=== PATIENT | female | born 1955 | race Caucasian/White ===

== ENCOUNTER → 2022-06-11 | Outpatient (CLI) | payer BC, MEDICARE ==
--- NOTE | 2022-06-11 16:48 | P.PN ---
Progress Note - Text Progress Note Date: 06/11/22 A 5 m walk test was completed with the patient today, time 1: 1.72 seconds, time 2: 1.77 seconds, time 3: 1.38 seconds. An STS risk score was calculated in discussed with the patient.
== END | disposition home or self-care (01) ==
LOC: LABPAT 08:58
PROVIDERS: ATTEND Surgery
DX: Z01.812 Encounter for preprocedural laboratory examination (principal); I25.10 Atherosclerotic heart disease of native coronary artery without angina pectoris
CPT/HCPCS: 93970

== ENCOUNTER 2022-06-17 05:36 | Inpatient (IN) | payer BC, MEDICARE ==
[2022-06-17] MEDS ORDERED: METOPROLOL TARTRATE 12.5 MG TAB PO ONE (06:00)
[2022-06-17] MEDS ORDERED: NITROGLYCERIN-D5W PMX 25 MG/250 ML BTL IV ONE (06:00)
[2022-06-17] MEDS ORDERED: PHENYLEPHRINE 10 MG/ML VIAL IV ONE (06:00)
[2022-06-17] MEDS ORDERED: ELECTROLYTE-A SOLUTION 1,000 ML with POTASSIUM CHLORIDE 100 MEQ, MAGNESIUM SULFATE 16 M... IV ONE ×5 (06:00)
[2022-06-17] MEDS ORDERED: LACTATED RINGERS 1,000 ML IV ONE ×2 (06:00→06:37)
[2022-06-17] MEDS ORDERED: ASPIRIN 325 MG TAB PO ONE (06:00)
[2022-06-17] MEDS ORDERED: CHLORHEXIDINE GLUCONATE 15 ML CUP MUCOUS MEM ONE (06:00)
[2022-06-17] MEDS ORDERED: NOREPINEPHRINE 4 MG in SODIUM CHLORIDE 0.9% 250 ML IV ONE (06:00)
[2022-06-17] MEDS ORDERED: TRANEXAMIC ACID 2,000 MG in SODIUM CHLORIDE 0.9% 80 ML IV ONE (06:00)
[2022-06-17] MEDS ORDERED: PROTAMINE SULFATE 250 MG in EMPTY BAG 1 BAG IV ONE (06:00)
[2022-06-17] MEDS ORDERED: SODIUM CHLORIDE 0.9% 1,000 ML IV ONE (06:00)
[2022-06-17] MEDS ORDERED: HEPARIN SODIUM,PORCINE 5,000 UNIT in SODIUM CHLORIDE 0.9% 500 ML 500 ML IV ONE (06:00)
[2022-06-17] MEDS ORDERED: PHENYLEPHRINE 40 MG in SODIUM CHLORIDE 0.9% 250 ML IV ONE (06:00)
[2022-06-17] MEDS ORDERED: MUPIROCIN 2% OINT 22 GM TUBE NASAL ONE (06:00)
[2022-06-17] MEDS ORDERED: MAGNESIUM SULFATE 16.24 MEQ in EMPTY SYRINGE 1 SYR IV ONE (06:00)
[2022-06-17] MEDS ORDERED: PAPAVERINE 360 MG in SODIUM CHLORIDE 0.9% 90 ML IV ONE ×2 (06:00→10:09)
[2022-06-17] MEDS ORDERED: ALBUMIN HUMAN 25% 50 ML IV ONE (06:00)
[2022-06-17] MEDS ORDERED: NITROGLYCERIN SL TABS 0.4 MG TAB SUBLINGUAL ONE (06:00)
[2022-06-17] MEDS ORDERED: SODIUM BICARB 8.4% 50 ML SYR (1 MEQ/ML) IV ONE (06:00)
[2022-06-17] MEDS ORDERED: NITROGLYCERIN-D5W PMX 50 MG in DEXTROSE/WATER 1 250ML.BAG IV ONE (06:00)
[2022-06-17] MEDS ORDERED: ELECTROLYTE-A SOLUTION 1,000 ML with POTASSIUM CHLORIDE 40 MEQ, MAGNESIUM SULFATE 16 ME... IV ONE ×5 (06:00)
[2022-06-17] MEDS ORDERED: propofoL 1,000 MG/100 ML VIAL IV ONE (06:00)
[2022-06-17] MEDS ORDERED: PROTAMINE SULFATE 10 MG/ML 25 ML VIAL IV ONE (06:00)
[2022-06-17] MEDS ORDERED: INSULIN REGULAR 100 UNIT in SODIUM CHLORIDE 0.9% 100 ML IV ONE (06:00)
[2022-06-17] MEDS ORDERED: CLEVIDIPINE BUTYRATE 25 MG in EMPTY BAG 1 BAG IV ONE (06:00)
[2022-06-17] MEDS ORDERED: MANNITOL 25% 12.5 GM/50 ML VIAL IV ONE (06:00)
[2022-06-17] MEDS ORDERED: ATORVASTATIN 10 MG TAB PO ONE (06:00)
[2022-06-17] MEDS ORDERED: ceFAZolin 1,000 MG in SODIUM CHLORIDE 0.9% IRRIGATIO 1,000 ML IRRIGATION ONE (06:00)
[2022-06-17] MEDS ORDERED: ALBUMIN HUMAN 5% 500 ML IVPB ONE (06:00)
[2022-06-17] MEDS ORDERED: HEPARIN SODIUM 1,000 UN/ML (10ML VL) IV ONE (06:00)
[2022-06-17] MEDS ORDERED: CALCIUM CHLORIDE 100 MG/ML 10 ML SYRINGE IV ONE (06:00)
[2022-06-17] MEDS ORDERED: ONDANSETRON 4 MG/2 ML VIAL ONE (06:51)
[2022-06-17] MEDS ORDERED: SODIUM CHLORIDE 0.9% 100 ML with ceFAZolin 2,000 MG IV ONE ×4 (08:15→12:15)
[2022-06-17 08:47] LABS: ABG Base Excess 1.5 mmol/L; ABG Glucose Whole Blood 94 mg/dL (75-99); ABG HCO3 25 mmol/L (21-25); ABG Hematocrit 37 % (34.0-46.0); ABG Ionized Calcium 4.6 mg/dL (4.5-5.3); ABG Lactic Acid Whole Blood 1.3 mmol/L (0.5-1.6); ABG Oxygen Saturation 99.9 % (94-97); ABG PCO2 34 mmHg (35-45); ABG PH 7.47 (7.35-7.45); ABG Potassium Whole Blood 4.5 mmol/L (3.4-4.5); ABG Sodium Whole Blood 141 mmol/L (135-146); ABG TCO2 26 mmol/L (19-24)
[2022-06-17 09:57] LABS: ABG Base Excess 0.9 mmol/L; ABG Glucose Whole Blood 110 mg/dL (75-99); ABG HCO3 25 mmol/L (21-25); ABG Hematocrit 34 % (34.0-46.0); ABG Ionized Calcium 4.6 mg/dL (4.5-5.3); ABG Oxygen Saturation 99.2 % (94-97); ABG PCO2 38 mmHg (35-45); ABG PH 7.43 (7.35-7.45); ABG PO2 184 mmHg (83-108); ABG Potassium Whole Blood 4.1 mmol/L (3.4-4.5); ABG Sodium Whole Blood 141 mmol/L (135-146); ABG TCO2 26 mmol/L (19-24)
[2022-06-17] MEDS ORDERED: SODIUM CHLORIDE 0.9% 500 ML 500 ML with HEPARIN SODIUM,PORCINE 5,000 UNIT IV ONE ×2 (10:08)
[2022-06-17 10:39] LABS: ABG Base Excess -0.3 mmol/L; ABG Glucose Whole Blood 123 mg/dL (75-99); ABG HCO3 23 mmol/L (21-25); ABG Ionized Calcium 3.9 mg/dL (4.5-5.3); ABG Lactic Acid Whole Blood 1.1 mmol/L (0.5-1.6); ABG PCO2 33 mmHg (35-45); ABG PH 7.46 (7.35-7.45); ABG Potassium Whole Blood 3.9 mmol/L (3.4-4.5); ABG Sodium Whole Blood 136 mmol/L (135-146); ABG TCO2 24 mmol/L (19-24)
[2022-06-17 11:07] LABS: ABG Base Excess 0.4 mmol/L; ABG Glucose Whole Blood 136 mg/dL (75-99); ABG HCO3 25 mmol/L (21-25); ABG Lactic Acid Whole Blood 1.1 mmol/L (0.5-1.6); ABG Oxygen Saturation 99.7 % (94-97); ABG PCO2 39 mmHg (35-45); ABG PH 7.41 (7.35-7.45); ABG PO2 249 mmHg (83-108); ABG Sodium Whole Blood 138 mmol/L (135-146); ABG TCO2 26 mmol/L (19-24)
--- NOTE | 2022-06-17 11:21 | P.ANPRN ---
Procedure Note - Anesthesia - Invasive Line Left Arterial Line Time Out Performed: Yes Date of Procedure: 06/17/22 Location of Patient: PreOp Preparation: Sterile Prep, Sterile Dressing Arterial Line Location: Radial Ultrasound Used: No Purpose - Visualization and Identification of Vasculature: No (left radial 20 guage inserted) Narrative: Central line placement per sterile protocol utilized.
--- NOTE | 2022-06-17 11:22 | P.ANPRN ---
Procedure Note - Anesthesia - Invasive Line Right Brave Zeyad Time Out Performed: Yes Date of Procedure: 06/17/22 Location of Patient: PreOp Preparation: Sterile Prep, Sterile Dressing Ultrasound Used: No Purpose - Visualization and Identification of Vasculature: No (right int jugular 9fr catheter inserted) Narrative: Central line placement per sterile protocol utilized.
[2022-06-17 11:44] LABS: ABG Base Excess 0.6 mmol/L; ABG Glucose Whole Blood 144 mg/dL (75-99); ABG HCO3 26 mmol/L (21-25); ABG Ionized Calcium 4.1 mg/dL (4.5-5.3); ABG Lactic Acid Whole Blood 1.1 mmol/L (0.5-1.6); ABG Oxygen Saturation 99.7 % (94-97); ABG PCO2 42 mmHg (35-45); ABG PH 7.39 (7.35-7.45); ABG PO2 382 mmHg (83-108); ABG Potassium Whole Blood 4.9 mmol/L (3.4-4.5); ABG Sodium Whole Blood 139 mmol/L (135-146); ABG TCO2 27 mmol/L (19-24)
[2022-06-17 12:37] LABS: ABG PO2 >420 mmHg (83-108)
[2022-06-17 12:38] LABS: ABG Hematocrit 24 % (34.0-46.0); ABG PO2 >420 mmHg (83-108)
[2022-06-17 12:39] LABS: ABG Hematocrit 23 % (34.0-46.0)
[2022-06-17 12:40] LABS: ABG Hematocrit 24 % (34.0-46.0)
[2022-06-17 12:48] LABS: ABG Glucose Whole Blood 146 mg/dL (75-99); ABG HCO3 25 mmol/L (21-25); ABG Hematocrit 28 % (34.0-46.0); ABG Ionized Calcium 4.8 mg/dL (4.5-5.3); ABG Lactic Acid Whole Blood 1.6 mmol/L (0.5-1.6); ABG Oxygen Saturation 99.1 % (94-97); ABG PCO2 37 mmHg (35-45); ABG PH 7.44 (7.35-7.45); ABG PO2 167 mmHg (83-108); ABG Potassium Whole Blood 4.3 mmol/L (3.4-4.5); ABG Sodium Whole Blood 140 mmol/L (135-146); ABG TCO2 26 mmol/L (19-24)
[2022-06-17] MEDS ORDERED: Magnesium Replacement Protocol 1 EACH MISC MISCELLANE PRN (13:20)
[2022-06-17] MEDS ORDERED: AMIODARONE 360 MG in DEXTROSE 5% IN WATER 200 ML IV PRN ×2 (13:20)
[2022-06-17] MEDS ORDERED: CALCIUM GLUCONATE IN NACL 2 GM in SALINE 1 100ML.BAG IVPB PRN (13:20)
[2022-06-17] MEDS ORDERED: BENZOCAINE/MENTHOL LOZENG 1 EACH LOZENGE MUCOUS MEM PRN (13:20)
[2022-06-17] MEDS ORDERED: IPRATROPIUM-ALBUTEROL 3 ML NEB INHALATION PRN (13:20)
[2022-06-17] MEDS ORDERED: DEXMEDETOMIDINE/0.9% NACL(PMX) 400 MCG in EMPTY BAG 1 BAG IV SCH (13:20)
[2022-06-17] MEDS ORDERED: DEXTROSE 50% SYRINGE 50 ML IVP PRN ×2 (13:20)
[2022-06-17] MEDS ORDERED: ONDANSETRON 4 MG/2 ML VIAL IVP PRN (13:20)
[2022-06-17] MEDS ORDERED: CLEVIDIPINE BUTYRATE 25 MG in EMPTY BAG 1 BAG IV SCH (13:20)
[2022-06-17] MEDS ORDERED: Potassium Replacement Protocol 1 EACH MISC MISCELLANE PRN (13:20)
[2022-06-17] MEDS ORDERED: hydrALAZINE HCL 20 MG/ML 1 ML VIAL IVP PRN (13:20)
[2022-06-17] MEDS ORDERED: AMIODARONE 450 MG in DEXTROSE 5% IN WATER 250 ML IV PRN ×2 (13:20)
[2022-06-17] MEDS ORDERED: NITROGLYCERIN-D5W PMX 50 MG in DEXTROSE/WATER 1 250ML.BAG IV SCH (13:20)
[2022-06-17] MEDS ORDERED: METOCLOPRAMIDE 5 MG/ML 2 ML VIAL IVP PRN (13:20)
[2022-06-17] MEDS ORDERED: INSULIN REGULAR 100 UNIT in SODIUM CHLORIDE 0.9% 100 ML IV SCH (13:20)
[2022-06-17 13:44] LABS: Glucose,Whole Blood 132 mg/dL (70-110)
[2022-06-17 14:00] LABS: Basophils % (A) 0 %; Eosinophils # (A) 0.1 k/uL (0-0.7); Eosinophils % (A) 0 %; HCT 31.9 % (34.0-46.0); Lymphocytes # (A) 1.2 k/uL (1.0-4.8); Lymphocytes % (A) 9 %; MCH 30.7 pg (25.0-35.0); MCHC 34.4 g/dL (31.0-37.0); MCV 89.5 fL (80.0-100.0); Mean Platelet Volume 8.6; Monocytes # (A) 0.4 k/uL (0-1.0); Monocytes % (A) 3 %; Neutrophils # (A) 11.6 k/uL (1.3-7.7); Neutrophils % (A) 87 %; Platelet Count 107 k/uL (150-450); RBC 3.57 m/uL (3.80-5.40); RDW 13.4 % (11.5-15.5); WBC 13.4 k/uL (3.8-10.6)
[2022-06-17] MEDS: LACTATED RINGERS 1,000 ML IV SCH (14:00)
[2022-06-17 14:09] LABS: INR 1.1 (<1.2); Partial Thromboplastin Time 24.4 sec (22.0-30.0)
[2022-06-17 14:12] LABS: Ionized Calcium 5.2 mg/dL (4.5-5.3)
[2022-06-17 14:20] LABS: ABG Base Excess 0.4 mmol/L; ABG HCO3 26 mmol/L (21-25); ABG Oxygen Saturation 98.8 % (94-97); ABG PCO2 43 mmHg (35-45); ABG PH 7.38 (7.35-7.45); ABG PO2 >400 mmHg (83-108); ABG TCO2 27 mmol/L (19-24)
--- NOTE | 2022-06-17 14:27 | XR ---
EXAMINATION TYPE: XR chest 1V portable DATE OF EXAM: 06/17/2022 COMPARISON: None INDICATION: Postop cardiac surgery TECHNIQUE: Single frontal view of the chest is obtained. FINDINGS: The heart size is normal. The pulmonary vasculature is normal. There is linear opacities within the left mid and lower lung field may be some atelectatic changes. B ilateral chest tubes are present. Pneumothorax is not identified. Images in the supine position, smal l pneumothorax may be more difficult to identify. [place]-Zeyad catheter is present with the tip in the m ain pulmonary artery region. Endotracheal tube tip appears to be at the richard. This could be pulled back approximately 2 cm. Mediastinal tube is present. Nasogastric tube transverses the thorax tip in left upper quadrant of the abdomen. Sternotomy wires are in the midline. IMPRESSION: 1. Low-lying endotracheal tube at nearly the level of the richard. This could be pulled back 2 cm. 2. Additional Lines and catheters discussed above. 3. Atelectatic type changes left mid lung. A Red level critical message alert has been initiated for Venita Negron via the [employer] Results System on 06/17/2022 2:24 PM. This message alert has been sent to Venita Negron via the pref erences provided by the clinician for the receipt of Radiology Critical Findings. Message ID [id number].
[2022-06-17 14:28] LABS: ALT 24 U/L (4-34); AST 54 U/L (14-36); African American GFR (CKD) >90 (>60 ml/min/1.73 sqM); Albumin 2.7 g/dL (3.5-5.0); Alkaline Phosphatase 51 U/L (38-126); Anion Gap 2 mmol/L; Blood Urea Nitrogen 12 mg/dL (7-17); Calcium 8.3 mg/dL (8.4-10.2); Carbon Dioxide 25 mmol/L (22-30); Chloride 110 mmol/L (98-107); Glucose 134 mg/dL (74-99); Magnesium 2.7 mg/dL (1.6-2.3); Non-African American GFR(CKD) >90 (>60 ml/min/1.73 sqM); Potassium 4.4 mmol/L (3.5-5.1); Sodium 137 mmol/L (137-145); Total Bilirubin 0.5 mg/dL (0.2-1.3); Total Protein 4.4 g/dL (6.3-8.2)
--- NOTE | 2022-06-17 14:34 | P.CNPUL ---
History of Present Illness Consult date: 06/17/22 Requesting physician: Lukasz Belle Reason for consult: other (Mechanical ventilator/critical care management) Chief complaint: Coronary artery disease History of present illness: This is a 66-year-old female with history of hyperlipidemia, paroxysmal atrial fibrillation anticoagulated with Eliquis, hypothyroidism, endometrial cancer previous hysterectomy, arthritis. She had developed chest discomfort over 2-3 months which occurred with minimal activity and resided on its own. She did not go stress testing with reversible ischemia and subsequent cardiac catheterization which revealed multivessel coronary artery disease not amendable to PCI. She was seen in consultation by cardiothoracic surgery who recommended coronary artery bypass grafting. Her ejection fraction was stable at 55-60%. No significant valvular abnormalities. No pulmonary hypertension. She was brought in today for an elective coronary revascularization surgery. She received a HERNANDEZ to the LAD and a saphenous vein graft to the OM. She is seen in the immediate postoperative setting in the ICU. She is intubated on mechanical ventilator with current settings assist-control mode at a rate of 12, tidal volume 350, FiO2 100% and a PEEP of 8. Left pleural and mediastinal chest tube secured in place. [place]-Zeyad catheter in place. Cardiac output 3.8. Cardiac index 2.3. PA pressures 27/16. Arterial pressure is 124/69. She is sedated on propofol currently at 20 mg/kg/m. She is on a nitroglycerin drip at 5 mg/m. White count 13.4. Hemoglobin 11.0. Arterial blood gases with a pO2 of 167, pO2 37 and a pH of 7.44. Blood glucose 132. She'll be initiated and DuoNeb inhalations every 4 hours. Antibiotics in the form of cefazolin. Lactated Ringer's at 50 MLS per hour. Review of Systems ROS unobtainable: due to endotracheal tube Past Medical History Past Medical History: Atrial Fibrillation, Coronary Artery Disease (CAD), Cancer, GERD/Reflux, Hyperlipidemia, Osteoarthritis (OA) Additional Past Medical History / Comment(s): chronic back pain,PVCs,SOB,hx Covid infection January 2022,uterine CA 2007-no chemo History of Any Multi-Drug Resistant Organisms: None Reported Past Surgical History: Section, Hysterectomy Past Anesthesia/Blood Transfusion Reactions: No Reported Reaction Additional Past Anesthesia/Blood Transfusion Reaction / Comment(s): no hx blood transfusion Past Psychological History: No Psychological Hx Reported Smoking Status: Former smoker Past Alcohol Use History: None Reported Additional Past Alcohol Use History / Comment(s): quit smoking 38 yrs ago Past Drug Use History: None Reported - Past Family History Brother(s) Family Medical History: Deep Vein Thrombosis (DVT), Pulmonary Embolus Father Family Medical History: Myocardial Infarction ([place]) Additional Family Medical History / Comment(s): [place] at age of 38,lived to Medications and Allergies Home Medications Medication Instructions Recorded Confirmed Type Apixaban [Eliquis] 5 mg PO BID 05/31/22 06/17/22 History Aspirin 324 mg PO DAILY 06/11/22 06/17/22 History Cholecalciferol [Vitamin D3 (10 125 mcg PO DAILY 06/11/22 06/17/22 History Mcg = 400 Iu)] Levothyroxine Sodium [Synthroid] 25 mcg PO QAM 06/11/22 06/17/22 History Vitamin B Complex W/ Vit C 1 dose PO DAILY 06/11/22 06/17/22 History Vitamin E (Dl,Tocopheryl Acet) 180 mg PO DAILY 06/11/22 06/17/22 History [Vitamin E (400 Iu = 180 mg)] Atorvastatin Calcium [Lipitor] 80 mg PO HS 06/14/22 06/17/22 History Metoprolol Succinate (ER) [Toprol 50 mg PO HS 06/14/22 06/17/22 History Xl] Potassium Gluconate [Potassium 99 mg PO DAILY 06/14/22 06/17/22 History Gluconate ER] Zinc Gluconate [Zinc] 50 mg PO DAILY 06/14/22 06/17/22 History Acetaminophen [Tylenol Extra 500 mg PO BID PRN 06/16/22 06/17/22 History Strength] Ibuprofen 800 mg PO Q8H PRN 06/16/22 06/17/22 History Allergies Allergy/AdvReac Type Severity Reaction Status Date / Time bacitracin Allergy blisters Verified 06/17/22 06:10 [From Neosporin ([id number])] neomycin Allergy blisters Verified 06/17/22 06:10 [From Neosporin ([id number])] nickel Allergy blisters Verified 06/17/22 06:10 polymyxin B Allergy blisters Verified 06/17/22 06:10 [From Neosporin ([id number])] Physical Exam Vitals: Vital Signs Temp Pulse Resp BP Pulse Ox FiO2 06/17/22 13:41 100 06/17/22 06:19 97.0 F L 70 15 124/78 96 Intake and Output 06/16/22 06/17/22 06/17/22 22:59 06:59 14:59 Intake Total 202 Output Total 2510 Balance -2308 Intake: IV 202 Output: Urine 1310 Estimated Blood Loss 1200 Other: Weight 71.7 kg GENERAL EXAM: Intubated, sedated 66-year-old female on mechanical ventilator, comfortable in no apparent distress. HEAD: Normocephalic. EYES: Normal reaction of pupils, equal size. NOSE: Clear with pink turbinates. THROAT: No erythema or exudates. NECK: No masses, no JVD. CHEST: Sternal dressing dry and intact. Heart hugger in place. Mediastinal and left pleural chest tubes in place. Pacer wires in place. LUNGS: Equal air entry with no crackles, wheeze, rhonchi or dullness. CVS: S1 and S2 normal with no audible murmur, regular rhythm. ABDOMEN: No hepatosplenomegaly, normal bowel sounds, no guarding or rigidity. SPINE: No scoliosis or deformity SKIN: No rashes CENTRAL NERVOUS SYSTEM: Sedated, tone is normal in all 4 extremities. EXTREMITIES: SCDs in place. There is no peripheral edema. No clubbing, no cyanosis. Peripheral pulses are intact. Results - Laboratory Findings CBC and BMP: 06/17/22 13:43 ABG ABG pH 7.44 (7.35-7.45) 06/17/22 12:48 ABG pCO2 37 mmHg (35-45) 06/17/22 12:48 ABG pO2 167 mmHg (83-108) H 06/17/22 12:48 ABG O2 Saturation 99.1 % (94-97) H 06/17/22 12:48 PT/INR, D-dimer PT 12.0 sec (9.0-12.0) 06/17/22 13:43 INR 1.1 (<1.2) 06/17/22 13:43 Abnormal lab findings: Abnormal Labs 06/11/22 06/17/22 06/17/22 09:08 08:46 09:56 WBC RBC Hgb Hct Plt Count Neutrophils # ABG pH 7.47 H ABG pCO2 34 L ABG pO2 >420 H 184 H ABG HCO3 ABG Total CO2 26 H 26 H ABG O2 Saturation 99.9 H 99.2 H ABG Hematocrit ABG Potassium ABG Ionized Calcium ABG Glucose 110 H Hemoglobin 10.9 L POC Glucose (mg/dL) Arterial Blood Potassium Arterial Blood Glucose 110 H Crossmatch See Detail 06/17/22 06/17/22 06/17/22 10:38 11:06 11:43 WBC RBC Hgb Hct Plt Count Neutrophils # ABG pH 7.46 H ABG pCO2 33 L ABG pO2 >420 H 249 H 382 H ABG HCO3 26 H ABG Total CO2 26 H 27 H ABG O2 Saturation 100.0 H 99.7 H 99.7 H ABG Hematocrit 24 L 23 L 24 L ABG Potassium 5.0 H 4.9 H ABG Ionized Calcium 3.9 L 4.0 L 4.1 L ABG Glucose 123 H 136 H 144 H Hemoglobin 7.8 L 7.3 L 7.9 L POC Glucose (mg/dL) Arterial Blood Potassium 5.0 H 4.9 H Arterial Blood Glucose 123 H 136 H 144 H Crossmatch 06/17/22 06/17/22 06/17/22 12:48 13:42 13:43 WBC 13.4 H RBC 3.57 L Hgb 11.0 L Hct 31.9 L Plt Count 107 L Neutrophils # 11.6 H ABG pH ABG pCO2 ABG pO2 167 H ABG HCO3 ABG Total CO2 26 H ABG O2 Saturation 99.1 H ABG Hematocrit 28 L ABG Potassium ABG Ionized Calcium ABG Glucose 146 H Hemoglobin 9.0 L POC Glucose (mg/dL) 132 H Arterial Blood Potassium Arterial Blood Glucose 146 H Crossmatch - Diagnostic Findings Chest x-ray: image reviewed Assessment and Plan Assessment: Coronary artery disease status post coronary artery bypass grafting utilizing a HERNANDEZ to the LAD, SVG to OM. Postoperative day #0 Hypoxemic respiratory failure secondary to above, expected outcome, remains on the mechanical ventilator History of paroxysmal atrial fibrillation, anticoagulated with all this, currently on hold Hyperlipidemia Hypothyroidism History of endometrial cancer with previous hysterectomy Arthritis Plan: The patient was seen and evaluated Chest x-ray, ABGs, medications and labs reviewed Continue current vent settings Titrate the FiO2 down as tolerated We will plan for early extubation protocol Continue the current treatment plan We will continue to follow and make further recommendations based on her clinical status I have personally seen and examined the patient, performed the documentation and the assessment and plan as written. Number of minutes spent on the visit: 20.
[2022-06-17 14:59] LABS: Glucose,Whole Blood 150 mg/dL (70-110)
[2022-06-17] MEDS: ALBUMIN HUMAN 5% 250 ML in EMPTY BAG 1 BAG IVPB PRN (15:12)
[2022-06-17] MEDS: HEPARIN SODIUM,PORCINE/PF 5,000 UNIT/0.5 ML SYRINGE SQ SCH ×2 (15:24→23:33)
[2022-06-17] MEDS ORDERED: IPRATROPIUM-ALBUTEROL 3 ML NEB INHALATION SCH (16:00)
[2022-06-17 16:06] LABS: Glucose,Whole Blood 138 mg/dL (70-110)
[2022-06-17 16:38] LABS: Basophils % (A) 0 %; Eosinophils % (A) 0 %; HCT 31.8 % (34.0-46.0); HGB 11.1 gm/dL (11.4-16.0); Lymphocytes # (A) 1.2 k/uL (1.0-4.8); Lymphocytes % (A) 8 %; MCHC 34.8 g/dL (31.0-37.0); MCV 89.1 fL (80.0-100.0); Mean Platelet Volume 8.7; Monocytes # (A) 0.6 k/uL (0-1.0); Monocytes % (A) 4 %; Neutrophils # (A) 12.5 k/uL (1.3-7.7); Neutrophils % (A) 86 %; Platelet Count 118 k/uL (150-450); RBC 3.57 m/uL (3.80-5.40); RDW 13.4 % (11.5-15.5); WBC 14.5 k/uL (3.8-10.6)
[2022-06-17 17:11] LABS: Glucose,Whole Blood 161 mg/dL (70-110)
[2022-06-17] MEDS: KETOROLAC 15 MG/ML 1 ML VIAL IVP SCH ×2 (17:18→23:35)
[2022-06-17] MEDS: ACETAMINOPHEN IV (For NPO) 1,000 MG in EMPTY BAG 1 BAG IVPB SCH ×2 (17:18→23:34)
[2022-06-17 18:16] LABS: Glucose,Whole Blood 144 mg/dL (70-110)
[2022-06-17 18:55] LABS: Glucose,Whole Blood 136 mg/dL (70-110)
[2022-06-17 19:02] LABS: Basophils % (A) 0 %; Eosinophils % (A) 0 %; HCT 31.2 % (34.0-46.0); Lymphocytes # (A) 0.7 k/uL (1.0-4.8); Lymphocytes % (A) 5 %; MCH 31.7 pg (25.0-35.0); MCHC 35.3 g/dL (31.0-37.0); MCV 89.9 fL (80.0-100.0); Mean Platelet Volume 9.5; Monocytes # (A) 0.5 k/uL (0-1.0); Monocytes % (A) 4 %; Neutrophils # (A) 13.2 k/uL (1.3-7.7); Neutrophils % (A) 91 %; Platelet Count 111 k/uL (150-450); RBC 3.47 m/uL (3.80-5.40); RDW 13.1 % (11.5-15.5); WBC 14.6 k/uL (3.8-10.6)
[2022-06-17] MEDS: IPRATROPIUM-ALBUTEROL 3 ML NEB INHALATION SCH (19:08)
[2022-06-17 20:00] LABS: Glucose,Whole Blood 138 mg/dL (70-110)
[2022-06-17 20:12] LABS: ABG Base Excess -0.7 mmol/L; ABG HCO3 24 mmol/L (21-25); ABG PCO2 41 mmHg (35-45); ABG PH 7.38 (7.35-7.45); ABG PO2 118 mmHg (83-108); ABG TCO2 26 mmol/L (19-24); Allen Test Performed? Yes
[2022-06-17 20:58] LABS: Glucose,Whole Blood 142 mg/dL (70-110)
[2022-06-17] MEDS ORDERED: MORPHINE SULFATE 2 MG/ML SYRINGE IVP STA (21:03)
--- NOTE | 2022-06-17 21:29 | OP ---
OPERATIVE REPORT PREOPERATIVE DIAGNOSIS: Coronary artery disease. POSTOPERATIVE DIAGNOSIS: Coronary artery disease. PROCEDURES PERFORMED: 1. Coronary artery bypass grafting x2 vessels (left internal mammary artery to left anterior descending artery, saphenous vein graft to obtuse marginal artery). 2. Endoscopic harvest, right greater saphenous vein. 3. Ligation of left atrial appendage using 35 mm AtriClip. 4. Pulmonary vein isolation. 5. Epiaortic ultrasound. 6. Transesophageal echocardiogram. YOUTH SPECIALIST: Mike Way PA-C ANESTHESIA: General. SPECIMEN: None. COMPLICATION: None. INDICATIONS FOR PROCEDURE: The patient is a 66-year-old female with a past medical history significant for hypercholesterolemia, arthritis, recent diagnosis of atrial fibrillation, and hypothyroidism, who reports progressive chest discomfort over the past 3 months. It is also associated with shortness of breath. A calcium scoring test was performed and found to be abnormal. Stress test revealed anterior wall reversible ischemia. Cardiac catheterization revealed a left main stenosis. A coronary artery bypass was recommended. The risks, benefits, and alternatives of procedure were discussed with the patient. All her questions were answered. Consent was obtained. FINDINGS: The left internal mammary artery was small in diameter, but had brisk flow. The LAD measured 1.3 mm. The obtuse marginal artery measured 1.3 mm. DESCRIPTION OF PROCEDURE: The patient was taken to the operating room, placed supine on the operating room table. After induction of general anesthesia, she was prepped and draped in the usual sterile fashion. Preoperative transesophageal echocardiogram confirmed a preserved ejection fraction with no significant valvular pathology. A median sternotomy was performed. The left internal mammary artery was harvested in a standard fashion taking care to clip all branches. Intravenous heparin was administered. The vessel was small in diameter, but had brisk flow. Simultaneously, greater saphenous vein was harvested from the right lower extremity using endoscopic technique. All branches were tied. Both the mammary artery and saphenous vein were good conduits. A pericardial cradle was created. The ascending aorta was palpated. There was no significant calcific plaque noted. Epiaortic ultrasound was then performed on the ascending aorta. Again, no calcific plaque or atheromatous disease was identified. Arterial cannula was placed in the distal ascending aorta. A venous cannula was placed through the right atrial appendage directed into the IVC. Both antegrade and retrograde catheters were placed as well. The patient was then placed on cardiopulmonary bypass with good decompression of the heart. Attention was then turned to the pulmonary vein isolation. The right-sided pulmonary veins were carefully dissected free and encircled. An AtriCure 1 was passed along the right atrial cuff. Using RFA ablation, 3 lesion sets were applied. The aortic cross-clamp was applied. Cold blood potassium cardioplegia was delivered in both antegrade and retrograde fashion to achieve arrest of the heart. Of note, cardioplegia was delivered every 15 to 20 minutes while the patient remained under crossclamp. I began by identifying the left atrial appendage. A 35-mm AtriClip was placed across its base to ensure ligation. Next, attention was turned to the lateral wall. The obtuse marginal artery was identified and dissected free. It was small in diameter, but I felt was amenable for bypass. A small arteriotomy was created. This vessel accepted a 1.0 mm probe. Using saphenous vein in a reverse fashion, end-to-side anastomosis was created. This was performed using a running 7-0 Prolene suture. The graft was hemostatic and had a great flow. Of note, all the patient's tissues were quite friable to touch. Next, attention was turned to the anterior wall. The left anterior descending artery was identified and dissected free in its midportion. A small arteriotomy was created. This vessel accepted a 1.0 mm probe. Using the left internal mammary artery, an end-to-side anastomosis was created. This was performed using a running 8-0 Prolene suture. The graft was hemostatic. The mammary pedicle was then tacked on the anterior surface of the heart. Attention was then turned to the proximal anastomosis. This was performed in end-to- side fashion using running 6-0 Prolene suture. 1 L of warm blood was delivered in retrograde fashion. Both lidocaine and magnesium were administered as well. The aortic crossclamp was removed. The vein graft was de-aired in the standard fashion. Distal anastomoses were inspected and appeared to be hemostatic. A temporary ventricular pacing wire was placed and brought through the skin. The patient was then weaned off cardiopulmonary bypass. She was without difficulty. Followup transesophageal echocardiogram confirmed preserved ejection fraction, which was actually improved compared to preoperative and no change of aortic pathology. Protamine was administered. There were no adverse reactions. The remaining cannulas were removed. The mediastinum was copiously irrigated with warm saline solution. Again, all surgical sites were inspected and appeared to be hemostatic. Soft tissues were reapproximated of the ascending aorta as well as the apex of the heart. Chest tubes were placed in both the left pleural space and mediastinum. A Phi drain was placed in the right pleural space. These were all secured to the skin using sutures. The sternum was then reapproximated using the primary cable system, which was nickel free given the patient's allergy. These were placed in a [id number] fashion. At the completion of closure, the sternum was well aligned. The remainder of the wound was closed in layers. A sterile dressing was applied. The patient appeared to tolerate the procedure well. There were no immediate complications. She returned to the ICU in critical, but stable condition. She did not receive any intraoperative blood products. EMMANUEL / PHUN: [phone] /
[2022-06-17 22:08] LABS: Glucose,Whole Blood 152 mg/dL (70-110)
[2022-06-17] MEDS: ATORVASTATIN 80 MG TAB PO SCH (22:23)
[2022-06-17 22:59] LABS: Glucose,Whole Blood 142 mg/dL (70-110)
[2022-06-18 00:03] LABS: Glucose,Whole Blood 130 mg/dL (70-110)
[2022-06-18 01:16] LABS: Glucose,Whole Blood 127 mg/dL (70-110)
[2022-06-18 02:12] LABS: Glucose,Whole Blood 122 mg/dL (70-110)
[2022-06-18 03:10] LABS: Glucose,Whole Blood 114 mg/dL (70-110)
[2022-06-18 03:57] LABS: Glucose,Whole Blood 128 mg/dL (70-110)
[2022-06-18 04:09] LABS: Basophils % (A) 0 %; Eosinophils % (A) 0 %; HCT 30.1 % (34.0-46.0); HGB 10.7 gm/dL (11.4-16.0); Lymphocytes # (A) 1.5 k/uL (1.0-4.8); Lymphocytes % (A) 9 %; MCH 31.9 pg (25.0-35.0); MCHC 35.7 g/dL (31.0-37.0); MCV 89.3 fL (80.0-100.0); Mean Platelet Volume 9.1; Monocytes # (A) 0.9 k/uL (0-1.0); Monocytes % (A) 5 %; Neutrophils # (A) 14.4 k/uL (1.3-7.7); Neutrophils % (A) 85 %; Platelet Count 122 k/uL (150-450); RBC 3.37 m/uL (3.80-5.40); RDW 13.1 % (11.5-15.5)
[2022-06-18 04:15] LABS: Ionized Calcium 4.8 mg/dL (4.5-5.3)
[2022-06-18 04:24] LABS: ALT 21 U/L (4-34); AST 53 U/L (14-36); African American GFR (CKD) >90 (>60 ml/min/1.73 sqM); Albumin 3.1 g/dL (3.5-5.0); Alkaline Phosphatase 54 U/L (38-126); Anion Gap 4 mmol/L; Blood Urea Nitrogen 14 mg/dL (7-17); Carbon Dioxide 26 mmol/L (22-30); Chloride 107 mmol/L (98-107); Glucose 122 mg/dL (74-99); Non-African American GFR(CKD) 88 (>60 ml/min/1.73 sqM); Potassium 4.4 mmol/L (3.5-5.1); Sodium 137 mmol/L (137-145); Total Bilirubin 0.3 mg/dL (0.2-1.3); Total Protein 4.8 g/dL (6.3-8.2)
[2022-06-18 05:01] LABS: Glucose,Whole Blood 135 mg/dL (70-110)
[2022-06-18 05:59] LABS: Glucose,Whole Blood 92 mg/dL (70-110)
[2022-06-18] MEDS: ALBUMIN HUMAN 5% 250 ML in EMPTY BAG 1 BAG IVPB PRN ×3 (06:16→10:09)
[2022-06-18] MEDS: KETOROLAC 15 MG/ML 1 ML VIAL IVP SCH ×4 (06:22→23:49)
[2022-06-18] MEDS: LEVOTHYROXINE 25 MCG TAB PO SCH (06:22)
[2022-06-18 06:49] LABS: Glucose,Whole Blood 147 mg/dL (70-110)
--- NOTE | 2022-06-18 07:12 | XR ---
EXAMINATION TYPE: XR chest 1V portable DATE OF EXAM: 06/18/2022 HISTORY: Post Op CABG COMPARISON: 06/17/2022 TECHNIQUE: Single view of the chest is submitted. FINDINGS: Endotracheal tube and NG tube have been moved. Bilateral chest tubes, mediastinal drains and [place]-Stefania z catheter remain unchanged in position. No evidence for sizable pneumothorax. Post operative changes of CABG. No sizeable pneumothorax. Scattered Pleural-parenchymal opacities may reflect atelectasis. The heart is not enlarged. IMPRESSION: 1. Post operative changes of CABG.
[2022-06-18] MEDS: ZINC SULFATE 220 MG CAP PO SCH (07:40)
[2022-06-18] MEDS: CLOPIDOGREL 75 MG TAB PO SCH (07:40)
[2022-06-18] MEDS: CHOLECALCIFEROL 125 MCG (5000 IU) TABLET PO SCH (07:40)
[2022-06-18] MEDS: HEPARIN SODIUM,PORCINE/PF 5,000 UNIT/0.5 ML SYRINGE SQ SCH ×3 (07:40→23:49)
[2022-06-18] MEDS: VITAMIN E (DL,TOCOPHERYL ACET) 400 UNIT (180 MG) CAP PO SCH (07:41)
[2022-06-18] MEDS: HYDROcodone/APAP 5-325MG 1 EACH TAB PO PRN ×3 (07:41→20:31)
[2022-06-18] MEDS: CYCLOBENZAPRINE 10 MG TAB PO PRN ×2 (07:47→22:09)
[2022-06-18] MEDS: IPRATROPIUM-ALBUTEROL 3 ML NEB INHALATION SCH ×4 (07:55→19:21)
[2022-06-18] MEDS: DEXTROSE 5% IN WATER 100 ML with AMIODARONE 150 MG IV PRN ×3 (08:00→14:27)
[2022-06-18] MEDS: METOPROLOL TARTRATE 25 MG TAB PO SCH ×2 (08:00→20:30)
--- NOTE | 2022-06-18 08:08 | P.PN ---
Subjective Progress Note Date: 06/18/22 Principal diagnosis: Coronary artery disease, stable angina. Previous medical history of hyperlipidemia, paroxysmal atrial fibrillation, hypothyroid, endometrial cancer, previous tobacco dependence POD #1 coronary artery bypass grafting 2 vessels, left internal mammary artery to the left anterior descending artery, reverse saphenous vein graft to the obtuse marginal artery, endoscopic harvesting of the right greater saphenous vein, ligation of the left atrial appendage using a 35 mm AtriClip, pulmonary vein isolation, epi-aortic ultrasound, intraoperative transesophageal echocardiogram Postoperative acute blood loss anemia and thrombocytopenia, expected given hemodilution and cardiopulmonary bypass pump Atrial fibrillation, known comment occurrence after open heart surgery especially with history of paroxysmal atrial fibrillation, not a complication The patient was seen and examined this morning sitting up in a recliner on the intensive care unit in no acute distress. She was successfully extubated last night at 20:23. Initially she was in sinus rhythm, however shortly after assessment she went into atrial fibrillation with heart rate in the 130s to 140s . Remains hemodynamically stable. States post surgical pain is mostly controlled with current medication regimen, denies shortness of breath, her only complaint is of back spasms which she states she has had in the past. She is currently on 2 L nasal cannula with oxygen saturation in the mid 90s. Lab work and chest x-ray reviewed. Right internal jugular [place]/Cordis, left radial arterial line, mediastinal/right/left pleural chest tubes all present. No other new concerns. Objective - Vital Signs Vital signs: Vital Signs Temp 99.9 F H 06/18/22 04:00 Pulse 70 06/18/22 07:00 Resp 12 06/18/22 07:00 BP 124/78 06/17/22 06:19 Pulse Ox 96 06/18/22 07:00 FiO2 40 06/17/22 19:22 Intake & Output 06/17/22 06/18/22 06/18/22 18:59 06:59 18:59 Intake Total 872.633 8993.130 Output Total 3505 919 Balance -2763.506 139.130 Weight 74.1 kg Intake: IV 366 278 cardiac index 110 170 pressure bag 54 108 Intake, IV Titration 375.494 780.130 Amount ACETAMINOPHEN IV (For NPO 100 ) 1,000 mg In Empty Bag 1 bag @ 400 mls/hr IVPB Q6HR [facility] Rx#:[id number] Dexmedetomidine/0.9% NaCl 10.157 (Pmx) 400 mcg In Empty Bag 1 bag @ Titrate IV . Q0M [facility] Rx#:[id number] Insulin Regular 100 unit 2.98 19.973 In Sodium Chloride 0.9% 100 ml @ Per Protocol IV .Q0M [facility] Rx#:[id number] Lactated Ringers 1,000 ml 300 600 @ 20 mls/hr IV .Q24H [facility] Rx#:[id number] ceFAZolin 2 gm In Sodium 50 50 Chloride 0.9% 50 ml @ 100 mls/hr IVPB Q8HR [facility] Rx# :[id number] propofoL 1,000 mg In 22.514 Empty Bag 1 bag @ Titrate IV .Q0M [facility] Rx#: [id number] Output: Chest Tube Drainage 225 384 MS 95 164 MS/LP 130 220 Urine 2080 535 Estimated Blood Loss 1200 Other: Voiding Method Indwelling Catheter Indwelling Catheter ABP, PAP, CO, CI - Last Documented Arterial Blood Pressure 101/45 Pulmonary Artery Pressure 26/7 Cardiac Output 3.4 Cardiac Index 1.9 - Exam CONSTITUTIONAL: Appears comfortable, cooperative, no acute distress RESPIRATORY: Lungs sounds diminished bilaterally. Respirations even, nonlabor ed. Currently on 2 L nasal cannula with oxygen saturation 96%. Able to achieve 500 mL on incentive spirometry. Weak cough. CARDIOVASCULAR: S1, S2 present. Tachycardia, irregular rate and rhythm, rapid atrial fibrillation on telemetry. Sternum stable. Palpable peripheral pulses bilaterally. No edema present. No calf pain or tenderness noted. Heart hugger in place with patient demonstrating appropriate use. Antiembolism stockings, SCDs present. GASTROINTESTINAL: Abdomen soft, nontender, nondistended. Hypoactive bowel sounds present 4 quadrants. Tolerating clear liquids. Denies flatus, nausea, abdominal pain GENITOURINARY: Singh present draining clear, yellow urine. Output overnight 25-60 mL per hour INTEGUMENTARY: Skin is warm and dry with evidence of good perfusion. Anterior chest incision well approximated and covered with dry intact dressing. Right lower extremity EVH site well approximated without redness or drainage. NEUROLOGIC: Cranial nerves II through XII intact MUSKULOSKELETAL: Able to move all extremities, strength equal bilaterally, gait normal PSYCHIATRIC: Alert and oriented to person place and time, appropriate affect, intact judgment and insight INVASIVE LINES AND TUBES: Mediastinal/left/right pleural chest tubes present and connected to wall suction, no air leaks present. Mediastinal tube with 110 mL serosanguineous drainage overnight, 300 mL since surgery. Left/right pleural chest tubes with 130 mL serosanguineous drainage overnight, 350 mL since surgery. Ventricular epicardial pacemaker wire present, connected to generator, backup rate 50 bpm. Right internal jugular [place]/Cord[place], left radial arterial line present. Last CO/CI 3.4/1.9, PA 36/12, CVP 8. - Allied health notes Allied health notes reviewed: nursing - Labs CBC & Chem 7: 06/18/22 04:00 06/18/22 04:00 Labs: Abnormal Lab Results - Last 24 Hours (Table) 06/11/22 06/17/22 06/17/22 Range/Units 09:08 08:46 09:56 WBC (3.8-10.6) k/uL RBC (3.80-5.40) m/uL Hgb (11.4-16.0) gm/dL Hct (34.0-46.0) % Plt Count (150-450) k/uL Neutrophils # (1.3-7.7) k/uL Lymphocytes # (1.0-4.8) k/uL ABG pH 7.47 H (7.35-7.45) ABG pCO2 34 L (35-45) mmHg ABG pO2 >420 H 184 H (83-108) mmHg ABG HCO3 (21-25) mmol/L ABG Total CO2 26 H 26 H (19-24) mmol/L ABG O2 Saturation 99.9 H 99.2 H (94-97) % ABG Hematocrit (34.0-46.0) % ABG Potassium (3.4-4.5) mmol/L ABG Ionized Calcium (4.5-5.3) mg/dL ABG Glucose 110 H (75-99) mg/dL Hemoglobin 10.9 L (11.4-16.0) gm/dL Chloride (98-107) mmol/L Glucose (74-99) mg/dL POC Glucose (mg/dL) (70-110) mg/dL Calcium (8.4-10.2) mg/dL Magnesium (1.6-2.3) mg/dL AST (14-36) U/L Total Protein (6.3-8.2) g/dL Albumin (3.5-5.0) g/dL Arterial Blood Potassium (3.4-4.5) mmol/L Arterial Blood Glucose 110 H (75-99) mg/dL Crossmatch See Detail 06/17/22 06/17/22 06/17/22 Range/Units 10:38 11:06 11:43 WBC (3.8-10.6) k/uL RBC (3.80-5.40) m/uL Hgb (11.4-16.0) gm/dL Hct (34.0-46.0) % Plt Count (150-450) k/uL Neutrophils # (1.3-7.7) k/uL Lymphocytes # (1.0-4.8) k/uL ABG pH 7.46 H (7.35-7.45) ABG pCO2 33 L (35-45) mmHg ABG pO2 >420 H 249 H 382 H (83-108) mmHg ABG HCO3 26 H (21-25) mmol/L ABG Total CO2 26 H 27 H (19-24) mmol/L ABG O2 Saturation 100.0 H 99.7 H 99.7 H (94-97) % ABG Hematocrit 24 L 23 L 24 L (34.0-46.0) % ABG Potassium 5.0 H 4.9 H (3.4-4.5) mmol/L ABG Ionized Calcium 3.9 L 4.0 L 4.1 L (4.5-5.3) mg/dL ABG Glucose 123 H 136 H 144 H (75-99) mg/dL Hemoglobin 7.8 L 7.3 L 7.9 L (11.4-16.0) gm/dL Chloride (98-107) mmol/L Glucose (74-99) mg/dL POC Glucose (mg/dL) (70-110) mg/dL Calcium (8.4-10.2) mg/dL Magnesium (1.6-2.3) mg/dL AST (14-36) U/L Total Protein (6.3-8.2) g/dL Albumin (3.5-5.0) g/dL Arterial Blood Potassium 5.0 H 4.9 H (3.4-4.5) mmol/L Arterial Blood Glucose 123 H 136 H 144 H (75-99) mg/dL Crossmatch 06/17/22 06/17/22 06/17/22 Range/Units 12:48 13:42 13:43 WBC 13.4 H (3.8-10.6) k/uL RBC 3.57 L (3.80-5.40) m/uL Hgb 11.0 L (11.4-16.0) gm/dL Hct 31.9 L (34.0-46.0) % Plt Count 107 L (150-450) k/uL Neutrophils # 11.6 H (1.3-7.7) k/uL Lymphocytes # (1.0-4.8) k/uL ABG pH (7.35-7.45) ABG pCO2 (35-45) mmHg ABG pO2 167 H (83-108) mmHg ABG HCO3 (21-25) mmol/L ABG Total CO2 26 H (19-24) mmol/L ABG O2 Saturation 99.1 H (94-97) % ABG Hematocrit 28 L (34.0-46.0) % ABG Potassium (3.4-4.5) mmol/L ABG Ionized Calcium (4.5-5.3) mg/dL ABG Glucose 146 H (75-99) mg/dL Hemoglobin 9.0 L (11.4-16.0) gm/dL Chloride (98-107) mmol/L Glucose (74-99) mg/dL POC Glucose (mg/dL) 132 H (70-110) mg/dL Calcium (8.4-10.2) mg/dL Magnesium (1.6-2.3) mg/dL AST (14-36) U/L Total Protein (6.3-8.2) g/dL Albumin (3.5-5.0) g/dL Arterial Blood Potassium (3.4-4.5) mmol/L Arterial Blood Glucose 146 H (75-99) mg/dL Crossmatch 06/17/22 06/17/22 06/17/22 Range/Units 13:43 14:19 14:58 WBC (3.8-10.6) k/uL RBC (3.80-5.40) m/uL Hgb (11.4-16.0) gm/dL Hct (34.0-46.0) % Plt Count (150-450) k/uL Neutrophils # (1.3-7.7) k/uL Lymphocytes # (1.0-4.8) k/uL ABG pH (7.35-7.45) ABG pCO2 (35-45) mmHg ABG pO2 >400 H (83-108) mmHg ABG HCO3 26 H (21-25) mmol/L ABG Total CO2 27 H (19-24) mmol/L ABG O2 Saturation 98.8 H (94-97) % ABG Hematocrit (34.0-46.0) % ABG Potassium (3.4-4.5) mmol/L ABG Ionized Calcium (4.5-5.3) mg/dL ABG Glucose (75-99) mg/dL Hemoglobin (11.4-16.0) gm/dL Chloride 110 H (98-107) mmol/L Glucose 134 H (74-99) mg/dL POC Glucose (mg/dL) 150 H (70-110) mg/dL Calcium 8.3 L (8.4-10.2) mg/dL Magnesium 2.7 H (1.6-2.3) mg/dL AST 54 H (14-36) U/L Total Protein 4.4 L (6.3-8.2) g/dL Albumin 2.7 L (3.5-5.0) g/dL Arterial Blood Potassium (3.4-4.5) mmol/L Arterial Blood Glucose (75-99) mg/dL Crossmatch 06/17/22 06/17/22 06/17/22 Range/Units 16:04 16:05 17:10 WBC 14.5 H (3.8-10.6) k/uL RBC 3.57 L (3.80-5.40) m/uL Hgb 11.1 L (11.4-16.0) gm/dL Hct 31.8 L (34.0-46.0) % Plt Count 118 L (150-450) k/uL Neutrophils # 12.5 H (1.3-7.7) k/uL Lymphocytes # (1.0-4.8) k/uL ABG pH (7.35-7.45) ABG pCO2 (35-45) mmHg ABG pO2 (83-108) mmHg ABG HCO3 (21-25) mmol/L ABG Total CO2 (19-24) mmol/L ABG O2 Saturation (94-97) % ABG Hematocrit (34.0-46.0) % ABG Potassium (3.4-4.5) mmol/L ABG Ionized Calcium (4.5-5.3) mg/dL ABG Glucose (75-99) mg/dL Hemoglobin (11.4-16.0) gm/dL Chloride (98-107) mmol/L Glucose (74-99) mg/dL POC Glucose (mg/dL) 138 H 161 H (70-110) mg/dL Calcium (8.4-10.2) mg/dL Magnesium (1.6-2.3) mg/dL AST (14-36) U/L Total Protein (6.3-8.2) g/dL Albumin (3.5-5.0) g/dL Arterial Blood Potassium (3.4-4.5) mmol/L Arterial Blood Glucose (75-99) mg/dL Crossmatch 06/17/22 06/17/22 06/17/22 Range/Units 18:15 18:51 18:54 WBC 14.6 H (3.8-10.6) k/uL RBC 3.47 L (3.80-5.40) m/uL Hgb 11.0 L (11.4-16.0) gm/dL Hct 31.2 L (34.0-46.0) % Plt Count 111 L (150-450) k/uL Neutrophils # 13.2 H (1.3-7.7) k/uL Lymphocytes # 0.7 L (1.0-4.8) k/uL ABG pH (7.35-7.45) ABG pCO2 (35-45) mmHg ABG pO2 (83-108) mmHg ABG HCO3 (21-25) mmol/L ABG Total CO2 (19-24) mmol/L ABG O2 Saturation (94-97) % ABG Hematocrit (34.0-46.0) % ABG Potassium (3.4-4.5) mmol/L ABG Ionized Calcium (4.5-5.3) mg/dL ABG Glucose (75-99) mg/dL Hemoglobin (11.4-16.0) gm/dL Chloride (98-107) mmol/L Glucose (74-99) mg/dL POC Glucose (mg/dL) 144 H 136 H (70-110) mg/dL Calcium (8.4-10.2) mg/dL Magnesium (1.6-2.3) mg/dL AST (14-36) U/L Total Protein (6.3-8.2) g/dL Albumin (3.5-5.0) g/dL Arterial Blood Potassium (3.4-4.5) mmol/L Arterial Blood Glucose (75-99) mg/dL Crossmatch 06/17/22 06/17/22 06/17/22 Range/Units 19:57 20:10 20:57 WBC (3.8-10.6) k/uL RBC (3.80-5.40) m/uL Hgb (11.4-16.0) gm/dL Hct (34.0-46.0) % Plt Count (150-450) k/uL Neutrophils # (1.3-7.7) k/uL Lymphocytes # (1.0-4.8) k/uL ABG pH (7.35-7.45) ABG pCO2 (35-45) mmHg ABG pO2 118 H (83-108) mmHg ABG HCO3 (21-25) mmol/L ABG Total CO2 26 H (19-24) mmol/L ABG O2 Saturation 99.0 H (94-97) % ABG Hematocrit (34.0-46.0) % ABG Potassium (3.4-4.5) mmol/L ABG Ionized Calcium (4.5-5.3) mg/dL ABG Glucose (75-99) mg/dL Hemoglobin (11.4-16.0) gm/dL Chloride (98-107) mmol/L Glucose (74-99) mg/dL POC Glucose (mg/dL) 138 H 142 H (70-110) mg/dL Calcium (8.4-10.2) mg/dL Magnesium (1.6-2.3) mg/dL AST (14-36) U/L Total Protein (6.3-8.2) g/dL Albumin (3.5-5.0) g/dL Arterial Blood Potassium (3.4-4.5) mmol/L Arterial Blood Glucose (75-99) mg/dL Crossmatch 06/17/22 06/17/22 06/18/22 Range/Units 22:06 22:58 00:02 WBC (3.8-10.6) k/uL RBC (3.80-5.40) m/uL Hgb (11.4-16.0) gm/dL Hct (34.0-46.0) % Plt Count (150-450) k/uL Neutrophils # (1.3-7.7) k/uL Lymphocytes # (1.0-4.8) k/uL ABG pH (7.35-7.45) ABG pCO2 (35-45) mmHg ABG pO2 (83-108) mmHg ABG HCO3 (21-25) mmol/L ABG Total CO2 (19-24) mmol/L ABG O2 Saturation (94-97) % ABG Hematocrit (34.0-46.0) % ABG Potassium (3.4-4.5) mmol/L ABG Ionized Calcium (4.5-5.3) mg/dL ABG Glucose (75-99) mg/dL Hemoglobin (11.4-16.0) gm/dL Chloride (98-107) mmol/L Glucose (74-99) mg/dL POC Glucose (mg/dL) 152 H 142 H 130 H (70-110) mg/dL Calcium (8.4-10.2) mg/dL Magnesium (1.6-2.3) mg/dL AST (14-36) U/L Total Protein (6.3-8.2) g/dL Albumin (3.5-5.0) g/dL Arterial Blood Potassium (3.4-4.5) mmol/L Arterial Blood Glucose (75-99) mg/dL Crossmatch 06/18/22 06/18/22 06/18/22 Range/Units 01:15 02:10 03:08 WBC (3.8-10.6) k/uL RBC (3.80-5.40) m/uL Hgb (11.4-16.0) gm/dL Hct (34.0-46.0) % Plt Count (150-450) k/uL Neutrophils # (1.3-7.7) k/uL Lymphocytes # (1.0-4.8) k/uL ABG pH (7.35-7.45) ABG pCO2 (35-45) mmHg ABG pO2 (83-108) mmHg ABG HCO3 (21-25) mmol/L ABG Total CO2 (19-24) mmol/L ABG O2 Saturation (94-97) % ABG Hematocrit (34.0-46.0) % ABG Potassium (3.4-4.5) mmol/L ABG Ionized Calcium (4.5-5.3) mg/dL ABG Glucose (75-99) mg/dL Hemoglobin (11.4-16.0) gm/dL Chloride (98-107) mmol/L Glucose (74-99) mg/dL POC Glucose (mg/dL) 127 H 122 H 114 H (70-110) mg/dL Calcium (8.4-10.2) mg/dL Magnesium (1.6-2.3) mg/dL AST (14-36) U/L Total Protein (6.3-8.2) g/dL Albumin (3.5-5.0) g/dL Arterial Blood Potassium (3.4-4.5) mmol/L Arterial Blood Glucose (75-99) mg/dL Crossmatch 06/18/22 06/18/22 06/18/22 Range/Units 03:53 04:00 04:00 WBC 17.0 H (3.8-10.6) k/uL RBC 3.37 L (3.80-5.40) m/uL Hgb 10.7 L (11.4-16.0) gm/dL Hct 30.1 L (34.0-46.0) % Plt Count 122 L (150-450) k/uL Neutrophils # 14.4 H (1.3-7.7) k/uL Lymphocytes # (1.0-4.8) k/uL ABG pH (7.35-7.45) ABG pCO2 (35-45) mmHg ABG pO2 (83-108) mmHg ABG HCO3 (21-25) mmol/L ABG Total CO2 (19-24) mmol/L ABG O2 Saturation (94-97) % ABG Hematocrit (34.0-46.0) % ABG Potassium (3.4-4.5) mmol/L ABG Ionized Calcium (4.5-5.3) mg/dL ABG Glucose (75-99) mg/dL Hemoglobin (11.4-16.0) gm/dL Chloride (98-107) mmol/L Glucose 122 H (74-99) mg/dL POC Glucose (mg/dL) 128 H (70-110) mg/dL Calcium 8.0 L (8.4-10.2) mg/dL Magnesium (1.6-2.3) mg/dL AST 53 H (14-36) U/L Total Protein 4.8 L (6.3-8.2) g/dL Albumin 3.1 L (3.5-5.0) g/dL Arterial Blood Potassium (3.4-4.5) mmol/L Arterial Blood Glucose (75-99) mg/dL Crossmatch 06/18/22 06/18/22 Range/Units 05:00 06:47 WBC (3.8-10.6) k/uL RBC (3.80-5.40) m/uL Hgb (11.4-16.0) gm/dL Hct (34.0-46.0) % Plt Count (150-450) k/uL Neutrophils # (1.3-7.7) k/uL Lymphocytes # (1.0-4.8) k/uL ABG pH (7.35-7.45) ABG pCO2 (35-45) mmHg ABG pO2 (83-108) mmHg ABG HCO3 (21-25) mmol/L ABG Total CO2 (19-24) mmol/L ABG O2 Saturation (94-97) % ABG Hematocrit (34.0-46.0) % ABG Potassium (3.4-4.5) mmol/L ABG Ionized Calcium (4.5-5.3) mg/dL ABG Glucose (75-99) mg/dL Hemoglobin (11.4-16.0) gm/dL Chloride (98-107) mmol/L Glucose (74-99) mg/dL POC Glucose (mg/dL) 135 H 147 H (70-110) mg/dL Calcium (8.4-10.2) mg/dL Magnesium (1.6-2.3) mg/dL AST (14-36) U/L Total Protein (6.3-8.2) g/dL Albumin (3.5-5.0) g/dL Arterial Blood Potassium (3.4-4.5) mmol/L Arterial Blood Glucose (75-99) mg/dL Crossmatch - Imaging and Cardiology Chest x-ray: report reviewed, image reviewed Assessment and Plan Assessment: 1. Coronary artery disease, stable angina, status post 2 vessel CABG 2. Preserved left ventricular systolic function, EF 55-60% 3. History of hyperlipidemia, treated, cholesterol 208, LDL 129 4. Paroxysmal atrial fibrillation, on Eliquis outpatient, status post pulmonary vein isolation and left atrial appendage ligation 5. Hypothyroid, preoperative TSH 4.289 6. History of endometrial cancer 7. Previous tobacco dependence, preoperative FEV1 110% of predicted 8. Postoperative acute blood loss anemia and thrombocytopenia, expected 9. Atrial fibrillation, known comment occurrence after open heart surgery especially with history of paroxysmal atrial fibrillation, not a complication Plan: 1. Continue to maximize medical therapy with aspirin, statin, Plavix, beta wendy therapy. Will increase beta wendy therapy as tolerated 2. Initiate amiodarone protocol. Patient will likely be discharged home on her outpatient dose of Eliquis, no anticoagulation at this time 3. Wean O2 as tolerated. Encourage incentive spirometry 10 times every hour while awake. Bronchodilators per pulmonology 4. Increase activity, ambulate as tolerated. PT/OT/cardiac rehab consulted 5. Will monitor daily labs and x-rays. Electrolyte replacement per protocol 6. GI/DVT prophylaxis 7. Pain control with current medication regimen 8. Insulin management per primary care service. Patient is not diabetic, preoperative hemoglobin A1c 5.5% 9. Discontinue [place], connect Cordis to continuous CVP monitoring 10. Continue chest tubes for another 24 hours 11. Continue Singh catheter for another 24 hours for strict accurate intake and output 12. Will add Flexeril for back spasms, patient has tolerated in the past 13. More recommendations to follow
[2022-06-18 08:11] LABS: Glucose,Whole Blood 171 mg/dL (70-110)
[2022-06-18] MEDS ORDERED: VITAMIN B COMPLEX PO SCH (09:00)
[2022-06-18] MEDS ORDERED: METOPROLOL TARTRATE 12.5 MG TAB PO SCH (09:00)
[2022-06-18] MEDS ORDERED: VIT C PO SCH (09:00)
[2022-06-18] MEDS ORDERED: PANTOPRAZOLE 40 MG/10 ML VIAL IVP SCH (09:00)
[2022-06-18] MEDS ORDERED: bisacodyL 10 MG SUPP RECTAL PRN (09:00)
[2022-06-18] MEDS: ASPIRIN 325 MG TAB PO SCH (09:09)
[2022-06-18 09:16] LABS: Glucose,Whole Blood 139 mg/dL (70-110)
--- NOTE | 2022-06-18 09:35 | P.CRDCN ---
History of Present Illness History of present illness: HISTORY OF PRESENTING ILLNESS Patient is pleasant 66-year-old female with history of coronary artery disease, paroxysmal atrial fibrillation, endometrial cancer, hypothyroidism, previous tob acco abuse who presented for elective CABG. She follows with Dr. Cunningham. He states over last few months she has been noticing increased dyspnea with mild exertion. She denies any lightheadedness or dizziness. She underwent CABG 06/17 with HERNANDEZ to LAD, SVG to OM and ligation of left atrial appendage. She had been doing fairly well overnight however went into A. fib with RVR this morning with heart rates in the 120s to 130s. She denies feeling any more short of breath. Tolerating Afib well with blood pressure stable. REVIEW OF SYSTEMS At the time of my exam: CONSTITUTIONAL: Denies fever or chills. CARDIOVASCULAR: +reproducible chest pain around incision, +chronic shortness of breath, no orthopnea, PND or palpitations. RESPIRATORY: Denies cough. GASTROINTESTINAL: Denies abdominal pain, diarrhea, constipation, nausea or vomiting. MUSCULOSKELETAL: Denies myalgias. NEUROLOGIC: Denies numbness, tingling or weakness. ENDOCRINE: Denies fatigue, weight change, polydipsia or polyurina. GENITOURINARY: Denies burning, hematuria or urgency with micturation. HEMATOLOGIC: Denies history of anemia or bleeding. PHYSICAL EXAMINATION Vital signs reviewed. CONSTITUTIONAL: No apparent distress. HEENT: Head is normocephalic. Pupils are equal, round. Sclerae anicteric. Mucous membranes of the mouth are moist. No JVD. No carotid bruit. CHEST EXAMINATION: Lungs are clear to auscultation. No chest wall tenderness is noted on palpation or with deep breathing. HEART EXAMINATION: Regular rate and rhythm. S1, S2 heard. No murmurs, gallops or rub. ABDOMEN: Soft, nontender. Positive bowel sounds. EXTREMITIES: 2+ peripheral pulses, no lower extremity edema and no calf tenderness. NEUROLOGIC EXAMINATION: Patient is awake, alert and oriented x3. ASSESSMENT 1. CAD status post CABG 06/17 with HERNANDEZ to LAD and SVG to OM 2. History of paroxysmal atrial fibrillation, currently A. fib with RVR 3. Hypothyroidism 4. Hypertension 5. Previous tobacco abuse 6. History of endometrial cancer PLAN Continue with IV amiodarone and monitor heart rates and blood pressures closely. Uptitrate metoprolol as able, currently 25 mg twice a day. Continue supportive care. Restart Eliquis when cleared by surgery. Past Medical History Past Medical History: Atrial Fibrillation, Coronary Artery Disease (CAD), Cancer, GERD/Reflux, Hyperlipidemia, Osteoarthritis (OA) Additional Past Medical History / Comment(s): chronic back pain,PVCs,SOB,hx Covid infection January 2022,uterine CA 2007-no chemo History of Any Multi-Drug Resistant Organisms: None Reported Past Surgical History: Section, Hysterectomy Past Anesthesia/Blood Transfusion Reactions: No Reported Reaction Additional Past Anesthesia/Blood Transfusion Reaction / Comment(s): no hx blood transfusion Past Psychological History: No Psychological Hx Reported Smoking Status: Former smoker Past Alcohol Use History: None Reported Additional Past Alcohol Use History / Comment(s): quit smoking 38 yrs ago Past Drug Use History: None Reported - Past Family History Brother(s) Family Medical History: Deep Vein Thrombosis (DVT), Pulmonary Embolus Father Family Medical History: Myocardial Infarction ([place]) Additional Family Medical History / Comment(s): [place] at age of 38,lived to Medications and Allergies [facility] Medications Medication Instructions Recorded Confirmed Type Apixaban [Eliquis] 5 mg PO BID 05/31/22 06/17/22 History Aspirin 324 mg PO DAILY 06/11/22 06/17/22 History Cholecalciferol [Vitamin D3 (10 125 mcg PO DAILY 06/11/22 06/17/22 History Mcg = 400 Iu)] Levothyroxine Sodium [Synthroid] 25 mcg PO QAM 06/11/22 06/17/22 History Vitamin B Complex W/ Vit C 1 dose PO DAILY 06/11/22 06/17/22 History Vitamin E (Dl,Tocopheryl Acet) 180 mg PO DAILY 06/11/22 06/17/22 History [Vitamin E (400 Iu = 180 mg)] Atorvastatin Calcium [Lipitor] 80 mg PO HS 06/14/22 06/17/22 History Metoprolol Succinate (ER) [Toprol 50 mg PO HS 06/14/22 06/17/22 History Xl] Potassium Gluconate [Potassium 99 mg PO DAILY 06/14/22 06/17/22 History Gluconate ER] Zinc Gluconate [Zinc] 50 mg PO DAILY 06/14/22 06/17/22 History Acetaminophen [Tylenol Extra 500 mg PO BID PRN 06/16/22 06/17/22 History Strength] Ibuprofen 800 mg PO Q8H PRN 06/16/22 06/17/22 History Allergies Allergy/AdvReac Type Severity Reaction Status Date / Time bacitracin Allergy blisters Verified 06/17/22 06:10 [From Neosporin ([id number])] neomycin Allergy blisters Verified 06/17/22 06:10 [From Neosporin ([id number])] nickel Allergy blisters Verified 06/17/22 06:10 polymyxin B Allergy blisters Verified 06/17/22 06:10 [From Neosporin ([id number])] Physical Exam Vitals: Vital Signs Temp Pulse Resp Pulse Ox FiO2 06/18/22 07:00 70 12 96 06/18/22 06:00 78 14 96 06/18/22 05:00 80 16 94 L 06/18/22 04:00 99.9 F H 83 15 97 06/18/22 03:00 85 15 97 06/18/22 02:00 80 19 97 06/18/22 01:00 79 14 97 06/18/22 00:09 79 15 98 06/18/22 00:00 100.0 F H 80 14 98 06/17/22 23:00 77 14 98 06/17/22 22:00 78 15 99 06/17/22 21:00 77 18 99 06/17/22 20:00 100.0 F H 71 18 96 06/17/22 19:30 74 14 97 06/17/22 19:22 40 06/17/22 19:21 74 06/17/22 19:08 84 06/17/22 19:00 75 22 97 06/17/22 18:30 81 9 L 98 06/17/22 18:00 82 22 99 06/17/22 17:30 79 18 100 06/17/22 17:10 82 22 100 06/17/22 17:00 74 26 H 100 06/17/22 16:50 84 20 100 06/17/22 16:40 88 9 L 100 06/17/22 16:30 76 14 100 06/17/22 16:20 78 9 L 100 06/17/22 16:10 79 21 100 06/17/22 16:06 76 06/17/22 16:00 98.1 F 75 14 100 40 06/17/22 15:50 76 30 H 100 06/17/22 15:49 76 06/17/22 15:42 40 06/17/22 15:40 70 18 100 06/17/22 15:30 76 18 100 06/17/22 15:20 70 14 100 06/17/22 15:10 73 15 100 06/17/22 15:00 73 14 100 06/17/22 14:50 72 14 100 06/17/22 14:40 76 14 100 06/17/22 14:30 76 30 H 100 06/17/22 14:27 40 06/17/22 14:20 79 30 H 100 06/17/22 14:10 80 14 100 06/17/22 14:00 81 8 L 100 06/17/22 13:50 95.9 F L 79 7 L 100 06/17/22 13:41 100 06/17/22 13:40 77 58 H 06/17/22 13:36 85 H Intake and Output 06/17/22 06/18/22 06/18/22 22:59 06:59 14:59 Intake Total 715.386 793.238 1.414 Output Total 979 680 Balance -263.614 113.238 1.414 Intake: IV 222 181 cardiac index 150 100 pressure bag 72 81 Intake, IV Titration 493.386 612.238 1.414 Amount ACETAMINOPHEN IV (For NPO 100 ) 1,000 mg In Empty Bag 1 bag @ 400 mls/hr IVPB Q6HR [facility] Rx#:[id number] Dexmedetomidine/0.9% NaCl 10.157 (Pmx) 400 mcg In Empty Bag 1 bag @ Titrate IV . Q0M [facility] Rx#:[id number] Insulin Regular 100 unit 10.715 12.238 1.414 In Sodium Chloride 0.9% 100 ml @ Per Protocol IV .Q0M [facility] Rx#:[id number] Lactated Ringers 1,000 ml 400 450 @ 20 mls/hr IV .Q24H [facility] Rx#:[id number] ceFAZolin 2 gm In Sodium 50 50 Chloride 0.9% 50 ml @ 100 mls/hr IVPB Q8HR [facility] Rx# :[id number] propofoL 1,000 mg In 22.514 Empty Bag 1 bag @ Titrate IV .Q0M [facility] Rx#: [id number] Output: Chest Tube Drainage 224 290 MS 119 120 MS/LP 105 170 Urine 755 390 Other: Voiding Method Indwelling Catheter Indwelling Catheter Weight 74.1 kg ABP, PAP, CO, CI - Last 8 Hours Arterial Blood Pressure 101/45 Arterial Blood Pressure 124/60 Arterial Blood Pressure 128/51 Arterial Blood Pressure 135/58 Arterial Blood Pressure 138/60 Arterial Blood Pressure 134/58 Pulmonary Artery Pressure 26/7 Pulmonary Artery Pressure 22/13 Pulmonary Artery Pressure 28/11 Pulmonary Artery Pressure 33/15 Pulmonary Artery Pressure 27/11 Pulmonary Artery Pressure 26/11 Cardiac Output 3.4 Cardiac Output 4.6 Cardiac Output 4.6 Cardiac Output 4.3 Cardiac Index 1.9 Cardiac Index 2.5 Cardiac Index 2.5 Cardiac Index 2.4 Results 06/18/22 04:00 06/18/22 04:00 Cardiac Enzymes 06/17/22 06/18/22 Range/Units 13:43 04:00 AST 54 H 53 H (14-36) U/L Coagulation 06/17/22 Range/Units 13:43 PT 12.0 (9.0-12.0) sec APTT 24.4 (22.0-30.0) sec CBC 06/17/22 06/17/22 06/17/22 Range/Units 13:43 16:05 18:51 WBC 13.4 H 14.5 H 14.6 H (3.8-10.6) k/uL RBC 3.57 L 3.57 L 3.47 L (3.80-5.40) m/uL Hgb 11.0 L 11.1 L 11.0 L (11.4-16.0) gm/dL Hct 31.9 L 31.8 L 31.2 L (34.0-46.0) % Plt Count 107 L 118 L 111 L (150-450) k/uL 06/18/22 Range/Units 04:00 WBC 17.0 H (3.8-10.6) k/uL RBC 3.37 L (3.80-5.40) m/uL Hgb 10.7 L (11.4-16.0) gm/dL Hct 30.1 L (34.0-46.0) % Plt Count 122 L (150-450) k/uL Comprehensive Metabolic Panel 06/17/22 06/18/22 Range/Units 13:43 04:00 Sodium 137 137 (137-145) mmol/L Potassium 4.4 4.4 (3.5-5.1) mmol/L Chloride 110 H 107 (98-107) mmol/L Carbon Dioxide 25 26 (22-30) mmol/L BUN 12 14 (7-17) mg/dL Creatinine 0.60 0.71 (0.52-1.04) mg/dL Glucose 134 H 122 H (74-99) mg/dL Calcium 8.3 L 8.0 L (8.4-10.2) mg/dL AST 54 H 53 H (14-36) U/L ALT 24 21 (4-34) U/L Alkaline Phosphatase 51 54 (38-126) U/L Total Protein 4.4 L 4.8 L (6.3-8.2) g/dL Albumin 2.7 L 3.1 L (3.5-5.0) g/dL Current Medications Generic Name Dose Route Start Last Admin Trade Name Freq PRN Reason Stop Dose Admin Acetaminophen 650 mg 06/18/22 06:43 Acetaminophen Tab 325 Mg Tab PO Q4HR PRN Fever and/ or Pain Hydrocodone Bitart/Acetaminophen 2 each 06/18/22 06:00 Hydrocodone/Apap 5-325mg 1 Each Tab PO Q4HR PRN Severe Pain (Scale 7 to 10) Hydrocodone Bitart/Acetaminophen 1 each 06/18/22 06:00 06/18/22 07:41 Hydrocodone/Apap 5-325mg 1 Each Tab PO 1 each Q4HR PRN Administration Moderate Pain (Scale 4 to 6) Albuterol/Ipratropium 3 ml 06/17/22 13:20 Ipratropium-Albuterol 3 Ml Neb INHALATION RT-Q2H PRN Shortness Of Breath Or Wheezing Albuterol/Ipratropium 3 ml 06/17/22 20:00 06/18/22 07:55 Ipratropium-Albuterol 3 Ml Neb INHALATION Not Given RT-QID [facility] Aspirin 325 mg 06/18/22 09:00 06/18/22 09:09 Aspirin 325 Mg Tab PO 325 mg DAILY [facility] Administration Atorvastatin Calcium 80 mg 06/17/22 21:00 06/17/22 22:23 Atorvastatin 80 Mg Tab PO 80 mg HS [facility] Administration Benzocaine/Menthol 1 each 06/17/22 13:20 Benzocaine/Menthol Lozeng 1 Each Lozenge MUCOUS MEM Q2H PRN Sore Throat Bisacodyl 10 mg 06/18/22 09:00 Bisacodyl 10 Mg Supp RECTAL DAILY PRN Constipation Cholecalciferol 125 mcg 06/18/22 09:00 06/18/22 07:40 Cholecalciferol 125 Mcg (5000 Iu) Tablet PO 125 mcg DAILY [facility] Administration Clopidogrel Bisulfate 75 mg 06/18/22 09:00 06/18/22 07:40 Clopidogrel 75 Mg Tab PO 75 mg DAILY [facility] Administration Cyclobenzaprine HCl 10 mg 06/18/22 07:25 06/18/22 07:47 Cyclobenzaprine 10 Mg Tab PO 10 mg BID PRN Administration Muscle Spasm Dextrose/Water 25 ml 06/17/22 13:20 Dextrose 50% Syringe 50 Ml IVP PER PROTOCOL PRN Hypoglycemia Protocol Dextrose/Water 50 ml 06/17/22 13:20 Dextrose 50% Syringe 50 Ml IVP PER PROTOCOL PRN Hypoglycemia Protocol Heparin Sodium (Porcine) 5,000 unit 06/17/22 16:00 06/18/22 07:40 Heparin Sodium,Porcine/Pf 5,000 Unit/0.5 Ml Syringe SQ 5,000 unit Q8HR [facility] Administration Amiodarone HCl 150 mg/ 103 mls @ 618 mls/hr 06/17/22 13:20 06/18/22 08:00 Dextrose/Water IV 618 mls/hr .Q10M PRN Administration A.FIB/FLUTTER Protocol Amiodarone HCl 360 mg/ 207.2 mls @ 34.533 mls/hr 06/17/22 13:20 06/18/22 09:08 Dextrose/Water IV 1 mg/min .Q6H PRN 34.533 mls/hr A.FIB/FLUTTER Administration Protocol 1 MG/MIN Amiodarone HCl 450 mg/ 250 mls @ 16.667 mls/hr 06/17/22 13:20 Dextrose/Water IV .Q15H PRN A.FIB/FLUTTER Protocol 0.5 MG/MIN Albumin Human 250 ml/ IV 250 mls @ 250 mls/hr 06/17/22 13:20 06/18/22 09:10 Solution IVPB 06/19/22 13:21 250 mls/hr Q1HR PRN Administration For Volume Protocol Lactated Ringer's 1,000 mls @ 20 mls/hr 06/17/22 13:20 06/17/22 14:00 Lactated Ringers IV 50 mls/hr .Q24H [facility] Administration Calcium Gluconate/Sodium 100 mls @ 100 mls/hr 06/17/22 13:20 Chloride 2 gm/ IV Solution IVPB 07/17/22 13:21 ONCE PRN Ionized Calcium less than 4.4 Insulin Human Regular 100 unit 101 mls @ 0 mls/hr 06/17/22 13:20 06/18/22 08:12 / Sodium Chloride IV 2 unit/hr .Q0M [facility] 2.02 mls/hr Titration Protocol Per Protocol Ketorolac Tromethamine 15 mg 06/17/22 18:00 06/18/22 06:22 Ketorolac 15 Mg/Ml 1 Ml Vial IVP 15 mg Q6HR [facility] Administration Levothyroxine Sodium 25 mcg 06/18/22 06:30 06/18/22 06:22 Levothyroxine 25 Mcg Tab PO 25 mcg 0630 [facility] Administration Magnesium Hydroxide 2,400 mg 06/18/22 09:00 Magnesium Hydroxide 2,400 Mg/10 Ml Cup PO BID PRN Constipation Metoclopramide HCl 10 mg 06/17/22 13:20 Metoclopramide 5 Mg/Ml 2 Ml Vial IVP Q4H PRN Nausea And Vomiting Metoprolol Tartrate 25 mg 06/18/22 09:00 06/18/22 08:00 Metoprolol Tartrate 25 Mg Tab PO 12.5 mg BID [facility] Administration Miscellaneous Information 1 each 06/17/22 13:20 Potassium Replacement Protocol 1 Each Misc MISCELLANE DAILY PRN Per Protocol Protocol Miscellaneous Information 1 each 06/17/22 13:20 Magnesium Replacement Protocol 1 Each Misc MISCELLANE DAILY PRN Per Protocol Protocol Ondansetron HCl 4 mg 06/17/22 13:20 Ondansetron 4 Mg/2 Ml Vial IVP Q6HR PRN Nausea And Vomiting Pantoprazole Sodium 40 mg 06/19/22 07:30 Pantoprazole 40 Mg Tablet PO [id number] [facility] Senna/Docusate Sodium 2 each 06/18/22 21:00 Sennosides-Docusate Sodium 1 Each Tab PO HS [facility] Sodium Chloride 10 ml 06/17/22 21:00 06/18/22 08:57 Sodium Chloride 0.9% Flush 10 Ml Syringe IV Not Given BID COUNTS INCLUDE 234 BEDS AT [facility] Vitamin E 400 unit 06/18/22 09:00 06/18/22 07:41 Vitamin E (Dl,Tocopheryl Acet) 400 Unit (180 Mg) Cap PO 400 unit DAILY [facility] Administration Zinc Sulfate 220 mg 06/18/22 09:00 06/18/22 07:40 Zinc Sulfate 220 Mg Cap PO 220 mg DAILY [facility] Administration Intake and Output 06/17/22 06/18/22 06/18/22 22:59 06:59 14:59 Intake Total 715.386 793.238 1.414 Output Total 979 680 Balance -263.614 113.238 1.414 Intake: IV 222 181 cardiac index 150 100 pressure bag 72 81 Intake, IV Titration 493.386 612.238 1.414 Amount ACETAMINOPHEN IV (For NPO 100 ) 1,000 mg In Empty Bag 1 bag @ 400 mls/hr IVPB Q6HR [facility] Rx#:[id number] Dexmedetomidine/0.9% NaCl 10.157 (Pmx) 400 mcg In Empty Bag 1 bag @ Titrate IV . Q0M [facility] Rx#:[id number] Insulin Regular 100 unit 10.715 12.238 1.414 In Sodium Chloride 0.9% 100 ml @ Per Protocol IV .Q0M [facility] Rx#:[id number] Lactated Ringers 1,000 ml 400 450 @ 20 mls/hr IV .Q24H [facility] Rx#:[id number] ceFAZolin 2 gm In Sodium 50 50 Chloride 0.9% 50 ml @ 100 mls/hr IVPB Q8HR [facility] Rx# :[id number] propofoL 1,000 mg In 22.514 Empty Bag 1 bag @ Titrate IV .Q0M [facility] Rx#: [id number] Output: Chest Tube Drainage 224 290 MS 119 120 MS/LP 105 170 Urine 755 390 Other: Voiding Method Indwelling Catheter Indwelling Catheter Weight 74.1 kg 06/18/22 04:00 06/18/22 04:00
[2022-06-18 10:14] LABS: Glucose,Whole Blood 161 mg/dL (70-110)
[2022-06-18 10:46] VITALS: BMI 33.0
[2022-06-18 11:59] LABS: Glucose,Whole Blood 131 mg/dL (70-110)
[2022-06-18] MEDS ORDERED: DEXTROSE 50% SYRINGE 50 ML IVP PRN ×2 (13:23)
[2022-06-18] MEDS: LACTATED RINGERS 1,000 ML IV SCH (13:44)
--- NOTE | 2022-06-18 14:01 | P.PN ---
Subjective Progress Note Date: 06/18/22 Principal diagnosis: coronary artery bypass grafting 2 vessels, left internal mammary artery to the left anterior descending artery, reverse saphenous vein graft to the obtuse gama inal artery, endoscopic harvesting of the right greater saphenous vein, ligation of the left atrial appendage using a 35 mm AtriClip, pulmonary vein isolation, epi-aortic ultrasound, intraoperative transesophageal echocardiogram Reevaluated today on 06/18/22, patient remains in the ICU, patient was extubated yesterday at 2022, she tolerated the extubation quite well. Patient is relatively asymptomatic. She is on 2.5 L nasal cannula, O2 sats is 98%. Patient is not requiring any pressors today, however she is on amiodarone drip for atrial fibrillation, chest x-ray showed mostly postoperative changes, expected. No acute process is noted. Her hemodynamics showed a cardiac output of 3.7 and a cardiac index of 2.0. PA pressure is 33/16, CVP is 13. Patient is on amiodarone drip as noted earlier she is also on insulin at 2 units per hour. Overall the patient is doing well. WBC count is 17 hemoglobin is 10.7. Electrolytes and basic metabolic profile are normal. Objective - Vital Signs Vital signs: Vital Signs Temp 98.6 F 06/18/22 12:00 Pulse 109 H 06/18/22 13:00 Resp 11 L 06/18/22 13:00 BP 81/52 06/18/22 11:00 Pulse Ox 98 06/18/22 13:00 FiO2 40 06/17/22 19:22 Intake & Output 06/17/22 06/18/22 06/18/22 18:59 06:59 18:59 Intake Total 936.837 1268.130 446.414 Output Total 3505 919 240 Balance -2763.506 139.130 206.414 Weight 74.1 kg 74.1 kg Intake: IV 366 278 85 cardiac index 110 170 40 pressure bag 54 108 45 Intake, IV Titration 375.494 780.130 241.414 Amount ACETAMINOPHEN IV (For NPO 100 ) 1,000 mg In Empty Bag 1 bag @ 400 mls/hr IVPB Q6HR [facility] Rx#:[id number] Dexmedetomidine/0.9% NaCl 10.157 (Pmx) 400 mcg In Empty Bag 1 bag @ Titrate IV . Q0M [facility] Rx#:[id number] Insulin Regular 100 unit 2.98 19.973 1.414 In Sodium Chloride 0.9% 100 ml @ Per Protocol IV .Q0M [facility] Rx#:[id number] Lactated Ringers 1,000 ml 300 600 190 @ 20 mls/hr IV .Q24H [facility] Rx#:[id number] ceFAZolin 2 gm In Sodium 50 50 50 Chloride 0.9% 50 ml @ 100 mls/hr IVPB Q8HR [facility] Rx# :[id number] propofoL 1,000 mg In 22.514 Empty Bag 1 bag @ Titrate IV .Q0M [facility] Rx#: [id number] Oral 120 Output: Chest Tube Drainage 225 384 140 MS 95 164 40 MS/LP 130 220 100 Urine 2080 535 100 Estimated Blood Loss 1200 Other: Voiding Method Indwelling Catheter Indwelling Catheter Indwelling Catheter ABP, PAP, CO, CI - Last Documented Arterial Blood Pressure 108/48 Pulmonary Artery Pressure 32/15 Cardiac Output 4.5 Cardiac Index 2.5 - Exam Physical Exam: Revealed 66-year-old female in no distress. On 2.5 L nasal cannula. Head: Atraumatic, normocephalic. HEENT:[Neck is supple.] [No neck masses.] [No thyromegaly.] [No JVD.] Right IJ Cordis is noted, and PA catheter is also noted Chest: [Clear throughout, no crackles, no rhonchi, no wheezes.] Mediastinal, left, right pleural chest tube was noted. Cardiac Exam: [Normal S1 and S2, no S3 gallop, no murmur.] Abdomen: [Soft, nontender, no megaly, no rebound, no guarding, normal bowel sounds.] Extremities: [No clubbing, no edema, no cyanosis.] [3 arterial line is still in place. Neurological Exam: [No focal neurologic deficit.] Alert and oriented 3. Psychiatric: Normal mood affect and normal mental status examination. Skin: No rashes - Labs CBC & Chem 7: 06/18/22 04:00 06/18/22 04:00 Labs: Abnormal Lab Results - Last 24 Hours (Table) 06/11/22 06/17/22 06/17/22 Range/Units 09:08 13:43 13:43 WBC 13.4 H (3.8-10.6) k/uL RBC 3.57 L (3.80-5.40) m/uL Hgb 11.0 L (11.4-16.0) gm/dL Hct 31.9 L (34.0-46.0) % Plt Count 107 L (150-450) k/uL Neutrophils # 11.6 H (1.3-7.7) k/uL Lymphocytes # (1.0-4.8) k/uL ABG pO2 (83-108) mmHg ABG HCO3 (21-25) mmol/L ABG Total CO2 (19-24) mmol/L ABG O2 Saturation (94-97) % Chloride 110 H (98-107) mmol/L Glucose 134 H (74-99) mg/dL POC Glucose (mg/dL) (70-110) mg/dL Calcium 8.3 L (8.4-10.2) mg/dL Magnesium 2.7 H (1.6-2.3) mg/dL AST 54 H (14-36) U/L Total Protein 4.4 L (6.3-8.2) g/dL Albumin 2.7 L (3.5-5.0) g/dL Crossmatch See Detail 06/17/22 06/17/22 06/17/22 Range/Units 14:19 14:58 16:04 WBC (3.8-10.6) k/uL RBC (3.80-5.40) m/uL Hgb (11.4-16.0) gm/dL Hct (34.0-46.0) % Plt Count (150-450) k/uL Neutrophils # (1.3-7.7) k/uL Lymphocytes # (1.0-4.8) k/uL ABG pO2 >400 H (83-108) mmHg ABG HCO3 26 H (21-25) mmol/L ABG Total CO2 27 H (19-24) mmol/L ABG O2 Saturation 98.8 H (94-97) % Chloride (98-107) mmol/L Glucose (74-99) mg/dL POC Glucose (mg/dL) 150 H 138 H (70-110) mg/dL Calcium (8.4-10.2) mg/dL Magnesium (1.6-2.3) mg/dL AST (14-36) U/L Total Protein (6.3-8.2) g/dL Albumin (3.5-5.0) g/dL Crossmatch 06/17/22 06/17/22 06/17/22 Range/Units 16:05 17:10 18:15 WBC 14.5 H (3.8-10.6) k/uL RBC 3.57 L (3.80-5.40) m/uL Hgb 11.1 L (11.4-16.0) gm/dL Hct 31.8 L (34.0-46.0) % Plt Count 118 L (150-450) k/uL Neutrophils # 12.5 H (1.3-7.7) k/uL Lymphocytes # (1.0-4.8) k/uL ABG pO2 (83-108) mmHg ABG HCO3 (21-25) mmol/L ABG Total CO2 (19-24) mmol/L ABG O2 Saturation (94-97) % Chloride (98-107) mmol/L Glucose (74-99) mg/dL POC Glucose (mg/dL) 161 H 144 H (70-110) mg/dL Calcium (8.4-10.2) mg/dL Magnesium (1.6-2.3) mg/dL AST (14-36) U/L Total Protein (6.3-8.2) g/dL Albumin (3.5-5.0) g/dL Crossmatch 06/17/22 06/17/22 06/17/22 Range/Units 18:51 18:54 19:57 WBC 14.6 H (3.8-10.6) k/uL RBC 3.47 L (3.80-5.40) m/uL Hgb 11.0 L (11.4-16.0) gm/dL Hct 31.2 L (34.0-46.0) % Plt Count 111 L (150-450) k/uL Neutrophils # 13.2 H (1.3-7.7) k/uL Lymphocytes # 0.7 L (1.0-4.8) k/uL ABG pO2 (83-108) mmHg ABG HCO3 (21-25) mmol/L ABG Total CO2 (19-24) mmol/L ABG O2 Saturation (94-97) % Chloride (98-107) mmol/L Glucose (74-99) mg/dL POC Glucose (mg/dL) 136 H 138 H (70-110) mg/dL Calcium (8.4-10.2) mg/dL Magnesium (1.6-2.3) mg/dL AST (14-36) U/L Total Protein (6.3-8.2) g/dL Albumin (3.5-5.0) g/dL Crossmatch 06/17/22 06/17/22 06/17/22 Range/Units 20:10 20:57 22:06 WBC (3.8-10.6) k/uL RBC (3.80-5.40) m/uL Hgb (11.4-16.0) gm/dL Hct (34.0-46.0) % Plt Count (150-450) k/uL Neutrophils # (1.3-7.7) k/uL Lymphocytes # (1.0-4.8) k/uL ABG pO2 118 H (83-108) mmHg ABG HCO3 (21-25) mmol/L ABG Total CO2 26 H (19-24) mmol/L ABG O2 Saturation 99.0 H (94-97) % Chloride (98-107) mmol/L Glucose (74-99) mg/dL POC Glucose (mg/dL) 142 H 152 H (70-110) mg/dL Calcium (8.4-10.2) mg/dL Magnesium (1.6-2.3) mg/dL AST (14-36) U/L Total Protein (6.3-8.2) g/dL Albumin (3.5-5.0) g/dL Crossmatch 06/17/22 06/18/22 06/18/22 Range/Units 22:58 00:02 01:15 WBC (3.8-10.6) k/uL RBC (3.80-5.40) m/uL Hgb (11.4-16.0) gm/dL Hct (34.0-46.0) % Plt Count (150-450) k/uL Neutrophils # (1.3-7.7) k/uL Lymphocytes # (1.0-4.8) k/uL ABG pO2 (83-108) mmHg ABG HCO3 (21-25) mmol/L ABG Total CO2 (19-24) mmol/L ABG O2 Saturation (94-97) % Chloride (98-107) mmol/L Glucose (74-99) mg/dL POC Glucose (mg/dL) 142 H 130 H 127 H (70-110) mg/dL Calcium (8.4-10.2) mg/dL Magnesium (1.6-2.3) mg/dL AST (14-36) U/L Total Protein (6.3-8.2) g/dL Albumin (3.5-5.0) g/dL Crossmatch 06/18/22 06/18/22 06/18/22 Range/Units 02:10 03:08 03:53 WBC (3.8-10.6) k/uL RBC (3.80-5.40) m/uL Hgb (11.4-16.0) gm/dL Hct (34.0-46.0) % Plt Count (150-450) k/uL Neutrophils # (1.3-7.7) k/uL Lymphocytes # (1.0-4.8) k/uL ABG pO2 (83-108) mmHg ABG HCO3 (21-25) mmol/L ABG Total CO2 (19-24) mmol/L ABG O2 Saturation (94-97) % Chloride (98-107) mmol/L Glucose (74-99) mg/dL POC Glucose (mg/dL) 122 H 114 H 128 H (70-110) mg/dL Calcium (8.4-10.2) mg/dL Magnesium (1.6-2.3) mg/dL AST (14-36) U/L Total Protein (6.3-8.2) g/dL Albumin (3.5-5.0) g/dL Crossmatch 06/18/22 06/18/22 06/18/22 Range/Units 04:00 04:00 05:00 WBC 17.0 H (3.8-10.6) k/uL RBC 3.37 L (3.80-5.40) m/uL Hgb 10.7 L (11.4-16.0) gm/dL Hct 30.1 L (34.0-46.0) % Plt Count 122 L (150-450) k/uL Neutrophils # 14.4 H (1.3-7.7) k/uL Lymphocytes # (1.0-4.8) k/uL ABG pO2 (83-108) mmHg ABG HCO3 (21-25) mmol/L ABG Total CO2 (19-24) mmol/L ABG O2 Saturation (94-97) % Chloride (98-107) mmol/L Glucose 122 H (74-99) mg/dL POC Glucose (mg/dL) 135 H (70-110) mg/dL Calcium 8.0 L (8.4-10.2) mg/dL Magnesium (1.6-2.3) mg/dL AST 53 H (14-36) U/L Total Protein 4.8 L (6.3-8.2) g/dL Albumin 3.1 L (3.5-5.0) g/dL Crossmatch 06/18/22 06/18/22 06/18/22 Range/Units 06:47 08:09 09:14 WBC (3.8-10.6) k/uL RBC (3.80-5.40) m/uL Hgb (11.4-16.0) gm/dL Hct (34.0-46.0) % Plt Count (150-450) k/uL Neutrophils # (1.3-7.7) k/uL Lymphocytes # (1.0-4.8) k/uL ABG pO2 (83-108) mmHg ABG HCO3 (21-25) mmol/L ABG Total CO2 (19-24) mmol/L ABG O2 Saturation (94-97) % Chloride (98-107) mmol/L Glucose (74-99) mg/dL POC Glucose (mg/dL) 147 H 171 H 139 H (70-110) mg/dL Calcium (8.4-10.2) mg/dL Magnesium (1.6-2.3) mg/dL AST (14-36) U/L Total Protein (6.3-8.2) g/dL Albumin (3.5-5.0) g/dL Crossmatch 06/18/22 06/18/22 Range/Units 10:13 11:58 WBC (3.8-10.6) k/uL RBC (3.80-5.40) m/uL Hgb (11.4-16.0) gm/dL Hct (34.0-46.0) % Plt Count (150-450) k/uL Neutrophils # (1.3-7.7) k/uL Lymphocytes # (1.0-4.8) k/uL ABG pO2 (83-108) mmHg ABG HCO3 (21-25) mmol/L ABG Total CO2 (19-24) mmol/L ABG O2 Saturation (94-97) % Chloride (98-107) mmol/L Glucose (74-99) mg/dL POC Glucose (mg/dL) 161 H 131 H (70-110) mg/dL Calcium (8.4-10.2) mg/dL Magnesium (1.6-2.3) mg/dL AST (14-36) U/L Total Protein (6.3-8.2) g/dL Albumin (3.5-5.0) g/dL Crossmatch Assessment and Plan Assessment: Impression: Status post CABG, postoperative day #1 HERNANDEZ to LAD and SVG to OM Paroxysmal atrial fibrillation History of hypertension Ex-smoker History of endometrial cancer Dyslipidemia History of hypothyroidism Recommendation: Continue aspirin and Plavix beta blockers Continue amiodarone and eventually switched to oral Ambulate and continue incentive spirometry Continue GI and DVT prophylaxis Continue insulin and pain control management Discontinue unnecessary lines and catheters Possible removal of chest tubes in the next 24 hours We will continue to follow. Time with Patient: Less than 30
[2022-06-18] MEDS: ACETAMINOPHEN TAB 325 MG TAB PO PRN (14:27)
[2022-06-18 16:33] LABS: Glucose,Whole Blood 146 mg/dL (70-110)
[2022-06-18] MEDS: INSULIN ASPART (NovoLOG) 100 UNIT/ML VIAL SQ SCH ×2 (16:33→20:27)
[2022-06-18 20:26] LABS: Glucose,Whole Blood 124 mg/dL (70-110)
[2022-06-18] MEDS: ATORVASTATIN 80 MG TAB PO SCH (20:30)
[2022-06-18] MEDS: SENNOSIDES-DOCUSATE SODIUM 1 EACH TAB PO SCH (20:31)
--- NOTE | 2022-06-18 21:43 | P.CONS ---
History of Present Illness - Reason for Consult Consult date: 06/18/22 Medical management - Chief Complaint Status post coronary artery bypass graft - History of Present Illness Patient is a 66-year-old female with a known history of atrial fibrillation on anticoagulation with Eliquis, coronary artery disease, hyperlipidemia, GERD, chronic back pain and history of uterine cancer status post hysterectomy and prior history of smoking was admitted to the hospital for elective coronary artery bypass graft. Patient states that she developed chest discomfort about 2 to 3 months ago with minimal activity and underwent stress test which showed reversible ischemia and subsequent cardiac catheterization showed multivessel coronary disease. Patient was seen by CT surgery and recommends CABG. 2D echocardiogram showed ejection fraction 55 to 60%. No pulmonary hypertension. Patient was admitted to the hospital today for elective coronary revascularization procedure. Patient was transferred to ICU postoperatively and was intubated preoperatively. Patient is currently extubated and is sitting State. Complains of soreness in the surgical site. No complaints of chest pain. No nausea vomiting abdominal pain or diarrhea. No cough or sputum production Chest x-ray this morning showed postoperative changes of CABG. Laboratory test showed WBC 17.0 hemoglobin 10.7 and platelets 122 Sodium 137 potassium 4.4 chloride 107 bicarb is 26 BUN 14 and creatinine 0.7 and blood sugar 122 Calcium 8.0 AST 53 ALT 21 alk phos 54 and albumin 3.1 Review of Systems Constitutional: Patient denies any fever or chills . no Generalized weakness. Abdomen: Patient denied any nausea or vomiting or abd. pain Cardiovascular: Patient denies any chest pain or short of breath no palpitations. Respiratory: patient denied any cough . no sputum production. No shortness of breath Neurologic: Patient denied any numbness or tingling headache. Musculoskeletal: Patient denies any complaints of joint swelling or deformity. Skin: Negative Psychiatric: Negative Endocrine: No heat or cold intolerance. No recent weight gain. Genitourinary: No dysuria or hematuria. All other 14 point ROS negative except the above Past Medical History Past Medical History: Atrial Fibrillation, Coronary Artery Disease (CAD), Cancer, GERD/Reflux, Hyperlipidemia, Osteoarthritis (OA) Additional Past Medical History / Comment(s): chronic back pain,PVCs,SOB,hx Covid infection January 2022,uterine CA 2007-no chemo History of Any Multi-Drug Resistant Organisms: None Reported Past Surgical History: Section, Hysterectomy Past Anesthesia/Blood Transfusion Reactions: No Reported Reaction Additional Past Anesthesia/Blood Transfusion Reaction / Comm: no hx blood transfusion Past Psychological History: No Psychological Hx Reported Smoking Status: Former smoker Past Alcohol Use History: None Reported Additional Past Alcohol Use History / Comment(s): quit smoking 38 yrs ago Past Drug Use History: None Reported - Past Family History Brother(s) Family Medical History: Deep Vein Thrombosis (DVT), Pulmonary Embolus Father Family Medical History: Myocardial Infarction ([place]) Additional Family Medical History / Comment(s): [place] at age of 38,lived to Medications and Allergies Home Medications Medication Instructions Recorded Confirmed Type Apixaban [Eliquis] 5 mg PO BID 05/31/22 06/17/22 History Aspirin 324 mg PO DAILY 06/11/22 06/17/22 History Cholecalciferol [Vitamin D3 (10 125 mcg PO DAILY 06/11/22 06/17/22 History Mcg = 400 Iu)] Levothyroxine Sodium [Synthroid] 25 mcg PO QAM 06/11/22 06/17/22 History Vitamin B Complex W/ Vit C 1 dose PO DAILY 06/11/22 06/17/22 History Vitamin E (Dl,Tocopheryl Acet) 180 mg PO DAILY 06/11/22 06/17/22 History [Vitamin E (400 Iu = 180 mg)] Atorvastatin Calcium [Lipitor] 80 mg PO HS 06/14/22 06/17/22 History Metoprolol Succinate (ER) [Toprol 50 mg PO HS 06/14/22 06/17/22 History Xl] Potassium Gluconate [Potassium 99 mg PO DAILY 06/14/22 06/17/22 History Gluconate ER] Zinc Gluconate [Zinc] 50 mg PO DAILY 06/14/22 06/17/22 History Acetaminophen [Tylenol Extra 500 mg PO BID PRN 06/16/22 06/17/22 History Strength] Ibuprofen 800 mg PO Q8H PRN 06/16/22 06/17/22 History Allergies Allergy/AdvReac Type Severity Reaction Status Date / Time bacitracin Allergy blisters Verified 06/17/22 06:10 [From Neosporin ([id number])] neomycin Allergy blisters Verified 06/17/22 06:10 [From Neosporin ([id number])] nickel Allergy blisters Verified 06/17/22 06:10 polymyxin B Allergy blisters Verified 06/17/22 06:10 [From Neosporin ([id number])] Physical Exam Vitals: Vital Signs Temp Pulse Resp Pulse Ox FiO2 06/18/22 10:00 80 15 93 L 06/18/22 09:00 116 H 12 97 06/18/22 08:00 98.8 F 138 H 14 90 L 06/18/22 07:00 70 12 96 06/18/22 06:00 78 14 96 06/18/22 05:00 80 16 94 L 06/18/22 04:00 99.9 F H 83 15 97 06/18/22 03:00 85 15 97 06/18/22 02:00 80 19 97 06/18/22 01:00 79 14 97 06/18/22 00:09 79 15 98 06/18/22 00:00 100.0 F H 80 14 98 06/17/22 23:00 77 14 98 06/17/22 22:00 78 15 99 06/17/22 21:00 77 18 99 06/17/22 20:00 100.0 F H 71 18 96 06/17/22 19:30 74 14 97 06/17/22 19:22 40 06/17/22 19:21 74 06/17/22 19:08 84 06/17/22 19:00 75 22 97 06/17/22 18:30 81 9 L 98 06/17/22 18:00 82 22 99 06/17/22 17:30 79 18 100 06/17/22 17:10 82 22 100 06/17/22 17:00 74 26 H 100 06/17/22 16:50 84 20 100 06/17/22 16:40 88 9 L 100 06/17/22 16:30 76 14 100 06/17/22 16:20 78 9 L 100 06/17/22 16:10 79 21 100 06/17/22 16:06 76 06/17/22 16:00 98.1 F 75 14 100 40 06/17/22 15:50 76 30 H 100 06/17/22 15:49 76 06/17/22 15:42 40 06/17/22 15:40 70 18 100 06/17/22 15:30 76 18 100 06/17/22 15:20 70 14 100 06/17/22 15:10 73 15 100 06/17/22 15:00 73 14 100 06/17/22 14:50 72 14 100 06/17/22 14:40 76 14 100 06/17/22 14:30 76 30 H 100 06/17/22 14:27 40 06/17/22 14:20 79 30 H 100 06/17/22 14:10 80 14 100 06/17/22 14:00 81 8 L 100 06/17/22 13:50 95.9 F L 79 7 L 100 06/17/22 13:41 100 06/17/22 13:40 77 58 H 06/17/22 13:36 85 H Intake and Output 06/17/22 06/18/22 06/18/22 22:59 06:59 14:59 Intake Total 715.386 793.238 338.414 Output Total 979 680 60 Balance -263.614 113.238 278.414 Intake: IV 222 181 47 cardiac index 150 100 20 pressure bag 72 81 27 Intake, IV Titration 493.386 612.238 171.414 Amount ACETAMINOPHEN IV (For NPO 100 ) 1,000 mg In Empty Bag 1 bag @ 400 mls/hr IVPB Q6HR [facility] Rx#:[id number] Dexmedetomidine/0.9% NaCl 10.157 (Pmx) 400 mcg In Empty Bag 1 bag @ Titrate IV . Q0M [facility] Rx#:[id number] Insulin Regular 100 unit 10.715 12.238 1.414 In Sodium Chloride 0.9% 100 ml @ Per Protocol IV .Q0M [facility] Rx#:[id number] Lactated Ringers 1,000 ml 400 450 120 @ 20 mls/hr IV .Q24H [facility] Rx#:[id number] ceFAZolin 2 gm In Sodium 50 50 50 Chloride 0.9% 50 ml @ 100 mls/hr IVPB Q8HR [facility] Rx# :[id number] propofoL 1,000 mg In 22.514 Empty Bag 1 bag @ Titrate IV .Q0M [facility] Rx#: [id number] Oral 120 Output: Chest Tube Drainage 224 290 MS 119 120 MS/LP 105 170 Urine 755 390 60 Other: Voiding Method Indwelling Catheter Indwelling Catheter Indwelling Catheter Weight 74.1 kg 74.1 kg ABP, PAP, CO, CI - Last 8 Hours Arterial Blood Pressure 84/52 Arterial Blood Pressure 106/62 Arterial Blood Pressure 112/59 Arterial Blood Pressure 101/45 Arterial Blood Pressure 124/60 Arterial Blood Pressure 128/51 Arterial Blood Pressure 135/58 Arterial Blood Pressure 138/60 Pulmonary Artery Pressure 30/16 Pulmonary Artery Pressure 28/14 Pulmonary Artery Pressure 30/15 Pulmonary Artery Pressure 26/7 Pulmonary Artery Pressure 22/13 Pulmonary Artery Pressure 28/11 Pulmonary Artery Pressure 33/15 Pulmonary Artery Pressure 27/11 Cardiac Output 3.7 Cardiac Output 3.7 Cardiac Output 3.4 Cardiac Output 3.4 Cardiac Output 4.6 Cardiac Output 4.6 Cardiac Index 2 Cardiac Index 2 Cardiac Index 1.9 Cardiac Index 1.9 Cardiac Index 2.5 Cardiac Index 2.5 PHYSICAL EXAMINATION: Patient is lying in the bed comfortably, no acute distress, awake alert and oriented.. HEENT: Normocephalic. Neck is supple. Pupils reactive. Nostrils clear. Oral cavity is moist. Neck reveals no JVD, carotid bruits, or thyromegaly. CHEST EXAMINATION: Trachea is central. Symmetrical expansion. Lung gardiner clear to auscultation and percussion. Sternal incision site is bandaged. Mediastinal and thoracic chest tubes in place. CARDIAC: Normal S1, S2 with no gallops. No murmurs ABDOMEN: Soft. Bowel sounds present. Nontender. No organomegaly. No abdominal bruits. Extremities: reveal no edema. No clubbing or cyanosis Neurologically awake, alert, oriented x3 with well-coordinated movements. No focal deficits noted Skin: No rash or skin lesions. Psychiatric: Coperative. Nonsuicidal, Musculoskeletal: No joint swelling or deformity. Normal range of motion. Results CBC & Chem 7: 06/18/22 04:00 06/18/22 04:00 Labs: Abnormal Lab Results - Last 24 Hours (Table) 06/11/22 06/17/22 06/17/22 Range/Units 09:08 08:46 09:56 WBC (3.8-10.6) k/uL RBC (3.80-5.40) m/uL Hgb (11.4-16.0) gm/dL Hct (34.0-46.0) % Plt Count (150-450) k/uL Neutrophils # (1.3-7.7) k/uL Lymphocytes # (1.0-4.8) k/uL ABG pH 7.47 H (7.35-7.45) ABG pCO2 34 L (35-45) mmHg ABG pO2 >420 H 184 H (83-108) mmHg ABG HCO3 (21-25) mmol/L ABG Total CO2 26 H 26 H (19-24) mmol/L ABG O2 Saturation 99.9 H 99.2 H (94-97) % ABG Hematocrit (34.0-46.0) % ABG Potassium (3.4-4.5) mmol/L ABG Ionized Calcium (4.5-5.3) mg/dL ABG Glucose 110 H (75-99) mg/dL Hemoglobin 10.9 L (11.4-16.0) gm/dL Chloride (98-107) mmol/L Glucose (74-99) mg/dL POC Glucose (mg/dL) (70-110) mg/dL Calcium (8.4-10.2) mg/dL Magnesium (1.6-2.3) mg/dL AST (14-36) U/L Total Protein (6.3-8.2) g/dL Albumin (3.5-5.0) g/dL Arterial Blood Potassium (3.4-4.5) mmol/L Arterial Blood Glucose 110 H (75-99) mg/dL Crossmatch See Detail 06/17/22 06/17/22 06/17/22 Range/Units 10:38 11:06 11:43 WBC (3.8-10.6) k/uL RBC (3.80-5.40) m/uL Hgb (11.4-16.0) gm/dL Hct (34.0-46.0) % Plt Count (150-450) k/uL Neutrophils # (1.3-7.7) k/uL Lymphocytes # (1.0-4.8) k/uL ABG pH 7.46 H (7.35-7.45) ABG pCO2 33 L (35-45) mmHg ABG pO2 >420 H 249 H 382 H (83-108) mmHg ABG HCO3 26 H (21-25) mmol/L ABG Total CO2 26 H 27 H (19-24) mmol/L ABG O2 Saturation 100.0 H 99.7 H 99.7 H (94-97) % ABG Hematocrit 24 L 23 L 24 L (34.0-46.0) % ABG Potassium 5.0 H 4.9 H (3.4-4.5) mmol/L ABG Ionized Calcium 3.9 L 4.0 L 4.1 L (4.5-5.3) mg/dL ABG Glucose 123 H 136 H 144 H (75-99) mg/dL Hemoglobin 7.8 L 7.3 L 7.9 L (11.4-16.0) gm/dL Chloride (98-107) mmol/L Glucose (74-99) mg/dL POC Glucose (mg/dL) (70-110) mg/dL Calcium (8.4-10.2) mg/dL Magnesium (1.6-2.3) mg/dL AST (14-36) U/L Total Protein (6.3-8.2) g/dL Albumin (3.5-5.0) g/dL Arterial Blood Potassium 5.0 H 4.9 H (3.4-4.5) mmol/L Arterial Blood Glucose 123 H 136 H 144 H (75-99) mg/dL Crossmatch 06/17/22 06/17/22 06/17/22 Range/Units 12:48 13:42 13:43 WBC 13.4 H (3.8-10.6) k/uL RBC 3.57 L (3.80-5.40) m/uL Hgb 11.0 L (11.4-16.0) gm/dL Hct 31.9 L (34.0-46.0) % Plt Count 107 L (150-450) k/uL Neutrophils # 11.6 H (1.3-7.7) k/uL Lymphocytes # (1.0-4.8) k/uL ABG pH (7.35-7.45) ABG pCO2 (35-45) mmHg ABG pO2 167 H (83-108) mmHg ABG HCO3 (21-25) mmol/L ABG Total CO2 26 H (19-24) mmol/L ABG O2 Saturation 99.1 H (94-97) % ABG Hematocrit 28 L (34.0-46.0) % ABG Potassium (3.4-4.5) mmol/L ABG Ionized Calcium (4.5-5.3) mg/dL ABG Glucose 146 H (75-99) mg/dL Hemoglobin 9.0 L (11.4-16.0) gm/dL Chloride (98-107) mmol/L Glucose (74-99) mg/dL POC Glucose (mg/dL) 132 H (70-110) mg/dL Calcium (8.4-10.2) mg/dL Magnesium (1.6-2.3) mg/dL AST (14-36) U/L Total Protein (6.3-8.2) g/dL Albumin (3.5-5.0) g/dL Arterial Blood Potassium (3.4-4.5) mmol/L Arterial Blood Glucose 146 H (75-99) mg/dL Crossmatch 06/17/22 06/17/22 06/17/22 Range/Units 13:43 14:19 14:58 WBC (3.8-10.6) k/uL RBC (3.80-5.40) m/uL Hgb (11.4-16.0) gm/dL Hct (34.0-46.0) % Plt Count (150-450) k/uL Neutrophils # (1.3-7.7) k/uL Lymphocytes # (1.0-4.8) k/uL ABG pH (7.35-7.45) ABG pCO2 (35-45) mmHg ABG pO2 >400 H (83-108) mmHg ABG HCO3 26 H (21-25) mmol/L ABG Total CO2 27 H (19-24) mmol/L ABG O2 Saturation 98.8 H (94-97) % ABG Hematocrit (34.0-46.0) % ABG Potassium (3.4-4.5) mmol/L ABG Ionized Calcium (4.5-5.3) mg/dL ABG Glucose (75-99) mg/dL Hemoglobin (11.4-16.0) gm/dL Chloride 110 H (98-107) mmol/L Glucose 134 H (74-99) mg/dL POC Glucose (mg/dL) 150 H (70-110) mg/dL Calcium 8.3 L (8.4-10.2) mg/dL Magnesium 2.7 H (1.6-2.3) mg/dL AST 54 H (14-36) U/L Total Protein 4.4 L (6.3-8.2) g/dL Albumin 2.7 L (3.5-5.0) g/dL Arterial Blood Potassium (3.4-4.5) mmol/L Arterial Blood Glucose (75-99) mg/dL Crossmatch 06/17/22 06/17/22 06/17/22 Range/Units 16:04 16:05 17:10 WBC 14.5 H (3.8-10.6) k/uL RBC 3.57 L (3.80-5.40) m/uL Hgb 11.1 L (11.4-16.0) gm/dL Hct 31.8 L (34.0-46.0) % Plt Count 118 L (150-450) k/uL Neutrophils # 12.5 H (1.3-7.7) k/uL Lymphocytes # (1.0-4.8) k/uL ABG pH (7.35-7.45) ABG pCO2 (35-45) mmHg ABG pO2 (83-108) mmHg ABG HCO3 (21-25) mmol/L ABG Total CO2 (19-24) mmol/L ABG O2 Saturation (94-97) % ABG Hematocrit (34.0-46.0) % ABG Potassium (3.4-4.5) mmol/L ABG Ionized Calcium (4.5-5.3) mg/dL ABG Glucose (75-99) mg/dL Hemoglobin (11.4-16.0) gm/dL Chloride (98-107) mmol/L Glucose (74-99) mg/dL POC Glucose (mg/dL) 138 H 161 H (70-110) mg/dL Calcium (8.4-10.2) mg/dL Magnesium (1.6-2.3) mg/dL AST (14-36) U/L Total Protein (6.3-8.2) g/dL Albumin (3.5-5.0) g/dL Arterial Blood Potassium (3.4-4.5) mmol/L Arterial Blood Glucose (75-99) mg/dL Crossmatch 06/17/22 06/17/22 06/17/22 Range/Units 18:15 18:51 18:54 WBC 14.6 H (3.8-10.6) k/uL RBC 3.47 L (3.80-5.40) m/uL Hgb 11.0 L (11.4-16.0) gm/dL Hct 31.2 L (34.0-46.0) % Plt Count 111 L (150-450) k/uL Neutrophils # 13.2 H (1.3-7.7) k/uL Lymphocytes # 0.7 L (1.0-4.8) k/uL ABG pH (7.35-7.45) ABG pCO2 (35-45) mmHg ABG pO2 (83-108) mmHg ABG HCO3 (21-25) mmol/L ABG Total CO2 (19-24) mmol/L ABG O2 Saturation (94-97) % ABG Hematocrit (34.0-46.0) % ABG Potassium (3.4-4.5) mmol/L ABG Ionized Calcium (4.5-5.3) mg/dL ABG Glucose (75-99) mg/dL Hemoglobin (11.4-16.0) gm/dL Chloride (98-107) mmol/L Glucose (74-99) mg/dL POC Glucose (mg/dL) 144 H 136 H (70-110) mg/dL Calcium (8.4-10.2) mg/dL Magnesium (1.6-2.3) mg/dL AST (14-36) U/L Total Protein (6.3-8.2) g/dL Albumin (3.5-5.0) g/dL Arterial Blood Potassium (3.4-4.5) mmol/L Arterial Blood Glucose (75-99) mg/dL Crossmatch 06/17/22 06/17/22 06/17/22 Range/Units 19:57 20:10 20:57 WBC (3.8-10.6) k/uL RBC (3.80-5.40) m/uL Hgb (11.4-16.0) gm/dL Hct (34.0-46.0) % Plt Count (150-450) k/uL Neutrophils # (1.3-7.7) k/uL Lymphocytes # (1.0-4.8) k/uL ABG pH (7.35-7.45) ABG pCO2 (35-45) mmHg ABG pO2 118 H (83-108) mmHg ABG HCO3 (21-25) mmol/L ABG Total CO2 26 H (19-24) mmol/L ABG O2 Saturation 99.0 H (94-97) % ABG Hematocrit (34.0-46.0) % ABG Potassium (3.4-4.5) mmol/L ABG Ionized Calcium (4.5-5.3) mg/dL ABG Glucose (75-99) mg/dL Hemoglobin (11.4-16.0) gm/dL Chloride (98-107) mmol/L Glucose (74-99) mg/dL POC Glucose (mg/dL) 138 H 142 H (70-110) mg/dL Calcium (8.4-10.2) mg/dL Magnesium (1.6-2.3) mg/dL AST (14-36) U/L Total Protein (6.3-8.2) g/dL Albumin (3.5-5.0) g/dL Arterial Blood Potassium (3.4-4.5) mmol/L Arterial Blood Glucose (75-99) mg/dL Crossmatch 06/17/22 06/17/22 06/18/22 Range/Units 22:06 22:58 00:02 WBC (3.8-10.6) k/uL RBC (3.80-5.40) m/uL Hgb (11.4-16.0) gm/dL Hct (34.0-46.0) % Plt Count (150-450) k/uL Neutrophils # (1.3-7.7) k/uL Lymphocytes # (1.0-4.8) k/uL ABG pH (7.35-7.45) ABG pCO2 (35-45) mmHg ABG pO2 (83-108) mmHg ABG HCO3 (21-25) mmol/L ABG Total CO2 (19-24) mmol/L ABG O2 Saturation (94-97) % ABG Hematocrit (34.0-46.0) % ABG Potassium (3.4-4.5) mmol/L ABG Ionized Calcium (4.5-5.3) mg/dL ABG Glucose (75-99) mg/dL Hemoglobin (11.4-16.0) gm/dL Chloride (98-107) mmol/L Glucose (74-99) mg/dL POC Glucose (mg/dL) 152 H 142 H 130 H (70-110) mg/dL Calcium (8.4-10.2) mg/dL Magnesium (1.6-2.3) mg/dL AST (14-36) U/L Total Protein (6.3-8.2) g/dL Albumin (3.5-5.0) g/dL Arterial Blood Potassium (3.4-4.5) mmol/L Arterial Blood Glucose (75-99) mg/dL Crossmatch 06/18/22 06/18/22 06/18/22 Range/Units 01:15 02:10 03:08 WBC (3.8-10.6) k/uL RBC (3.80-5.40) m/uL Hgb (11.4-16.0) gm/dL Hct (34.0-46.0) % Plt Count (150-450) k/uL Neutrophils # (1.3-7.7) k/uL Lymphocytes # (1.0-4.8) k/uL ABG pH (7.35-7.45) ABG pCO2 (35-45) mmHg ABG pO2 (83-108) mmHg ABG HCO3 (21-25) mmol/L ABG Total CO2 (19-24) mmol/L ABG O2 Saturation (94-97) % ABG Hematocrit (34.0-46.0) % ABG Potassium (3.4-4.5) mmol/L ABG Ionized Calcium (4.5-5.3) mg/dL ABG Glucose (75-99) mg/dL Hemoglobin (11.4-16.0) gm/dL Chloride (98-107) mmol/L Glucose (74-99) mg/dL POC Glucose (mg/dL) 127 H 122 H 114 H (70-110) mg/dL Calcium (8.4-10.2) mg/dL Magnesium (1.6-2.3) mg/dL AST (14-36) U/L Total Protein (6.3-8.2) g/dL Albumin (3.5-5.0) g/dL Arterial Blood Potassium (3.4-4.5) mmol/L Arterial Blood Glucose (75-99) mg/dL Crossmatch 06/18/22 06/18/22 06/18/22 Range/Units 03:53 04:00 04:00 WBC 17.0 H (3.8-10.6) k/uL RBC 3.37 L (3.80-5.40) m/uL Hgb 10.7 L (11.4-16.0) gm/dL Hct 30.1 L (34.0-46.0) % Plt Count 122 L (150-450) k/uL Neutrophils # 14.4 H (1.3-7.7) k/uL Lymphocytes # (1.0-4.8) k/uL ABG pH (7.35-7.45) ABG pCO2 (35-45) mmHg ABG pO2 (83-108) mmHg ABG HCO3 (21-25) mmol/L ABG Total CO2 (19-24) mmol/L ABG O2 Saturation (94-97) % ABG Hematocrit (34.0-46.0) % ABG Potassium (3.4-4.5) mmol/L ABG Ionized Calcium (4.5-5.3) mg/dL ABG Glucose (75-99) mg/dL Hemoglobin (11.4-16.0) gm/dL Chloride (98-107) mmol/L Glucose 122 H (74-99) mg/dL POC Glucose (mg/dL) 128 H (70-110) mg/dL Calcium 8.0 L (8.4-10.2) mg/dL Magnesium (1.6-2.3) mg/dL AST 53 H (14-36) U/L Total Protein 4.8 L (6.3-8.2) g/dL Albumin 3.1 L (3.5-5.0) g/dL Arterial Blood Potassium (3.4-4.5) mmol/L Arterial Blood Glucose (75-99) mg/dL Crossmatch 06/18/22 06/18/22 06/18/22 Range/Units 05:00 06:47 08:09 WBC (3.8-10.6) k/uL RBC (3.80-5.40) m/uL Hgb (11.4-16.0) gm/dL Hct (34.0-46.0) % Plt Count (150-450) k/uL Neutrophils # (1.3-7.7) k/uL Lymphocytes # (1.0-4.8) k/uL ABG pH (7.35-7.45) ABG pCO2 (35-45) mmHg ABG pO2 (83-108) mmHg ABG HCO3 (21-25) mmol/L ABG Total CO2 (19-24) mmol/L ABG O2 Saturation (94-97) % ABG Hematocrit (34.0-46.0) % ABG Potassium (3.4-4.5) mmol/L ABG Ionized Calcium (4.5-5.3) mg/dL ABG Glucose (75-99) mg/dL Hemoglobin (11.4-16.0) gm/dL Chloride (98-107) mmol/L Glucose (74-99) mg/dL POC Glucose (mg/dL) 135 H 147 H 171 H (70-110) mg/dL Calcium (8.4-10.2) mg/dL Magnesium (1.6-2.3) mg/dL AST (14-36) U/L Total Protein (6.3-8.2) g/dL Albumin (3.5-5.0) g/dL Arterial Blood Potassium (3.4-4.5) mmol/L Arterial Blood Glucose (75-99) mg/dL Crossmatch 06/18/22 06/18/22 Range/Units 09:14 10:13 WBC (3.8-10.6) k/uL RBC (3.80-5.40) m/uL Hgb (11.4-16.0) gm/dL Hct (34.0-46.0) % Plt Count (150-450) k/uL Neutrophils # (1.3-7.7) k/uL Lymphocytes # (1.0-4.8) k/uL ABG pH (7.35-7.45) ABG pCO2 (35-45) mmHg ABG pO2 (83-108) mmHg ABG HCO3 (21-25) mmol/L ABG Total CO2 (19-24) mmol/L ABG O2 Saturation (94-97) % ABG Hematocrit (34.0-46.0) % ABG Potassium (3.4-4.5) mmol/L ABG Ionized Calcium (4.5-5.3) mg/dL ABG Glucose (75-99) mg/dL Hemoglobin (11.4-16.0) gm/dL Chloride (98-107) mmol/L Glucose (74-99) mg/dL POC Glucose (mg/dL) 139 H 161 H (70-110) mg/dL Calcium (8.4-10.2) mg/dL Magnesium (1.6-2.3) mg/dL AST (14-36) U/L Total Protein (6.3-8.2) g/dL Albumin (3.5-5.0) g/dL Arterial Blood Potassium (3.4-4.5) mmol/L Arterial Blood Glucose (75-99) mg/dL Crossmatch Assessment and Plan Assessment: Coronary artery disease status post CABG. HERNANDEZ to LAD and SVG to OM. Postop day 1. Hypoxemic respiratory failure perioperatively. Currently extubated. On 2 L oxygen via nasal cannula. Paroxysmal atrial fibrillation on anticoagulation with Eliquis Hypothyroidism History of endometrial cancer status post hysterectomy Hyperlipidemia GERD Osteoarthritis Prior history of smoking DVT prophylaxis patient is currently on heparin subcu every 8 Plan: Patient will be continued on telemetry monitoring. Continue with aspirin Plavix and statins and also on metoprolol 25 mg twice daily. Amiodarone changed to p.o. 400 mg twice daily. Encourage incentive spirometry and activity. Continue with GI prophylaxis. Will start back on Eliquis once cleared by CT surgery. Continue insulin sliding scale for better blood sugar control. Further recommendations based on the clinical course. Thank you for your consult. Time with Patient: Greater than 30
[2022-06-19] MEDS: HYDROcodone/APAP 5-325MG 1 EACH TAB PO PRN ×5 (00:36→22:58)
--- NOTE | 2022-06-19 03:53 | P.PN ---
Subjective HISTORY OF PRESENTING ILLNESS Patient is pleasant 66-year-old female with history of coronary artery disease, paroxysmal atrial fibrillation, endometrial cancer, hypothyroidism, previous tobacco abuse who presented for elective CABG. She follows with Dr. Cunningham. He states over last few months she has been noticing increased dyspnea with mild exertion. She denies any lightheadedness or dizziness. She underwent CABG 06/17 with HERNANDEZ to LAD, SVG to OM and ligation of left atrial appendage. She had been doing fairly well overnight however went into A. fib with RVR this morning with heart rates in the 120s to 130s. She denies feeling any more short of breath. Tolerating Afib well with blood pressure stable. 06/19 Patient seen and examined. She denies any chest pain or pressure. She has been on amiodarone drip and converted to sinus rhythm. Denies any pain other than the sternotomy. PHYSICAL EXAMINATION Vital signs reviewed. CONSTITUTIONAL: No apparent distress. HEENT: Head is normocephalic. Pupils are equal, round. Sclerae anicteric. Mucous membranes of the mouth are moist. No JVD. No carotid bruit. CHEST EXAMINATION: Lungs are clear to auscultation. No chest wall tenderness is noted on palpation or with deep breathing. HEART EXAMINATION: Regular rate and rhythm. S1, S2 heard. No murmurs, gallops or rub. ABDOMEN: Soft, nontender. Positive bowel sounds. EXTREMITIES: 2+ peripheral pulses, no lower extremity edema and no calf tenderness. NEUROLOGIC EXAMINATION: Patient is awake, alert and oriented x3. ASSESSMENT 1. CAD status post CABG 06/17 with HERNANDEZ to LAD and SVG to OM 2. History of paroxysmal atrial fibrillation, currently A. fib with RVR 3. Hypothyroidism 4. Hypertension 5. Previous tobacco abuse 6. History of endometrial cancer PLAN Transition to oral amio. Monitor HR's. Uptitrate metoprolol as able, currently 25 mg twice a day for afib control. Continue supportive care. Restart Eliquis when cleared by surgery. Objective - Vital Signs Vital signs: Vital Signs Temp 98.4 F 06/19/22 00:00 Pulse 68 06/19/22 03:00 Resp 13 06/19/22 03:00 BP 103/69 06/18/22 21:00 Pulse Ox 95 06/19/22 03:00 FiO2 40 06/17/22 19:22 Intake & Output 06/18/22 06/18/22 06/19/22 06:59 18:59 06:59 Intake Total 5446.051 3676.414 874 Output Total 919 515 635 Balance 139.130 947.414 239 Weight 74.1 kg 74.1 kg Intake: IV 278 121 294 LR 240 cardiac index 170 40 pressure bag 108 81 54 Intake, IV Titration 780.130 981.414 40 Amount ACETAMINOPHEN IV (For NPO 100 ) 1,000 mg In Empty Bag 1 bag @ 400 mls/hr IVPB Q6HR [facility] Rx#:[id number] Albumin Human 5% 250 ml 500 In Empty Bag 1 bag @ 250 mls/hr IVPB Q1HR PRN Rx#: [id number] Dexmedetomidine/0.9% NaCl 10.157 (Pmx) 400 mcg In Empty Bag 1 bag @ Titrate IV . Q0M [facility] Rx#:[id number] Insulin Regular 100 unit 19.973 1.414 In Sodium Chloride 0.9% 100 ml @ Per Protocol IV .Q0M [facility] Rx#:[id number] Lactated Ringers 1,000 ml 600 430 40 @ 20 mls/hr IV .Q24H [facility] Rx#:[id number] ceFAZolin 2 gm In Sodium 50 50 Chloride 0.9% 50 ml @ 100 mls/hr IVPB Q8HR [facility] Rx# :[id number] Oral 360 540 Output: Chest Tube Drainage 384 200 140 MS 164 70 40 MS/LP 220 130 100 Urine 535 315 495 Other: Voiding Method Indwelling Catheter Indwelling Catheter Indwelling Catheter ABP, PAP, CO, CI - Last Documented Arterial Blood Pressure 115/54 Pulmonary Artery Pressure 32/15 Cardiac Output 4.5 Cardiac Index 2.5 - Labs CBC & Chem 7: 06/18/22 04:00 06/18/22 04:00 Labs: Abnormal Lab Results - Last 24 Hours (Table) 06/18/22 06/18/22 06/18/22 Range/Units 03:53 04:00 04:00 WBC 17.0 H (3.8-10.6) k/uL RBC 3.37 L (3.80-5.40) m/uL Hgb 10.7 L (11.4-16.0) gm/dL Hct 30.1 L (34.0-46.0) % Plt Count 122 L (150-450) k/uL Neutrophils # 14.4 H (1.3-7.7) k/uL Glucose 122 H (74-99) mg/dL POC Glucose (mg/dL) 128 H (70-110) mg/dL Calcium 8.0 L (8.4-10.2) mg/dL AST 53 H (14-36) U/L Total Protein 4.8 L (6.3-8.2) g/dL Albumin 3.1 L (3.5-5.0) g/dL 06/18/22 06/18/22 06/18/22 Range/Units 05:00 06:47 08:09 WBC (3.8-10.6) k/uL RBC (3.80-5.40) m/uL Hgb (11.4-16.0) gm/dL Hct (34.0-46.0) % Plt Count (150-450) k/uL Neutrophils # (1.3-7.7) k/uL Glucose (74-99) mg/dL POC Glucose (mg/dL) 135 H 147 H 171 H (70-110) mg/dL Calcium (8.4-10.2) mg/dL AST (14-36) U/L Total Protein (6.3-8.2) g/dL Albumin (3.5-5.0) g/dL 06/18/22 06/18/22 06/18/22 Range/Units 09:14 10:13 11:58 WBC (3.8-10.6) k/uL RBC (3.80-5.40) m/uL Hgb (11.4-16.0) gm/dL Hct (34.0-46.0) % Plt Count (150-450) k/uL Neutrophils # (1.3-7.7) k/uL Glucose (74-99) mg/dL POC Glucose (mg/dL) 139 H 161 H 131 H (70-110) mg/dL Calcium (8.4-10.2) mg/dL AST (14-36) U/L Total Protein (6.3-8.2) g/dL Albumin (3.5-5.0) g/dL 06/18/22 06/18/22 Range/Units 16:31 20:25 WBC (3.8-10.6) k/uL RBC (3.80-5.40) m/uL Hgb (11.4-16.0) gm/dL Hct (34.0-46.0) % Plt Count (150-450) k/uL Neutrophils # (1.3-7.7) k/uL Glucose (74-99) mg/dL POC Glucose (mg/dL) 146 H 124 H (70-110) mg/dL Calcium (8.4-10.2) mg/dL AST (14-36) U/L Total Protein (6.3-8.2) g/dL Albumin (3.5-5.0) g/dL
[2022-06-19 04:45] LABS: Basophils % (A) 0 %; Eosinophils # (A) 0.1 k/uL (0-0.7); Eosinophils % (A) 0 %; HCT 26.2 % (34.0-46.0); Lymphocytes # (A) 2.3 k/uL (1.0-4.8); Lymphocytes % (A) 15 %; MCH 31.5 pg (25.0-35.0); MCHC 34.9 g/dL (31.0-37.0); MCV 90.3 fL (80.0-100.0); Mean Platelet Volume 10.2; Monocytes # (A) 0.6 k/uL (0-1.0); Monocytes % (A) 4 %; Neutrophils # (A) 11.9 k/uL (1.3-7.7); Neutrophils % (A) 79 %; RDW 13.6 % (11.5-15.5); WBC 15.1 k/uL (3.8-10.6)
[2022-06-19 04:56] LABS: HGB 9.2 gm/dL (11.4-16.0)
[2022-06-19 05:13] LABS: Ionized Calcium 4.8 mg/dL (4.5-5.3)
[2022-06-19 05:23] LABS: ALT 22 U/L (4-34); AST 40 U/L (14-36); African American GFR (CKD) >90 (>60 ml/min/1.73 sqM); Alkaline Phosphatase 46 U/L (38-126); Anion Gap 1 mmol/L; Blood Urea Nitrogen 15 mg/dL (7-17); Carbon Dioxide 28 mmol/L (22-30); Chloride 103 mmol/L (98-107); Glucose 120 mg/dL (74-99); Non-African American GFR(CKD) 80 (>60 ml/min/1.73 sqM); Potassium 4.6 mmol/L (3.5-5.1); Sodium 132 mmol/L (137-145); Total Bilirubin 0.6 mg/dL (0.2-1.3); Total Protein 4.8 g/dL (6.3-8.2)
[2022-06-19 05:47] LABS: Platelet Count 96 k/uL (150-450)
[2022-06-19] MEDS: KETOROLAC 15 MG/ML 1 ML VIAL IVP SCH ×4 (06:00→22:59)
[2022-06-19] MEDS: LEVOTHYROXINE 25 MCG TAB PO SCH (06:01)
[2022-06-19 06:42] LABS: Glucose,Whole Blood 115 mg/dL (70-110)
[2022-06-19] MEDS: INSULIN ASPART (NovoLOG) 100 UNIT/ML VIAL SQ SCH ×4 (06:42→20:14)
[2022-06-19] MEDS: AMIODARONE 200 MG TAB PO SCH ×2 (06:56→20:23)
--- NOTE | 2022-06-19 07:23 | XR ---
EXAMINATION TYPE: XR chest 1V portable DATE OF EXAM: 06/19/2022 HISTORY: Post Op CABG COMPARISON: NONE TECHNIQUE: Single view of the chest is submitted. FINDINGS: Endotracheal tube as well as NG tube have been removed. [place]-Z[place] catheter is also been removed with right IJ sheath in place. Mediastinal drains and chest tubes are appropriately placed. Post operative changes of CABG. No sizeable pneumothorax. Scattered Pleural-parenchymal opacities may reflect atelectasis. The heart is not enlarged. IMPRESSION: 1. Post operative changes of CABG.
[2022-06-19] MEDS: IPRATROPIUM-ALBUTEROL 3 ML NEB INHALATION SCH ×4 (08:01→19:44)
[2022-06-19] MEDS: MAGNESIUM HYDROXIDE 2,400 MG/10 ML CUP PO PRN (08:24)
[2022-06-19] MEDS: CHOLECALCIFEROL 125 MCG (5000 IU) TABLET PO SCH (08:24)
[2022-06-19] MEDS: METOPROLOL TARTRATE 25 MG TAB PO SCH ×2 (08:24→20:23)
[2022-06-19] MEDS: PANTOPRAZOLE 40 MG TABLET PO SCH (08:24)
[2022-06-19] MEDS: ASPIRIN 325 MG TAB PO SCH (08:24)
[2022-06-19] MEDS: HEPARIN SODIUM,PORCINE/PF 5,000 UNIT/0.5 ML SYRINGE SQ SCH ×3 (08:24→22:59)
[2022-06-19] MEDS: CLOPIDOGREL 75 MG TAB PO SCH (08:24)
[2022-06-19] MEDS: VITAMIN E (DL,TOCOPHERYL ACET) 400 UNIT (180 MG) CAP PO SCH (08:27)
[2022-06-19] MEDS: ZINC SULFATE 220 MG CAP PO SCH (08:27)
--- NOTE | 2022-06-19 08:51 | P.PN ---
Subjective Progress Note Date: 06/19/22 Principal diagnosis: Coronary artery disease, stable angina. Previous medical history of hyperlipidemia, paroxysmal atrial fibrillation, hypothyroid, endometrial cancer, previous tobacco dependence POD #2 coronary artery bypass grafting 2 vessels, left internal mammary artery to the left anterior descending artery, reverse saphenous vein graft to the obtuse marginal artery, endoscopic harvesting of the right greater saphenous vein, ligation of the left atrial appendage using a 35 mm AtriClip, pulmonary vein isolation, epi-aortic ultrasound, intraoperative transesophageal echocardiogram Postoperative acute blood loss anemia and thrombocytopenia, expected given hemodilution and cardiopulmonary bypass pump Atrial fibrillation, known comment occurrence after open heart surgery especially with history of paroxysmal atrial fibrillation, not a complication The patient was seen and examined this morning sitting up in a recliner on the intensive care unit in no acute distress. Converted back to sinus rhythm, remains hemodynamically stable. States post surgical pain is mostly controlled with current medication regimen, denies shortness of breath, her only complaint is continued back spasms which she states she has had in the past. She is currently on 2 L nasal cannula with oxygen saturation in the mid 90s. Lab work and chest x-ray reviewed. Right internal jugular Cordis, left radial arterial line, mediastinal/right/left pleural chest tubes all present. No other new concerns. Objective - Vital Signs Vital signs: Vital Signs Temp 98.5 F 06/19/22 04:00 Pulse 74 06/19/22 08:14 Resp 15 06/19/22 07:00 BP 103/69 06/18/22 21:00 Pulse Ox 95 06/19/22 07:00 FiO2 40 06/17/22 19:22 Intake & Output 06/18/22 06/19/22 06/19/22 18:59 06:59 18:59 Intake Total 1462.414 982 36 Output Total 515 820 35 Balance 947.414 162 1 Weight 74.1 kg 76.2 kg Intake: IV 121 402 36 LR 330 30 cardiac index 40 pressure bag 81 72 6 Intake, IV Titration 981.414 40 Amount Albumin Human 5% 250 ml 500 In Empty Bag 1 bag @ 250 mls/hr IVPB Q1HR [facility] Rx#: [id number] Insulin Regular 100 unit 1.414 In Sodium Chloride 0.9% 100 ml @ Per Protocol IV .Q0M [facility] Rx#:[id number] Lactated Ringers 1,000 ml 430 40 @ 20 mls/hr IV .Q24H [facility] Rx#:[id number] ceFAZolin 2 gm In Sodium 50 Chloride 0.9% 50 ml @ 100 mls/hr IVPB Q8HR [facility] Rx# :[id number] Oral 360 540 Output: Chest Tube Drainage 200 250 MS 70 50 MS/LP 130 200 Urine 315 570 35 Other: Voiding Method Indwelling Catheter Indwelling Catheter ABP, PAP, CO, CI - Last Documented Arterial Blood Pressure 119/54 Pulmonary Artery Pressure 32/15 Cardiac Output 4.5 Cardiac Index 2.5 - Exam CONSTITUTIONAL: Appears comfortable, cooperative, no acute distress RESPIRATORY: Lungs sounds diminished bilaterally. Respirations even, nonlabored. Currently on 2 L nasal cannula with oxygen saturation 93%. Able to achieve 500 mL on incentive spirometry. Weak cough. CARDIOVASCULAR: S1, S2 present. Regular rate and rhythm, sinus rhythm on telemetry. Sternum stable. Palpable peripheral pulses bilaterally. No edema present. No calf pain or tenderness noted. Heart hugger in place with patient demonstrating appropriate use. Antiembolism stockings, SCDs present. GASTROINTESTINAL: Abdomen soft, nontender, nondistended. Hypoactive bowel sounds present 4 quadrants. Tolerating full liquids. Denies flatus, nausea, abdominal pain GENITOURINARY: Singh present draining clear, yellow urine. Output overnight 35-60 mL per hour, 885 mL in last 24 hours INTEGUMENTARY: Skin is warm and dry with evidence of good perfusion. Anterior chest incision well approximated and covered with dry intact dressing. Right lower extremity EVH site well approximated without redness or drainage. NEUROLOGIC: Cranial nerves II through XII intact MUSKULOSKELETAL: Able to move all extremities, strength equal bilaterally, gait normal PSYCHIATRIC: Alert and oriented to person place and time, appropriate affect, intact judgment and insight INVASIVE LINES AND TUBES: Mediastinal/left/right pleural chest tubes present and connected to wall suction, no air leaks present. Mediastinal tube with 30 mL serosanguineous drainage overnight, 100 mL in the last 24 hours. Left/right pleural chest tubes with 150 mL serosanguineous drainage overnight, 400 mL in the last 24 hours. Ventricular epicardial pacemaker wire present, grounded. Right internal jugular Cordis, left radial arterial line present. CVP 3-4 - Allied health notes Allied health notes reviewed: nursing - Labs CBC & Chem 7: 06/19/22 04:30 06/19/22 04:30 Labs: Abnormal Lab Results - Last 24 Hours (Table) 06/18/22 06/18/22 06/18/22 Range/Units 09:14 10:13 11:58 WBC (3.8-10.6) k/uL RBC (3.80-5.40) m/uL Hgb (11.4-16.0) gm/dL Hct (34.0-46.0) % Plt Count (150-450) k/uL Neutrophils # (1.3-7.7) k/uL Sodium (137-145) mmol/L Glucose (74-99) mg/dL POC Glucose (mg/dL) 139 H 161 H 131 H (70-110) mg/dL Calcium (8.4-10.2) mg/dL AST (14-36) U/L Total Protein (6.3-8.2) g/dL Albumin (3.5-5.0) g/dL 06/18/22 06/18/22 06/19/22 Range/Units 16:31 20:25 04:30 WBC 15.1 H (3.8-10.6) k/uL RBC 2.90 L (3.80-5.40) m/uL Hgb 9.2 L D (11.4-16.0) gm/dL Hct 26.2 L (34.0-46.0) % Plt Count 96 L (150-450) k/uL Neutrophils # 11.9 H (1.3-7.7) k/uL Sodium (137-145) mmol/L Glucose (74-99) mg/dL POC Glucose (mg/dL) 146 H 124 H (70-110) mg/dL Calcium (8.4-10.2) mg/dL AST (14-36) U/L Total Protein (6.3-8.2) g/dL Albumin (3.5-5.0) g/dL 06/19/22 06/19/22 Range/Units 04:30 06:41 WBC (3.8-10.6) k/uL RBC (3.80-5.40) m/uL Hgb (11.4-16.0) gm/dL Hct (34.0-46.0) % Plt Count (150-450) k/uL Neutrophils # (1.3-7.7) k/uL Sodium 132 L (137-145) mmol/L Glucose 120 H (74-99) mg/dL POC Glucose (mg/dL) 115 H (70-110) mg/dL Calcium 8.0 L (8.4-10.2) mg/dL AST 40 H (14-36) U/L Total Protein 4.8 L (6.3-8.2) g/dL Albumin 3.0 L (3.5-5.0) g/dL - Imaging and Cardiology Chest x-ray: report reviewed, image reviewed Assessment and Plan Assessment: 1. Coronary artery disease, stable angina, status post 2 vessel CABG 2. Preserved left ventricular systolic function, EF 55-60% 3. History of hyperlipidemia, treated, cholesterol 208, LDL 129 4. Paroxysmal atrial fibrillation, on Eliquis outpatient, status post pulmonary vein isolation and left atrial appendage ligation 5. Hypothyroid, preoperative TSH 4.289 6. History of endometrial cancer 7. Previous tobacco dependence, preoperative FEV1 110% of predicted 8. Postoperative acute blood loss anemia and thrombocytopenia, expected 9. Atrial fibrillation, known comment occurrence after open heart surgery especially with history of paroxysmal atrial fibrillation, not a complication Plan: 1. Continue to maximize medical therapy with aspirin, statin, Plavix, beta wendy therapy. Will increase beta wenyd therapy as tolerated 2. Continue amiodarone, transition to oral. Patient will be discharged home on her outpatient dose of Eliquis, no anticoagulation at this time 3. Wean O2 as tolerated. Encourage incentive spirometry 10 times every hour while awake. Bronchodilators per pulmonology 4. Increase activity, ambulate as tolerated. PT/OT/cardiac rehab following 5. Will monitor daily labs and x-rays. Electrolyte replacement per protocol. No lasix today 6. GI/DVT prophylaxis 7. Pain control with current medication regimen 8. Insulin management per primary care service. Patient is not diabetic, preoperative hemoglobin A1c 5.5% 9. Discontinue arterial line 10. Mediastinal chest tube discontinued, right/left pleural chest tubes split, will continue for another 24 hours 11. Discontinue Singh catheter. May bladder scan and straight cath for >300 mL residual 12. Strict accurate intake and output 13. More recommendations to follow
[2022-06-19 11:51] LABS: Glucose,Whole Blood 122 mg/dL (70-110)
--- NOTE | 2022-06-19 12:33 | P.PN ---
Subjective Progress Note Date: 06/19/22 Principal diagnosis: coronary artery bypass grafting 2 vessels, left internal mammary artery to the left anterior descending artery, reverse saphenous vein graft to the obtuse g[place] inal artery, endoscopic harvesting of the right greater saphenous vein, ligation of the left atrial appendage using a 35 mm AtriClip, pulmonary vein isolation, epi-aortic ultrasound, intraoperative transesophageal echocardiogram Reevaluated today on 06/18/22, patient remains in the ICU, patient was extubated yesterday at 2022, she tolerated the extubation quite well. Patient is relatively asymptomatic. She is on 2.5 L nasal cannula, O2 sats is 98%. Patient is not requiring any pressors today, however she is on amiodarone drip for atrial fibrillation, chest x-ray showed mostly postoperative changes, expected. No acute process is noted. Her hemodynamics showed a cardiac output of 3.7 and a cardiac index of 2.0. PA pressure is 33/16, CVP is 13. Patient is on amiodarone drip as noted earlier she is also on insulin at 2 units per hour. Overall the patient is doing well. WBC count is 17 hemoglobin is 10.7. Electrolytes and basic metabolic profile are normal. Reevaluated today on , patient is sitting in a recliner, she is now in sinus rhythm, she is hemodynamically stable, doing better with incentive spirometry, she is on 2 L nasal cannula, her mediastinal tube has been removed. chest x-rays showing minimal basilar atelectasis, no evidence of congestive heart failure. Overall the patient is doing quite well. WBC count is 15.1 hemoglobin 9.2 electrolytes are normal renal profile is normal Objective - Vital Signs Vital signs: Vital Signs Temp 98.4 F 06/19/22 08:00 Pulse 70 06/19/22 11:56 Resp 12 06/19/22 11:00 BP 103/69 06/18/22 21:00 Pulse Ox 95 06/19/22 11:00 FiO2 40 06/17/22 19:22 Intake & Output 06/18/22 06/19/22 06/19/22 18:59 06:59 18:59 Intake Total 1462.414 982 377 Output Total 515 820 70 Balance 947.414 162 307 Weight 74.1 kg 76.2 kg Intake: IV 121 402 177 LR 330 150 cardiac index 40 pressure bag 81 72 27 Intake, IV Titration 981.414 40 Amount Albumin Human 5% 250 ml 500 In Empty Bag 1 bag @ 250 mls/hr IVPB Q1HR [facility] Rx#: [id number] Insulin Regular 100 unit 1.414 In Sodium Chloride 0.9% 100 ml @ Per Protocol IV .Q0M [facility] Rx#:[id number] Lactated Ringers 1,000 ml 430 40 @ 20 mls/hr IV .Q24H [facility] Rx#:[id number] ceFAZolin 2 gm In Sodium 50 Chloride 0.9% 50 ml @ 100 mls/hr IVPB Q8HR [facility] Rx# :[id number] Oral 360 540 200 Output: Chest Tube Drainage 200 250 LP 130 200 MS 70 50 Urine 315 570 70 Other: Voiding Method Indwelling Catheter Indwelling Catheter Indwelling Catheter ABP, PAP, CO, CI - Last Documented Arterial Blood Pressure 120/46 Pulmonary Artery Pressure 32/15 Cardiac Output 4.5 Cardiac Index 2.5 - Exam Physical Exam: Revealed 66-year-old female in no distress. On 2 L nasal cannula. Head: Atraumatic, normocephalic. HEENT:[Neck is supple.] [No neck masses.] [No thyromegaly.] [No JVD.] Right IJ Cordis is noted, and PA catheter is also noted Chest: [Clear throughout, no crackles, no rhonchi, no wheezes.] left, right pleural chest tube was noted. Cardiac Exam: [Normal S1 and S2, no S3 gallop, no murmur.] Abdomen: [Soft, nontender, no megaly, no rebound, no guarding, normal bowel sounds.] Extremities: [No clubbing, no edema, no cyanosis.] [3 arterial line is still in place. Neurological Exam: [No focal neurologic deficit.] Alert and oriented 3. Psychiatric: Normal mood affect and normal mental status examination. Skin: No rashes - Labs CBC & Chem 7: 06/19/22 04:30 06/19/22 04:30 Labs: Abnormal Lab Results - Last 24 Hours (Table) 06/18/22 06/18/22 06/19/22 Range/Units 16:31 20:25 04:30 WBC 15.1 H (3.8-10.6) k/uL RBC 2.90 L (3.80-5.40) m/uL Hgb 9.2 L D (11.4-16.0) gm/dL Hct 26.2 L (34.0-46.0) % Plt Count 96 L (150-450) k/uL Neutrophils # 11.9 H (1.3-7.7) k/uL Sodium (137-145) mmol/L Glucose (74-99) mg/dL POC Glucose (mg/dL) 146 H 124 H (70-110) mg/dL Calcium (8.4-10.2) mg/dL AST (14-36) U/L Total Protein (6.3-8.2) g/dL Albumin (3.5-5.0) g/dL 06/19/22 06/19/22 06/19/22 Range/Units 04:30 06:41 11:49 WBC (3.8-10.6) k/uL RBC (3.80-5.40) m/uL Hgb (11.4-16.0) gm/dL Hct (34.0-46.0) % Plt Count (150-450) k/uL Neutrophils # (1.3-7.7) k/uL Sodium 132 L (137-145) mmol/L Glucose 120 H (74-99) mg/dL POC Glucose (mg/dL) 115 H 122 H (70-110) mg/dL Calcium 8.0 L (8.4-10.2) mg/dL AST 40 H (14-36) U/L Total Protein 4.8 L (6.3-8.2) g/dL Albumin 3.0 L (3.5-5.0) g/dL Assessment and Plan Assessment: Impression: Status post CABG, postoperative day #2 HERNANDEZ to LAD and SVG to OM Paroxysmal atrial fibrillation History of hypertension Ex-smoker History of endometrial cancer Dyslipidemia History of hypothyroidism Recommendation: Continue aspirin and Plavix beta blockers Continue oral amiodarone Continue to ambulate Continue GI and DVT prophylaxis removal of chest tubes in the next 24 hours, mediastinal tube has been removed We will continue to follow. Time with Patient: Less than 30
[2022-06-19] MEDS: LACTATED RINGERS 1,000 ML IV SCH (13:01)
[2022-06-19 16:58] LABS: Glucose,Whole Blood 121 mg/dL (70-110)
[2022-06-19 20:11] LABS: Glucose,Whole Blood 128 mg/dL (70-110)
[2022-06-19] MEDS: ATORVASTATIN 80 MG TAB PO SCH (20:23)
[2022-06-19] MEDS: SENNOSIDES-DOCUSATE SODIUM 1 EACH TAB PO SCH (20:23)
[2022-06-19] MEDS ORDERED: DEXTROSE 5% IN WATER 100 ML with AMIODARONE 150 MG IV ONE (21:02)
[2022-06-19] MEDS ORDERED: METOPROLOL TARTRATE 25 MG TAB PO STA (22:44)
[2022-06-20] MEDS: HYDROcodone/APAP 5-325MG 1 EACH TAB PO PRN ×5 (04:52→22:27)
[2022-06-20 06:05] LABS: Basophils # (A) 0.1 k/uL (0-0.2); Basophils % (A) 0 %; Eosinophils # (A) 0.3 k/uL (0-0.7); Eosinophils % (A) 2 %; HCT 28.6 % (34.0-46.0); HGB 9.9 gm/dL (11.4-16.0); Lymphocytes # (A) 2.5 k/uL (1.0-4.8); Lymphocytes % (A) 18 %; MCH 31.9 pg (25.0-35.0); MCHC 34.7 g/dL (31.0-37.0); MCV 92.1 fL (80.0-100.0); Mean Platelet Volume 8.8; Monocytes # (A) 0.6 k/uL (0-1.0); Monocytes % (A) 4 %; Neutrophils # (A) 10.2 k/uL (1.3-7.7); Neutrophils % (A) 73 %; Platelet Count 135 k/uL (150-450); RDW 13.3 % (11.5-15.5)
[2022-06-20] MEDS: LEVOTHYROXINE 25 MCG TAB PO SCH (06:14)
[2022-06-20] MEDS: KETOROLAC 15 MG/ML 1 ML VIAL IVP SCH ×4 (06:14→23:39)
[2022-06-20 06:16] LABS: Potassium 4.3 mmol/L (3.5-5.1); Total Bilirubin 0.5 mg/dL (0.2-1.3)
[2022-06-20 06:30] LABS: Glucose,Whole Blood 105 mg/dL (70-110)
[2022-06-20] MEDS: INSULIN ASPART (NovoLOG) 100 UNIT/ML VIAL SQ SCH ×4 (06:46→20:26)
[2022-06-20] MEDS: PANTOPRAZOLE 40 MG TABLET PO SCH (06:47)
--- NOTE | 2022-06-20 07:36 | XR ---
EXAMINATION TYPE: XR chest 1V portable DATE OF EXAM: 06/20/2022 HISTORY: Post Op CABG COMPARISON: NONE TECHNIQUE: Single view of the chest is submitted. FINDINGS: Bilateral chest tubes are in place without evidence for sizable pneumothorax. Mediastinal drain has b een removed. Right IJ sheath remains in place. Post operative changes of CABG. No sizeable pneumothorax. Scattered Pleural-parenchymal opacities may reflect atelectasis. The heart mildly enlarged. IMPRESSION: 1. Post operative changes of CABG.
[2022-06-20] MEDS: IPRATROPIUM-ALBUTEROL 3 ML NEB INHALATION SCH ×4 (07:51→21:46)
[2022-06-20] MEDS: HEPARIN SODIUM,PORCINE/PF 5,000 UNIT/0.5 ML SYRINGE SQ SCH ×3 (08:03→23:38)
[2022-06-20] MEDS: CLOPIDOGREL 75 MG TAB PO SCH (08:03)
[2022-06-20] MEDS: ASPIRIN 325 MG TAB PO SCH (08:03)
[2022-06-20] MEDS: AMIODARONE 200 MG TAB PO SCH ×2 (08:04→20:33)
[2022-06-20] MEDS: CHOLECALCIFEROL 125 MCG (5000 IU) TABLET PO SCH (08:04)
[2022-06-20] MEDS: METOPROLOL TARTRATE 25 MG TAB PO SCH ×4 (08:04→23:39)
[2022-06-20] MEDS: ZINC SULFATE 220 MG CAP PO SCH (08:04)
--- NOTE | 2022-06-20 08:18 | P.PN ---
Subjective Progress Note Date: 06/20/22 Principal diagnosis: Coronary artery disease, stable angina. Previous medical history of hyperlipidemia, paroxysmal atrial fibrillation, hypothyroid, endometrial cancer, previous tobacco dependence POD #3 coronary artery bypass grafting 2 vessels, left internal mammary artery to the left anterior descending artery, reverse saphenous vein graft to the obtuse marginal artery, endoscopic harvesting of the right greater saphenous vein, ligation of the left atrial appendage using a 35 mm AtriClip, pulmonary vein isolation, epi-aortic ultrasound, intraoperative transesophageal echocardiogram Postoperative acute blood loss anemia and thrombocytopenia, expected given hemodilution and cardiopulmonary bypass pump Atrial fibrillation, known comment occurrence after open heart surgery especially with history of paroxysmal atrial fibrillation, not a complication The patient was seen and examined this morning sitting up in a recliner on the intensive care unit in no acute distress. Converted back to afib last night, blood pressure soft but MAP stable in the high 60s-80s. Received fourth amio bolus last night and added dose of lopressor. States post surgical pain is m ostly controlled with current medication regimen, denies shortness of breath. She is currently on 2 L nasal cannula with oxygen saturation in the mid 90s, off oxygen her saturations are 88-92%. Lab work and chest x-ray reviewed. Right internal jugular Cordis, right/left pleural chest tubes all present. No other new concerns. Objective - Vital Signs Vital signs: Vital Signs Temp 98.7 F 06/20/22 04:00 Pulse 116 H 06/20/22 08:08 Resp 24 06/20/22 07:00 BP 102/68 06/20/22 07:00 Pulse Ox 92 L 06/20/22 07:55 FiO2 40 06/17/22 19:22 Intake & Output 06/19/22 06/20/22 06/20/22 18:59 06:59 18:59 Intake Total 648 276 46 Output Total 1200 869 65 Balance -552 -593 -19 Weight 75.8 kg Intake: IV 348 276 46 LR 300 240 40 pressure bag 48 36 6 Oral 300 Output: Chest Tube Drainage 80 169 65 LP 50 106 50 Right 30 63 15 Urine 1120 700 Other: Voiding Method Bedside Commode Bedside Commode ABP, PAP, CO, CI - Last Documented Arterial Blood Pressure 120/46 Pulmonary Artery Pressure 32/15 Cardiac Output 4.5 Cardiac Index 2.5 - Exam CONSTITUTIONAL: Appears comfortable, cooperative, no acute distress RESPIRATORY: Lungs sounds diminished bilaterally. Respirations even, nonlabored. Currently on 2 L nasal cannula with oxygen saturation 95%. Able to achieve 750 mL on incentive spirometry. Weak cough but stronger than yesterday. CARDIOVASCULAR: S1, S2 present. [place], irregular rate and rhythm, afib on telemetry. Sternum stable. Palpable peripheral pulses bilaterally. Trace generalized edema present. No calf pain or tenderness noted. Heart hugger in place with patient demonstrating appropriate use. Antiembolism stockings, SCDs present. GASTROINTESTINAL: Abdomen soft, nontender, nondistended. Active bowel sounds present 4 quadrants. Tolerating diet. Positive flatus GENITOURINARY: Singh discontinued yesterday, continued to void clear, yellow urine. Output 1820 mL in last 24 hours INTEGUMENTARY: Skin is warm and dry with evidence of good perfusion. Anterior chest incision well approximated and covered with dry intact dressing. Right lower extremity EVH site well approximated without redness or drainage. NEUROLOGIC: Cranial nerves II through XII intact MUSKULOSKELETAL: Able to move all extremities, strength equal bilaterally, gait normal PSYCHIATRIC: Alert and oriented to person place and time, appropriate affect, intact judgment and insight INVASIVE LINES AND TUBES: Left/right pleural chest tubes present and connected to wall suction, no air leaks present. Left chest tube with 78 mL serosanguineous drainage overnight, 250 mL in the last 24 hours. Right pleural chest tube with 46 mL serosanguineous drainage overnight, 95 mL in the last 24 hours. Ventricular epicardial pacemaker wire present, grounded. Right internal jugular Cordis present. CVP 2-3 - Allied health notes Allied health notes reviewed: nursing - Labs CBC & Chem 7: 06/20/22 05:44 06/20/22 05:44 Labs: Abnormal Lab Results - Last 24 Hours (Table) 06/19/22 06/19/22 06/19/22 Range/Units 11:49 16:46 20:10 WBC (3.8-10.6) k/uL RBC (3.80-5.40) m/uL Hgb (11.4-16.0) gm/dL Hct (34.0-46.0) % Plt Count (150-450) k/uL Neutrophils # (1.3-7.7) k/uL POC Glucose (mg/dL) 122 H 121 H 128 H (70-110) mg/dL Calcium (8.4-10.2) mg/dL Total Protein (6.3-8.2) g/dL Albumin (3.5-5.0) g/dL 06/20/22 06/20/22 Range/Units 05:44 05:44 WBC 14.0 H (3.8-10.6) k/uL RBC 3.10 L (3.80-5.40) m/uL Hgb 9.9 L (11.4-16.0) gm/dL Hct 28.6 L (34.0-46.0) % Plt Count 135 L (150-450) k/uL Neutrophils # 10.2 H (1.3-7.7) k/uL POC Glucose (mg/dL) (70-110) mg/dL Calcium 8.0 L (8.4-10.2) mg/dL Total Protein 5.0 L (6.3-8.2) g/dL Albumin 3.0 L (3.5-5.0) g/dL - Imaging and Cardiology Chest x-ray: report reviewed, image reviewed Assessment and Plan Assessment: 1. Coronary artery disease, stable angina, status post 2 vessel CABG 2. Preserved left ventricular systolic function, EF 55-60% 3. History of hyperlipidemia, treated, cholesterol 208, LDL 129 4. Paroxysmal atrial fibrillation, on Eliquis outpatient, status post pulmonary vein isolation and left atrial appendage ligation 5. Hypothyroid, preoperative TSH 4.289 6. History of endometrial cancer 7. Previous tobacco dependence, preoperative FEV1 110% of predicted 8. Postoperative acute blood loss anemia and thrombocytopenia, expected 9. Atrial fibrillation, known comment occurrence after open heart surgery especially with history of paroxysmal atrial fibrillation, not a complication Plan: 1. Continue to maximize medical therapy with aspirin, statin, Plavix, beta wendy therapy. Will increase beta wendy therapy as tolerated, increased to TID today 2. Continue amiodarone. Patient will be discharged home on her outpatient dose of Eliquis, no anticoagulation at this time. Will add digoxin for better rate control 3. Wean O2 as tolerated. Encourage incentive spirometry 10 times every hour while awake. Bronchodilators per pulmonology 4. Increase activity, ambulate as tolerated. PT/OT/cardiac rehab following 5. Will monitor daily labs and x-rays. Electrolyte replacement per protocol. No lasix today 6. GI/DVT prophylaxis 7. Pain control with current medication regimen 8. Insulin management per primary care service. Patient is not diabetic, preoperative hemoglobin A1c 5.5% 9. Discontinue cordis 10. Will discontinue right chest tube, will leave left pleural chest tube for another 24 hours 11. Strict accurate intake and output 12. More recommendations to follow
[2022-06-20] MEDS ORDERED: DIGOXIN 250 MCG/ML 2 ML AMP IVP STA (08:22)
[2022-06-20] MEDS: VITAMIN E (DL,TOCOPHERYL ACET) 400 UNIT (180 MG) CAP PO SCH (08:43)
--- NOTE | 2022-06-20 11:16 | P.PN ---
Subjective Progress Note Date: 06/20/22 Principal diagnosis: coronary artery bypass grafting 2 vessels, left internal mammary artery to the left anterior descending artery, reverse saphenous vein graft to the obtuse gama inal artery, endoscopic harvesting of the right greater saphenous vein, ligation of the left atrial appendage using a 35 mm AtriClip, pulmonary vein isolation, epi-aortic ultrasound, intraoperative transesophageal echocardiogram Reevaluated today on 06/18/22, patient remains in the ICU, patient was extubated yesterday at 2022, she tolerated the extubation quite well. Patient is relatively asymptomatic. She is on 2.5 L nasal cannula, O2 sats is 98%. Patient is not requiring any pressors today, however she is on amiodarone drip for atrial fibrillation, chest x-ray showed mostly postoperative changes, expected. No acute process is noted. Her hemodynamics showed a cardiac output of 3.7 and a cardiac index of 2.0. PA pressure is 33/16, CVP is 13. Patient is on amiodarone drip as noted earlier she is also on insulin at 2 units per hour. Overall the patient is doing well. WBC count is 17 hemoglobin is 10.7. Electrolytes and basic metabolic profile are normal. Reevaluated today on , patient is sitting in a recliner, she is now in sinus rhythm, she is hemodynamically stable, doing better with incentive spirometry, she is on 2 L nasal cannula, her mediastinal tube has been removed. chest x-rays showing minimal basilar atelectasis, no evidence of congestive heart failure. Overall the patient is doing quite well. WBC count is 15.1 hemoglobin 9.2 electrolytes are normal renal profile is normal Reevaluated today on 06/20/22, patient is doing fairly well, sitting in a recliner, she converted back to A. fib last night, did receive amiodarone bolus last night, and Lopressor was added. Otherwise the patient is doing well, she is on 2 L nasal cannula, O2 saturations around running in the low 90s. Chest x- ray showed mostly baby some atelectasis. Right and left chest tubes remain in place. Objective - Vital Signs Vital signs: Vital Signs Temp 98.7 F 06/20/22 04:00 Pulse 112 H 06/20/22 09:00 Resp 14 06/20/22 09:00 BP 105/68 06/20/22 09:00 Pulse Ox 96 06/20/22 09:00 FiO2 40 06/20/22 08:00 Intake & Output 06/19/22 06/20/22 06/20/22 18:59 06:59 18:59 Intake Total 648 276 69 Output Total 1200 869 65 Balance -552 -593 4 Weight 75.8 kg Intake: IV 348 276 69 LR 300 240 60 pressure bag 48 36 9 Oral 300 Output: Chest Tube Drainage 80 169 65 LP 50 106 50 Right 30 63 15 Urine 1120 700 Other: Voiding Method Bedside Commode Bedside Commode Bedside Commode ABP, PAP, CO, CI - Last Documented Arterial Blood Pressure 120/46 Pulmonary Artery Pressure 32/15 Cardiac Output 4.5 Cardiac Index 2.5 - Exam Physical Exam: Revealed 66-year-old female in no distress. On 2 L nasal cannula. Head: Atraumatic, normocephalic. HEENT:[Neck is supple.] [No neck masses.] [No thyromegaly.] [No JVD.] Right IJ Cordis is noted, and PA catheter is also noted Chest: [Clear throughout, no crackles, no rhonchi, no wheezes.] left, right pleural chest tube was noted. Cardiac Exam: [Normal S1 and S2, no S3 gallop, no murmur.] Abdomen: [Soft, nontender, no megaly, no rebound, no guarding, normal bowel sounds.] Extremities: [No clubbing, no edema, no cyanosis.] [3 arterial line is still in place. Neurological Exam: [No focal neurologic deficit.] Alert and oriented 3. Psychiatric: Normal mood affect and normal mental status examination. Skin: No rashes - Labs CBC & Chem 7: 06/20/22 05:44 06/20/22 05:44 Labs: Abnormal Lab Results - Last 24 Hours (Table) 06/19/22 06/19/22 06/19/22 Range/Units 11:49 16:46 20:10 WBC (3.8-10.6) k/uL RBC (3.80-5.40) m/uL Hgb (11.4-16.0) gm/dL Hct (34.0-46.0) % Plt Count (150-450) k/uL Neutrophils # (1.3-7.7) k/uL POC Glucose (mg/dL) 122 H 121 H 128 H (70-110) mg/dL Calcium (8.4-10.2) mg/dL Total Protein (6.3-8.2) g/dL Albumin (3.5-5.0) g/dL 06/20/22 06/20/22 Range/Units 05:44 05:44 WBC 14.0 H (3.8-10.6) k/uL RBC 3.10 L (3.80-5.40) m/uL Hgb 9.9 L (11.4-16.0) gm/dL Hct 28.6 L (34.0-46.0) % Plt Count 135 L (150-450) k/uL Neutrophils # 10.2 H (1.3-7.7) k/uL POC Glucose (mg/dL) (70-110) mg/dL Calcium 8.0 L (8.4-10.2) mg/dL Total Protein 5.0 L (6.3-8.2) g/dL Albumin 3.0 L (3.5-5.0) g/dL Assessment and Plan Assessment: Impression: Status post CABG, postoperative day #3 HERNANDEZ to LAD and SVG to OM Paroxysmal atrial fibrillation History of hypertension Ex-smoker History of endometrial cancer Dyslipidemia History of hypothyroidism Recommendation: Continue aspirin and Plavix beta blockers Continue oral amiodarone Continue to ambulate Continue GI and DVT prophylaxis We will continue to follow. Time with Patient: Less than 30
[2022-06-20 11:52] LABS: Glucose,Whole Blood 91 mg/dL (70-110)
[2022-06-20] MEDS: DIGOXIN 250 MCG/ML 2 ML AMP IVP SCH ×2 (15:38→22:28)
--- NOTE | 2022-06-20 16:45 | P.PN ---
Subjective HISTORY OF PRESENTING ILLNESS Patient is pleasant 66-year-old female with history of coronary artery disease, paroxysmal atrial fibrillation, endometrial cancer, hypothyroidism, previous tobacco abuse who presented for elective CABG. She follows with Dr. Cunningham. He states over last few months she has been noticing increased dyspnea with mild exertion. She denies any lightheadedness or dizziness. She underwent CABG 06/17 with HERNANDEZ to LAD, SVG to OM and ligation of left atrial appendage. She had been doing fairly well overnight however went into A. fib with RVR this morning with heart rates in the 120s to 130s. She denies feeling any more short of breath. Tolerating Afib well with blood pressure stable. 06/19 Patient seen and examined. She denies any chest pain or pressure. She has been on amiodarone drip and converted to sinus rhythm. Denies any pain other than the sternotomy. 06/20 Patient seen and examined. Patient denies any chest pain or pressure. Did have repeat episode of A. fib however converted back into sinus rhythm. Received additional doses of amiodarone. Denies any chest pain other than the incision. No lightheadedness. PHYSICAL EXAMINATION Vital signs reviewed. CONSTITUTIONAL: No apparent distress. HEENT: Head is normocephalic. Pupils are equal, round. Sclerae anicteric. Mucous membranes of the mouth are moist. No JVD. No carotid bruit. CHEST EXAMINATION: Lungs are clear to auscultation. No chest wall tenderness is noted on palpation or with deep breathing. HEART EXAMINATION: Regular rate and rhythm. S1, S2 heard. No murmurs, gallops or rub. ABDOMEN: Soft, nontender. Positive bowel sounds. EXTREMITIES: 2+ peripheral pulses, no lower extremity edema and no calf tenderness. NEUROLOGIC EXAMINATION: Patient is awake, alert and oriented x3. ASSESSMENT 1. CAD status post CABG 06/17 with HERNANDEZ to LAD and SVG to OM 2. History of paroxysmal atrial fibrillation, currently A. fib with RVR 3. Hypothyroidism 4. Hypertension 5. Previous tobacco abuse 6. History of endometrial cancer PLAN Patient has had multiple episodes of A. fib however currently sinus rhythm. Continue amiodarone as well as metoprolol. Continue supportive care. Restart Eliquis when cleared by surgery. Objective - Vital Signs Vital signs: Vital Signs Temp 98.2 F 06/20/22 13:00 Pulse 88 06/20/22 15:53 Resp 27 H 06/20/22 14:04 BP 109/62 06/20/22 14:04 Pulse Ox 94 L 06/20/22 14:04 FiO2 40 06/17/22 19:22 Intake & Output 06/19/22 06/20/22 06/20/22 18:59 06:59 18:59 Intake Total 648 276 92 Output Total 1200 869 445 Balance -552 -593 -353 Weight 75.8 kg Intake: IV 348 276 92 LR 300 240 80 pressure bag 48 36 12 Oral 300 Output: Chest Tube Drainage 80 169 95 LP 50 106 80 Right 30 63 15 Urine 1120 700 350 Other: Voiding Method Bedside Commode Bedside Commode Bedside Commode # Voids 1 ABP, PAP, CO, CI - Last Documented Arterial Blood Pressure 120/46 Pulmonary Artery Pressure 32/15 Cardiac Output 4.5 Cardiac Index 2.5 - Labs CBC & Chem 7: 06/20/22 05:44 06/20/22 05:44 Labs: Abnormal Lab Results - Last 24 Hours (Table) 06/19/22 06/19/22 06/20/22 Range/Units 16:46 20:10 05:44 WBC 14.0 H (3.8-10.6) k/uL RBC 3.10 L (3.80-5.40) m/uL Hgb 9.9 L (11.4-16.0) gm/dL Hct 28.6 L (34.0-46.0) % Plt Count 135 L (150-450) k/uL Neutrophils # 10.2 H (1.3-7.7) k/uL POC Glucose (mg/dL) 121 H 128 H (70-110) mg/dL Calcium (8.4-10.2) mg/dL Total Protein (6.3-8.2) g/dL Albumin (3.5-5.0) g/dL 06/20/22 Range/Units 05:44 WBC (3.8-10.6) k/uL RBC (3.80-5.40) m/uL Hgb (11.4-16.0) gm/dL Hct (34.0-46.0) % Plt Count (150-450) k/uL Neutrophils # (1.3-7.7) k/uL POC Glucose (mg/dL) (70-110) mg/dL Calcium 8.0 L (8.4-10.2) mg/dL Total Protein 5.0 L (6.3-8.2) g/dL Albumin 3.0 L (3.5-5.0) g/dL
[2022-06-20 17:00] LABS: Glucose,Whole Blood 84 mg/dL (70-110)
[2022-06-20 20:27] LABS: Glucose,Whole Blood 130 mg/dL (70-110)
[2022-06-20] MEDS: SENNOSIDES-DOCUSATE SODIUM 1 EACH TAB PO SCH (20:33)
[2022-06-20] MEDS: ATORVASTATIN 80 MG TAB PO SCH (20:33)
--- NOTE | 2022-06-20 23:03 | P.PN ---
Subjective Progress Note Date: 06/19/22 Patient is a 66-year-old female with a known history of atrial fibrillation on anticoagulation with Eliquis, coronary artery disease, hyperlipidemia, GERD, chronic back pain and history of uterine cancer status post hysterectomy and prior history of smoking was admitted to the hospital for elective coronary artery bypass graft. Patient states that she developed chest discomfort about 2 to 3 months ago with minimal activity and underwent stress test which showed reversible ischemia and subsequent cardiac catheterization showed multivessel coronary disease. Patient was seen by CT surgery and recommends CABG. 2D echocardiogram showed ejection fraction 55 to 60%. No pulmonary hypertension. Patient was admitted to the hospital today for elective coronary revascularization procedure. Patient was transferred to ICU postoperatively and was intubated preoperatively. Patient is currently extubated and is sitting State. Complains of soreness in the surgical site. No complaints of chest pain. No nausea vomiting abdominal pain or diarrhea. No cough or sputum production Chest x-ray this morning showed postoperative changes of CABG. Laboratory test showed WBC 17.0 hemoglobin 10.7 and platelets 122 Sodium 137 potassium 4.4 chloride 107 bicarb is 26 BUN 14 and creatinine 0.7 and blood sugar 122 Calcium 8.0 AST 53 ALT 21 alk phos 54 and albumin 3.1 06/19/2022 Patient is currently in MICU. Sitting in the chair. Awake alert and oriented. Requiring oxygen at 2 L via nasal cannula. Mediastinal chest tube was removed today. Chest x-ray showed minimal basilar atelectasis. No evidence of CHF. Patient is using incentive spirometry. Otherwise denied any complaints of chest pain or shortness of breath. No fever no chills. No cough or sputum production. Laboratory pressure WBC 15.1 hemoglobin 9.2 and platelets 96 sodium 132 potassium 4.6 chloride 103 BUN 15 and creatinine 0.77 and blood sugar is 120 and albumin 3.0 Current medications reviewed. Objective - Vital Signs Vital signs: Vital Signs Temp 98.4 F 06/19/22 12:00 Pulse 82 06/19/22 14:00 Resp 24 06/19/22 14:00 BP 113/55 06/19/22 14:00 Pulse Ox 95 06/19/22 14:00 FiO2 40 06/17/22 19:22 Intake & Output 06/18/22 06/19/22 06/19/22 18:59 06:59 18:59 Intake Total 1462.414 982 556 Output Total 515 820 510 Balance 947.414 162 46 Weight 74.1 kg 76.2 kg Intake: IV 121 402 256 LR 330 220 cardiac index 40 pressure bag 81 72 36 Intake, IV Titration 981.414 40 Amount Albumin Human 5% 250 ml 500 In Empty Bag 1 bag @ 250 mls/hr IVPB Q1HR PRN Rx#: [id number] Insulin Regular 100 unit 1.414 In Sodium Chloride 0.9% 100 ml @ Per Protocol IV .Q0M [facility] Rx#:[id number] Lactated Ringers 1,000 ml 430 40 @ 20 mls/hr IV .Q24H [facility] Rx#:[id number] ceFAZolin 2 gm In Sodium 50 Chloride 0.9% 50 ml @ 100 mls/hr IVPB Q8HR [facility] Rx# :[id number] Oral 360 540 300 Output: Chest Tube Drainage 200 250 40 LP 130 200 30 MS 70 50 Right 10 Urine 315 570 470 Other: Voiding Method Indwelling Catheter Indwelling Catheter Indwelling Catheter ABP, PAP, CO, CI - Last Documented Arterial Blood Pressure 120/46 Pulmonary Artery Pressure 32/15 Cardiac Output 4.5 Cardiac Index 2.5 - Exam PHYSICAL EXAMINATION: Patient is lying in the bed comfortably, no acute distress, awake alert and oriented.. HEENT: Normocephalic. Neck is supple. Pupils reactive. Nostrils clear. Oral cavity is moist. Neck reveals no JVD, carotid bruits, or thyromegaly. CHEST EXAMINATION: Trachea is central. Symmetrical expansion. Lung gardiner clear to auscultation and percussion. Sternal incision site is bandaged. thoracic chest tubes in place. CARDIAC: Normal S1, S2 with no gallops. No murmurs ABDOMEN: Soft. Bowel sounds present. Nontender. No organomegaly. No abdominal bruits. Extremities: reveal no edema. No clubbing or cyanosis Neurologically awake, alert, oriented x3 with well-coordinated movements. No focal deficits noted Skin: No rash or skin lesions. Psychiatric: Coperative. Nonsuicidal, Musculoskeletal: No joint swelling or deformity. Normal range of motion. - Labs CBC & Chem 7: 06/20/22 05:44 06/20/22 05:44 Labs: Abnormal Lab Results - Last 24 Hours (Table) 06/18/22 06/18/22 06/19/22 Range/Units 16:31 20:25 04:30 WBC 15.1 H (3.8-10.6) k/uL RBC 2.90 L (3.80-5.40) m/uL Hgb 9.2 L D (11.4-16.0) gm/dL Hct 26.2 L (34.0-46.0) % Plt Count 96 L (150-450) k/uL Neutrophils # 11.9 H (1.3-7.7) k/uL Sodium (137-145) mmol/L Glucose (74-99) mg/dL POC Glucose (mg/dL) 146 H 124 H (70-110) mg/dL Calcium (8.4-10.2) mg/dL AST (14-36) U/L Total Protein (6.3-8.2) g/dL Albumin (3.5-5.0) g/dL 06/19/22 06/19/22 06/19/22 Range/Units 04:30 06:41 11:49 WBC (3.8-10.6) k/uL RBC (3.80-5.40) m/uL Hgb (11.4-16.0) gm/dL Hct (34.0-46.0) % Plt Count (150-450) k/uL Neutrophils # (1.3-7.7) k/uL Sodium 132 L (137-145) mmol/L Glucose 120 H (74-99) mg/dL POC Glucose (mg/dL) 115 H 122 H (70-110) mg/dL Calcium 8.0 L (8.4-10.2) mg/dL AST 40 H (14-36) U/L Total Protein 4.8 L (6.3-8.2) g/dL Albumin 3.0 L (3.5-5.0) g/dL Assessment and Plan Assessment: Coronary artery disease status post CABG. HERNANDEZ to LAD and SVG to OM. Postop day 2. Hypoxemic respiratory failure perioperatively. Currently extubated. On 2 L oxygen via nasal cannula. Paroxysmal atrial fibrillation on anticoagulation with Eliquis Hypothyroidism History of endometrial cancer status post hysterectomy Hyperlipidemia GERD Osteoarthritis Prior history of smoking DVT prophylaxis patient is currently on heparin subcu every 8h Plan: Patient will be continued on telemetry monitoring. Continue with aspirin Plavix and statins and also on metoprolol 25 mg twice daily. Amiodarone changed to p.o. 400 mg twice daily. Encourage incentive spirometry and activity. Continue with GI prophylaxis. Will start back on Eliquis once cleared by CT surgery. Continue insulin sliding scale for better blood sugar control. Further recommendations based on the clinical course.
--- NOTE | 2022-06-20 23:05 | P.PN ---
Subjective Progress Note Date: 06/20/22 Patient is a 66-year-old female with a known history of atrial fibrillation on anticoagulation with Eliquis, coronary artery disease, hyperlipidemia, GERD, chronic back pain and history of uterine cancer status post hysterectomy and prior history of smoking was admitted to the hospital for elective coronary artery bypass graft. Patient states that she developed chest discomfort about 2 to 3 months ago with minimal activity and underwent stress test which showed reversible ischemia and subsequent cardiac catheterization showed multivessel coronary disease. Patient was seen by CT surgery and recommends CABG. 2D echocardiogram showed ejection fraction 55 to 60%. No pulmonary hypertension. Patient was admitted to the hospital today for elective coronary revascularization procedure. Patient was transferred to ICU postoperatively and was intubated preoperatively. Patient is currently extubated and is sitting State. Complains of soreness in the surgical site. No complaints of chest pain. No nausea vomiting abdominal pain or diarrhea. No cough or sputum production Chest x-ray this morning showed postoperative changes of CABG. Laboratory test showed WBC 17.0 hemoglobin 10.7 and platelets 122 Sodium 137 potassium 4.4 chloride 107 bicarb is 26 BUN 14 and creatinine 0.7 and blood sugar 122 Calcium 8.0 AST 53 ALT 21 alk phos 54 and albumin 3.1 06/19/2022 Patient is currently in MICU. Sitting in the chair. Awake alert and oriented. Requiring oxygen at 2 L via nasal cannula. Mediastinal chest tube was removed today. Chest x-ray showed minimal basilar atelectasis. No evidence of CHF. Patient is using incentive spirometry. Otherwise denied any complaints of chest pain or shortness of breath. No fever no chills. No cough or sputum production. Laboratory pressure WBC 15.1 hemoglobin 9.2 and platelets 96 sodium 132 potassium 4.6 chloride 103 BUN 15 and creatinine 0.77 and blood sugar is 120 and albumin 3.0 06/20/2022 Patient is currently sitting in the recliner. Awake alert and oriented x3. Patient converted to A. fib last night and did receive amiodarone bolus. Lo pressor was added. Cardiology is on board. Currently requiring oxygen at 2 L via nasal cannula. No chest pain or shortness of breath. No nausea vomiting abdominal pain or diarrhea. Chest x-ray showed postoperative changes of CABG. Chest tube was removed today. Laboratory test showed WBC 14.0 hemoglobin 9.9 and platelets 135 sodium 138 potassium 4.3 chloride 105 bicarb is 30 BUN 49 creatinine 0.84 and albumin 3.0. Cardiology and pulmonary is on board. Current medications reviewed. Objective - Vital Signs Vital signs: Vital Signs Temp 98.2 F 06/20/22 13:00 Pulse 88 06/20/22 15:53 Resp 27 H 06/20/22 14:04 BP 109/62 06/20/22 14:04 Pulse Ox 94 L 06/20/22 14:04 FiO2 40 06/17/22 19:22 Intake & Output 06/19/22 06/20/22 06/20/22 18:59 06:59 18:59 Intake Total 648 276 92 Output Total 1200 869 445 Balance -552 -593 -353 Weight 75.8 kg Intake: IV 348 276 92 LR 300 240 80 pressure bag 48 36 12 Oral 300 Output: Chest Tube Drainage 80 169 95 LP 50 106 80 Right 30 63 15 Urine 1120 700 350 Other: Voiding Method Bedside Commode Bedside Commode Bedside Commode # Voids 1 ABP, PAP, CO, CI - Last Documented Arterial Blood Pressure 120/46 Pulmonary Artery Pressure 32/15 Cardiac Output 4.5 Cardiac Index 2.5 - Exam PHYSICAL EXAMINATION: Patient is lying in the bed comfortably, no acute distress, awake alert and oriented.. HEENT: Normocephalic. Neck is supple. Pupils reactive. Nostrils clear. Oral cavity is moist. Neck reveals no JVD, carotid bruits, or thyromegaly. CHEST EXAMINATION: Trachea is central. Symmetrical expansion. Lung gardiner clear to auscultation and percussion. Sternal incision site is bandaged. thoracic chest tubes in place. CARDIAC: Normal S1, S2 with no gallops. No murmurs ABDOMEN: Soft. Bowel sounds present. Nontender. No organomegaly. No abdominal bruits. Extremities: reveal no edema. No clubbing or cyanosis Neurologically awake, alert, oriented x3 with well-coordinated movements. No focal deficits noted Skin: No rash or skin lesions. Psychiatric: Coperative. Nonsuicidal, Musculoskeletal: No joint swelling or deformity. Normal range of motion. - Labs CBC & Chem 7: 06/20/22 05:44 06/20/22 05:44 Labs: Abnormal Lab Results - Last 24 Hours (Table) 06/19/22 06/19/22 06/20/22 Range/Units 16:46 20:10 05:44 WBC 14.0 H (3.8-10.6) k/uL RBC 3.10 L (3.80-5.40) m/uL Hgb 9.9 L (11.4-16.0) gm/dL Hct 28.6 L (34.0-46.0) % Plt Count 135 L (150-450) k/uL Neutrophils # 10.2 H (1.3-7.7) k/uL POC Glucose (mg/dL) 121 H 128 H (70-110) mg/dL Calcium (8.4-10.2) mg/dL Total Protein (6.3-8.2) g/dL Albumin (3.5-5.0) g/dL 06/20/22 Range/Units 05:44 WBC (3.8-10.6) k/uL RBC (3.80-5.40) m/uL Hgb (11.4-16.0) gm/dL Hct (34.0-46.0) % Plt Count (150-450) k/uL Neutrophils # (1.3-7.7) k/uL POC Glucose (mg/dL) (70-110) mg/dL Calcium 8.0 L (8.4-10.2) mg/dL Total Protein 5.0 L (6.3-8.2) g/dL Albumin 3.0 L (3.5-5.0) g/dL Assessment and Plan Assessment: Coronary artery disease status post CABG. HERNANDEZ to LAD and SVG to OM. Postop day 3. Hypoxemic respiratory failure perioperatively. Currently extubated. On 2 L oxygen via nasal cannula. Paroxysmal atrial fibrillation on anticoagulation with Eliquis Hypothyroidism History of endometrial cancer status post hysterectomy Hyperlipidemia GERD Osteoarthritis Prior history of smoking DVT prophylaxis patient is currently on heparin subcu every 8h Plan: Patient will be continued on telemetry monitoring. Continue with aspirin Plavix and statins and also on metoprolol 25 mg twice daily. Amiodarone changed to p.o. 400 mg twice daily. Encourage incentive spirometry and activity. Continue with GI prophylaxis. Will start back on Eliquis once cleared by CT surgery. Continue insulin sliding scale for better blood sugar control. Further recommendations based on the clinical course. Time with Patient: Greater than 30
[2022-06-20] MEDS: MELATONIN 3 MG TABLET PO SCH (23:39)
[2022-06-21] MEDS: HYDROcodone/APAP 5-325MG 1 EACH TAB PO PRN ×3 (04:08→16:36)
[2022-06-21] MEDS: DIGOXIN 250 MCG/ML 2 ML AMP IVP SCH (04:08)
[2022-06-21] MEDS: IPRATROPIUM-ALBUTEROL 3 ML NEB INHALATION SCH ×4 (04:59→19:40)
[2022-06-21 05:53] LABS: Glucose,Whole Blood 97 mg/dL (70-110)
[2022-06-21] MEDS: INSULIN ASPART (NovoLOG) 100 UNIT/ML VIAL SQ SCH ×4 (06:18→20:53)
[2022-06-21] MEDS: KETOROLAC 15 MG/ML 1 ML VIAL IVP SCH ×4 (06:29→23:34)
[2022-06-21] MEDS: PANTOPRAZOLE 40 MG TABLET PO SCH (06:29)
[2022-06-21] MEDS: LEVOTHYROXINE 25 MCG TAB PO SCH (06:29)
--- NOTE | 2022-06-21 06:56 | XR ---
EXAMINATION TYPE: XR chest 1V portable DATE OF EXAM: 06/21/2022 CLINICAL HISTORY: Difficulty breathing progress study. Post cardiac surgery. TECHNIQUE: Single AP portable upright view of the chest is obtained. COMPARISON: Chest x-ray from one day earlier and older studies. FINDINGS: Interval removal of right-sided chest tube and right internal jugular Cordis sheath. Left- sided chest tube remains present. Overlying sternal wires and mediastinal clips along with left atria l appendage clip are all redemonstrated. Cardiac silhouette size stable and within normal limits. Left greater than right bibasilar opacities remain present. No pneumothorax is seen. Osseous structures are intact. IMPRESSION: Interval removal of right-sided chest tube. No pneumothorax evident. Stable left-sided ch est tube without pneumothorax. Stable left greater than right bilateral lower lung acute infiltrates and/or atelectasis.
--- NOTE | 2022-06-21 07:11 | P.PN ---
Subjective Progress Note Date: 06/21/22 Principal diagnosis: Coronary artery disease, stable angina. Previous medical history of hyperlipidemia, paroxysmal atrial fibrillation, hypothyroid, endometrial cancer, previous tobacco dependence POD #4 coronary artery bypass grafting 2 vessels, left internal mammary artery to the left anterior descending artery, reverse saphenous vein graft to the obtuse marginal artery, endoscopic harvesting of the right greater saphenous vein, ligation of the left atrial appendage using a 35 mm AtriClip, pulmonary vein isolation, epi-aortic ultrasound, intraoperative transesophageal echocardiogram Postoperative acute blood loss anemia and thrombocytopenia, expected given hemodilution and cardiopulmonary bypass pump Atrial fibrillation, known comment occurrence after open heart surgery especially with history of paroxysmal atrial fibrillation, not a complication The patient was seen and examined this morning sitting up in a recliner on the intensive care unit in no acute distress. Converted back to NSR yesterday after initiation of digoxin. Currently in sinus rhythm and hemodynamically stable. States post surgical pain is mostly controlled with current medication regimen, denies shortness of breath, states back spasms are better since removal of right pleural chest tube. She is currently on 2 L nasal cannula with oxygen saturation in the mid 90s, off oxygen her saturations are 92%. Lab work and chest x-ray reviewed. Left pleural chest tube, ventricular epicardial wire remain present. She has ambulated in the hallway several times. No other new concerns. Objective - Vital Signs Vital signs: Vital Signs Temp 98.2 F 06/21/22 04:00 Pulse 93 06/21/22 06:00 Resp 18 06/21/22 06:00 BP 101/50 06/21/22 06:00 Pulse Ox 90 L 06/21/22 06:00 FiO2 40 06/17/22 19:22 Intake & Output 06/20/22 06/21/22 06/21/22 18:59 06:59 18:59 Intake Total 92 1080 Output Total 670 460 Balance -578 620 Weight 75.8 kg Intake: IV 92 LR 80 pressure bag 12 Oral 1080 Output: Chest Tube Drainage 95 60 LP 80 60 Right 15 Urine 575 400 Other: Voiding Method Bedside Commode Bedside Commode # Voids 1 ABP, PAP, CO, CI - Last Documented Arterial Blood Pressure 120/46 Pulmonary Artery Pressure 32/15 Cardiac Output 4.5 Cardiac Index 2.5 - Exam CONSTITUTIONAL: Appears comfortable, cooperative, no acute distress RESPIRATORY: Lungs sounds diminished bilaterally. Respirations even, nonlabored. Currently on 2 L nasal cannula with oxygen saturation 97%, on room air 92%. Able to achieve 750 mL on incentive spirometry. Stronger cough CARDIOVASCULAR: S1, S2 present. Regular rate and rhythm, sinus rhythm on telemetry. Sternum stable. Palpable peripheral pulses bilaterally. Trace generalized edema present. No calf pain or tenderness noted. Heart hugger in place with patient demonstrating appropriate use. Antiembolism stockings, SCDs present. GASTROINTESTINAL: Abdomen soft, nontender, nondistended. Active bowel sounds present 4 quadrants. Tolerating diet. Positive flatus GENITOURINARY: Continues to void clear, yellow urine INTEGUMENTARY: Skin is warm and dry with evidence of good perfusion. Anterior chest incision well approximated and covered with dry intact dressing. Right lower extremity EVH site well approximated without redness or drainage. NEUROLOGIC: Cranial nerves II through XII intact MUSKULOSKELETAL: Able to move all extremities, strength equal bilaterally, gait normal PSYCHIATRIC: Alert and oriented to person place and time, appropriate affect, intact judgment and insight INVASIVE LINES AND TUBES: Left pleural chest tube present and connected to wall suction, no air leaks present, 40 mL serosanguineous drainage overnight, 100 mL in the last 24 hours. Ventricular epicardial pacemaker wire present, grounded. - Allied health notes Allied health notes reviewed: nursing - Labs CBC & Chem 7: 06/20/22 05:44 06/20/22 05:44 Labs: Abnormal Lab Results - Last 24 Hours (Table) 06/20/22 Range/Units 20:25 POC Glucose (mg/dL) 130 H (70-110) mg/dL - Imaging and Cardiology Chest x-ray: report reviewed, image reviewed Assessment and Plan Assessment: 1. Coronary artery disease, stable angina, status post 2 vessel CABG 2. Preserved left ventricular systolic function, EF 55-60% 3. History of hyperlipidemia, treated, cholesterol 208, LDL 129 4. Paroxysmal atrial fibrillation, on Eliquis outpatient, status post pulmonary vein isolation and left atrial appendage ligation 5. Hypothyroid, preoperative TSH 4.289 6. History of endometrial cancer 7. Previous tobacco dependence, preoperative FEV1 110% of predicted 8. Postoperative acute blood loss anemia and thrombocytopenia, expected 9. Atrial fibrillation, known comment occurrence after open heart surgery especially with history of paroxysmal atrial fibrillation, not a complication Plan: 1. Continue to maximize medical therapy with aspirin, statin, Plavix, beta b locker therapy. Will increase beta wendy therapy as tolerated by blood pressure 2. Continue amiodarone. Patient will be discharged home on her outpatient dose of Eliquis, no anticoagulation until all tubes/wires discontinued. Will add digoxin for better rate control 3. Wean O2 as tolerated. Encourage incentive spirometry 10 times every hour while awake. Bronchodilators per pulmonology 4. Increase activity, ambulate as tolerated. PT/OT/cardiac rehab following 5. Will monitor daily labs and x-rays. Electrolyte replacement per protocol. 6. GI/DVT prophylaxis 7. Pain control with current medication regimen 8. Insulin management per primary care service. Patient is not diabetic, preoperative hemoglobin A1c 5.5% 9. Will discontinue epicardial wire today, patient to remain on bedrest for 1 hour post wire removal 10. Will discontinue left chest tube 11. Strict accurate intake and output 12. Will place transfer orders for 3S. cardiac stepdown unit, may transfer when bed available 13. More recommendations to follow
[2022-06-21] MEDS: HEPARIN SODIUM,PORCINE/PF 5,000 UNIT/0.5 ML SYRINGE SQ SCH ×3 (07:55→23:33)
[2022-06-21] MEDS: METOPROLOL TARTRATE 25 MG TAB PO SCH ×3 (07:55→23:35)
[2022-06-21] MEDS: ZINC SULFATE 220 MG CAP PO SCH (08:01)
[2022-06-21] MEDS: VITAMIN E (DL,TOCOPHERYL ACET) 400 UNIT (180 MG) CAP PO SCH (08:01)
[2022-06-21] MEDS: CHOLECALCIFEROL 125 MCG (5000 IU) TABLET PO SCH (08:01)
[2022-06-21] MEDS: AMIODARONE 200 MG TAB PO SCH ×2 (09:21→21:38)
[2022-06-21 09:22] LABS: Calcium 7.9 mg/dL (8.4-10.2); HCT 25.2 % (34.0-46.0); HGB 8.7 gm/dL (11.4-16.0); MCH 32.2 pg (25.0-35.0); MCHC 34.4 g/dL (31.0-37.0); MCV 93.5 fL (80.0-100.0); Platelet Count 153 k/uL (150-450); Potassium 4.8 mmol/L (3.5-5.1); RBC 2.69 m/uL (3.80-5.40); RDW 13.2 % (11.5-15.5); WBC 9.2 k/uL (3.8-10.6)
[2022-06-21] MEDS: ASPIRIN 325 MG TAB PO SCH (09:22)
[2022-06-21] MEDS: CLOPIDOGREL 75 MG TAB PO SCH (09:22)
--- NOTE | 2022-06-21 10:34 | P.PN ---
Subjective Progress Note Date: 06/21/22 Principal diagnosis: Coronary artery bypass grafting 2 vessels, left internal mammary artery to the left anterior descending artery, reverse saphenous vein graft to the obtuse mar ginal artery, endoscopic harvesting of the right greater saphenous vein, ligation of the left atrial appendage using a 35 mm AtriClip, pulmonary vein isolation, epi-aortic ultrasound, intraoperative transesophageal echocardiogram The patient is seen today 06/21/2022 in follow-up in the intensive care unit. She is currently sitting up in a chair at the bedside. Awake and alert in no acute distress. She is maintaining good O2 saturations in the 90s on room air. She continues to work with the incentive spirometer. Chest x-ray shows basilar atelectasis. Left pleural chest tube and ventricular epicardial wires remain in place. No IV fluids. She is currently in sinus rhythm. White count 9.2. Hemoglobin 8.7. Platelets 153. Sodium 136. Potassium 4.8. BUN 14. Creatinine 0.87. Glucose 117. She is continued on DuoNeb inhalations heparin for DVT prophylaxis. Eliquis to be resumed tomorrow. Objective - Vital Signs Vital signs: Vital Signs Temp 98.5 F 06/21/22 08:00 Pulse 85 06/21/22 09:00 Resp 15 06/21/22 09:00 BP 103/56 06/21/22 09:00 Pulse Ox 90 L 06/21/22 09:00 FiO2 40 06/17/22 19:22 Intake & Output 06/20/22 06/21/22 06/21/22 18:59 06:59 18:59 Intake Total 92 1080 Output Total 670 460 125 Balance -578 620 -125 Weight 75.8 kg Intake: IV 92 LR 80 pressure bag 12 Oral 1080 Output: Chest Tube Drainage 95 60 0 LP 80 60 0 Right 15 Urine 575 400 125 Other: Voiding Method Bedside Commode Bedside Commode Bedside Commode # Voids 1 ABP, PAP, CO, CI - Last Documented Arterial Blood Pressure 120/46 Pulmonary Artery Pressure 32/15 Cardiac Output 4.5 Cardiac Index 2.5 - Exam GENERAL EXAM: Alert, pleasant 66-year-old female, on room air, up in a chair, comfortable in no apparent distress. HEAD: Normocephalic. EYES: Normal reaction of pupils, equal size. NOSE: Clear with pink turbinates. THROAT: No erythema or exudates. NECK: No masses, no JVD. CHEST: Heart hugger in place. Sternal dressing dry and intact. Left-sided chest tube remains in place, pacer wires in place. LUNGS: Equal air entry with faint crackles in the posterior bases. CVS: S1 and S2 normal with no audible murmur, regular rhythm. ABDOMEN: No hepatosplenomegaly, normal bowel sounds, no guarding or rigidity. SPINE: No scoliosis or deformity SKIN: No rashes CENTRAL NERVOUS SYSTEM: No focal deficits, tone is normal in all 4 extremities. EXTREMITIES: There is no peripheral edema. No clubbing, no cyanosis. Peripheral pulses are intact. - Labs CBC & Chem 7: 06/21/22 08:24 06/21/22 08:24 Labs: Abnormal Lab Results - Last 24 Hours (Table) 06/20/22 06/21/22 06/21/22 Range/Units 20:25 08:24 08:24 RBC 2.69 L (3.80-5.40) m/uL Hgb 8.7 L (11.4-16.0) gm/dL Hct 25.2 L (34.0-46.0) % Sodium 136 L (137-145) mmol/L Glucose 117 H (74-99) mg/dL POC Glucose (mg/dL) 130 H (70-110) mg/dL Calcium 7.9 L (8.4-10.2) mg/dL Assessment and Plan Assessment: Coronary artery disease status post coronary artery bypass grafting utilizing a HERNANDEZ to the LAD, SVG to OM. Postoperative day #4 Hypoxemic respiratory failure secondary to above, expected outcome. Recovered and on room air History of paroxysmal atrial fibrillation, anticoagulated with Eliquis, currently on hold Hyperlipidemia Hypothyroidism History of endometrial cancer with previous hysterectomy Arthritis History of chronic tobacco dependence Plan: The patient was seen and evaluated Chest x-ray, medications and labs reviewed Currently stable and on room air Encouraged increased use of the incentive spirometer Continue the current treatment plan We will continue to follow I have personally seen and examined the patient, performed the documentation and the assessment and plan as written. Number of minutes spent on the visit: 10.
--- NOTE | 2022-06-21 10:48 | P.PN ---
Subjective Patient is a 66-year-old female with a known history of atrial fibrillation on anticoagulation with Eliquis, coronary artery disease, hyperlipidemia, GERD, chronic back pain and history of uterine cancer status post hysterectomy and prior history of smoking was admitted to the hospital for elective coronary artery bypass graft. Patient states that she developed chest discomfort about 2 to 3 months ago with minimal activity and underwent stress test which showed reversible ischemia and subsequent cardiac catheterization showed multivessel co ronary disease. Patient was seen by CT surgery and recommends CABG. 2D echocardiogram showed ejection fraction 55 to 60%. No pulmonary hypertension. Patient was admitted to the hospital today for elective coronary revascularization procedure. Patient was transferred to ICU postoperatively and was intubated preoperatively. Patient is currently extubated and is sitting State. Complains of soreness in the surgical site. No complaints of chest pain. No nausea vomiting abdominal pain or diarrhea. No cough or sputum production Chest x-ray this morning showed postoperative changes of CABG. Laboratory test showed WBC 17.0 hemoglobin 10.7 and platelets 122 Sodium 137 potassium 4.4 chloride 107 bicarb is 26 BUN 14 and creatinine 0.7 and blood sugar 122 Calcium 8.0 AST 53 ALT 21 alk phos 54 and albumin 3.1 06/19/2022 Patient is currently in MICU. Sitting in the chair. Awake alert and oriented. Requiring oxygen at 2 L via nasal cannula. Mediastinal chest tube was removed today. Chest x-ray showed minimal basilar atelectasis. No evidence of CHF. Patient is using incentive spirometry. Otherwise denied any complaints of chest pain or shortness of breath. No fever no chills. No cough or sputum production. Laboratory pressure WBC 15.1 hemoglobin 9.2 and platelets 96 sodium 132 potassium 4.6 chloride 103 BUN 15 and creatinine 0.77 and blood sugar is 120 and albumin 3.0 06/20/2022 Patient is currently sitting in the recliner. Awake alert and oriented x3. Patient converted to A. fib last night and did receive amiodarone bolus. Lopressor was added. Cardiology is on board. Currently requiring oxygen at 2 L via nasal cannula. No chest pain or shortness of breath. No nausea vomiting abdominal pain or diarrhea. Chest x-ray showed postoperative changes of CABG. Chest tube was removed today. Laboratory test showed WBC 14.0 hemoglobin 9.9 and platelets 135 sodium 138 potassium 4.3 chloride 105 bicarb is 30 BUN 49 creatinine 0.84 and albumin 3.0. Cardiology and pulmonary is on board. 06/21/2022 Patient denies any other signs and symptoms. Vitals are stable. Patient's heart rate 90% room air Chest x-rays showed removal of the right chest tube, stable left chest tube, bilateral lower lobe infiltrates versus atelectasis. Eliquis started today Patient is not on antibiotics Objective - Vital Signs Vital signs: Vital Signs Temp 98.5 F 06/21/22 08:00 Pulse 85 06/21/22 09:00 Resp 15 06/21/22 09:00 BP 103/56 06/21/22 09:00 Pulse Ox 90 L 06/21/22 09:00 FiO2 40 06/17/22 19:22 Intake & Output 06/20/22 06/21/22 06/21/22 18:59 06:59 18:59 Intake Total 92 1080 Output Total 670 460 125 Balance -578 620 -125 Weight 75.8 kg Intake: IV 92 LR 80 pressure bag 12 Oral 1080 Output: Chest Tube Drainage 95 60 0 LP 80 60 0 Right 15 Urine 575 400 125 Other: Voiding Method Bedside Commode Bedside Commode Bedside Commode # Voids 1 ABP, PAP, CO, CI - Last Documented Arterial Blood Pressure 120/46 Pulmonary Artery Pressure 32/15 Cardiac Output 4.5 Cardiac Index 2.5 - Exam GENERAL: The patient is alert and oriented x3, not in any acute distress. Well developed, well nourished. HEENT: Pupils are round and equally reacting to light. EOMI. No scleral icterus. No conjunctival pallor. Normocephalic, atraumatic. No pharyngeal erythema. No thyromegaly. -CARDIOVASCULAR: S1 and S2 present. No murmurs, rubs, or gallops. Left side Chest Tube PULMONARY: Chest is clear to auscultation, no wheezing or crackles. ABDOMEN: Soft, nontender, nondistended, normoactive bowel sounds. No palpable organomegaly. MUSCULOSKELETAL: No joint swelling or deformity. EXTREMITIES: No cyanosis, clubbing, or pedal edema. NEUROLOGICAL: Gross neurological examination did not reveal any focal deficits. SKIN: No rashes. no petechiae. - Labs CBC & Chem 7: 06/21/22 08:24 06/21/22 08:24 Labs: Abnormal Lab Results - Last 24 Hours (Table) 06/20/22 06/21/22 06/21/22 Range/Units 20:25 08:24 08:24 RBC 2.69 L (3.80-5.40) m/uL Hgb 8.7 L (11.4-16.0) gm/dL Hct 25.2 L (34.0-46.0) % Sodium 136 L (137-145) mmol/L Glucose 117 H (74-99) mg/dL POC Glucose (mg/dL) 130 H (70-110) mg/dL Calcium 7.9 L (8.4-10.2) mg/dL Assessment and Plan Assessment: Coronary artery disease status post CABG. HERNANDEZ to LAD and SVG to OM. Postop day 3. Hypoxemic respiratory failure perioperatively. Currently extubated. On 2 L oxygen via nasal cannula. Paroxysmal atrial fibrillation on anticoagulation with Eliquis Hypothyroidism History of endometrial cancer status post hysterectomy Hyperlipidemia GERD Osteoarthritis Prior history of smoking DVT prophylaxis patient is currently on heparin subcu every 8h Plan: Continue with the Eliquis blood thinner Patient will be continued on telemetry monitoring. Continue with aspirin Plavix and statins and also on metoprolol 25 mg twice daily. Amiodarone changed to p.o. 400 mg twice daily. Encourage incentive spirometry and activity. Continue with GI prophylaxis. Continue insulin sliding scale for better blood sugar control. Further recommendations based on the clinical course.
[2022-06-21] MEDS ORDERED: DIGOXIN 125 MCG TAB PO SCH (11:15)
[2022-06-21 12:11] LABS: Glucose,Whole Blood 120 mg/dL (70-110)
--- NOTE | 2022-06-21 12:11 | PN ---
PROGRESS NOTE SUBJECTIVE: Mrs. Olive Pizano is status post bypass surgery. She is maintaining sinus rhythm, but has been in and out of atrial fibrillation. She is on oral amiodarone and beta wendy, also received some digoxin. However, she is in sinus rhythm, hemodynamically stable, doing fairly well with incentive spirometry. I would recommend that we continue incentive spirometry, pulmonary toilet, and she should be discharged with a combination of beta wendy, amiodarone, and Eliquis. OBJECTIVE: VITAL SIGNS: Stable. HEART: S1, S2 heard normally. Short systolic murmur at the left sternal border. LUNGS: Reveal fair air entry. ABDOMEN: Exam unchanged. LOWER EXTREMITIES: Exam unchanged. Prognosis remains fair. MMODL / IJN: [id number] /
[2022-06-21 16:37] LABS: Glucose,Whole Blood 92 mg/dL (70-110)
[2022-06-21 20:16] LABS: Glucose,Whole Blood 138 mg/dL (70-110)
[2022-06-21] MEDS: SENNOSIDES-DOCUSATE SODIUM 1 EACH TAB PO SCH (21:37)
[2022-06-21] MEDS: ATORVASTATIN 80 MG TAB PO SCH (21:37)
[2022-06-21] MEDS: MELATONIN 3 MG TABLET PO SCH (21:38)
[2022-06-21] MEDS: ACETAMINOPHEN TAB 325 MG TAB PO PRN (21:42)
[2022-06-22 06:09] LABS: Glucose,Whole Blood 96 mg/dL (70-110)
[2022-06-22] MEDS: INSULIN ASPART (NovoLOG) 100 UNIT/ML VIAL SQ SCH ×4 (06:24→20:46)
[2022-06-22] MEDS: PANTOPRAZOLE 40 MG TABLET PO SCH (06:24)
[2022-06-22] MEDS: KETOROLAC 15 MG/ML 1 ML VIAL IVP SCH (06:24)
[2022-06-22] MEDS: LEVOTHYROXINE 25 MCG TAB PO SCH (06:24)
--- NOTE | 2022-06-22 06:54 | XR ---
EXAMINATION TYPE: XR chest 2V DATE OF EXAM: 06/22/2022 6:19 AM COMPARISON: Chest radiographs from 06/21/2022. TECHNIQUE: XR chest 2V Frontal and lateral views of the chest. CLINICAL INDICATION:Female, 66 years old with history of post cardiac surgery; FINDINGS: Lungs/Pleura: Decreased trace bilateral pleural effusions. Left basilar opacities remain present. No pneumothorax. Heart/mediastinum: Cardiomediastinal silhouette is stable and within normal limits. Mediastinal clip s along with left atrial appendage clip are redemonstrated. Musculoskeletal: No acute osseous pathology. Midline sternotomy wires are noted and stable. Lines/Tubes: Interval removal of left-sided chest tube. IMPRESSION: 1. Interval removal of left-sided chest tube. 2. Stable left basilar patchy airspace opacities which may represent infiltrates and/or atelectasis. 3. Decreased trace bilateral pleural effusions.
[2022-06-22 07:54] LABS: Calcium 7.8 mg/dL (8.4-10.2); Potassium 4.7 mmol/L (3.5-5.1)
[2022-06-22 07:56] LABS: HCT 27.4 % (34.0-46.0); HGB 9.1 gm/dL (11.4-16.0); MCH 30.8 pg (25.0-35.0); MCHC 33.3 g/dL (31.0-37.0); MCV 92.4 fL (80.0-100.0); Mean Platelet Volume 8.9; Platelet Count 198 k/uL (150-450); RBC 2.96 m/uL (3.80-5.40); WBC 8.7 k/uL (3.8-10.6)
[2022-06-22] MEDS: IPRATROPIUM-ALBUTEROL 3 ML NEB INHALATION SCH ×4 (08:25→19:28)
--- NOTE | 2022-06-22 09:24 | P.PN ---
Subjective Progress Note Date: 06/22/22 Principal diagnosis: Coronary artery disease, stable angina. Previous medical history of hyperlipidemia, paroxysmal atrial fibrillation, hypothyroid, endometrial cancer, previous tobacco dependence POD #5 coronary artery bypass grafting 2 vessels, left internal mammary artery to the left anterior descending artery, reverse saphenous vein graft to the obtuse marginal artery, endoscopic harvesting of the right greater saphenous vein, ligation of the left atrial appendage using a 35 mm AtriClip, pulmonary vein isolation, epi-aortic ultrasound, intraoperative transesophageal echocardiogram Postoperative acute blood loss anemia and thrombocytopenia, expected given hemodilution and cardiopulmonary bypass pump Atrial fibrillation, known comment occurrence after open heart surgery especially with history of paroxysmal atrial fibrillation, not a complication The patient was seen and examined this morning sitting up in a recliner on the cardiac stepdown unit in no acute distress. Remains in sinus rhythm and hemodynamically stable. States post surgical pain is mostly controlled with current medication regimen, denies shortness of breath. She is currently on room air with oxygen saturation in the mid 90s. Lab work and chest x-ray reviewed. She has ambulated in the hallway several times. No other new concerns. Objective - Vital Signs Vital signs: Vital Signs Temp 98.6 F 06/22/22 04:00 Pulse 84 06/22/22 08:35 Resp 16 06/22/22 08:35 BP 121/58 06/22/22 04:00 Pulse Ox 95 06/22/22 08:25 FiO2 40 06/17/22 19:22 Intake & Output 06/21/22 06/22/22 06/22/22 18:59 06:59 18:59 Intake Total 20 100 0 Output Total 125 800 Balance -105 -700 0 Weight 75.9 kg Intake: IV 20 Invasive Line 5 10 Invasive Line 6 10 Oral 100 0 Output: Chest Tube Drainage 0 LP 0 Urine 125 800 Other: Voiding Method Bedside Commode Toilet # Voids 1 ABP, PAP, CO, CI - Last Documented Arterial Blood Pressure 120/46 Pulmonary Artery Pressure 32/15 Cardiac Output 4.5 Cardiac Index 2.5 - Exam CONSTITUTIONAL: Appears comfortable, cooperative, no acute distress RESPIRATORY: Lungs sounds diminished bilaterally. Respirations even, nonlab ored. Currently on room air with oxygen saturation 93%. Able to achieve 1000 mL on incentive spirometry. Stronger cough CARDIOVASCULAR: S1, S2 present. Regular rate and rhythm, sinus rhythm on telemetry. Sternum stable. Palpable peripheral pulses bilaterally. Trace generalized edema present. No calf pain or tenderness noted. Heart hugger in place with patient demonstrating appropriate use. Antiembolism stockings, SCDs present. GASTROINTESTINAL: Abdomen soft, nontender, nondistended. Active bowel sounds present 4 quadrants. Tolerating diet. Positive flatus negative bowel movement yet GENITOURINARY: Continues to void clear, yellow urine INTEGUMENTARY: Skin is warm and dry with evidence of good perfusion. Anterior chest incision well approximated and covered with dry intact dressing. Right lower extremity EVH site well approximated without redness or drainage. NEUROLOGIC: Cranial nerves II through XII intact MUSKULOSKELETAL: Able to move all extremities, strength equal bilaterally, gait normal PSYCHIATRIC: Alert and oriented to person place and time, appropriate affect, intact judgment and insight - Allied health notes Allied health notes reviewed: nursing - Labs CBC & Chem 7: 06/22/22 07:11 06/22/22 07:11 Labs: Abnormal Lab Results - Last 24 Hours (Table) 06/21/22 06/21/22 06/21/22 Range/Units 08:24 08:24 12:09 RBC 2.69 L (3.80-5.40) m/uL Hgb 8.7 L (11.4-16.0) gm/dL Hct 25.2 L (34.0-46.0) % Sodium 136 L (137-145) mmol/L Chloride (98-107) mmol/L Glucose 117 H (74-99) mg/dL POC Glucose (mg/dL) 120 H (70-110) mg/dL Calcium 7.9 L (8.4-10.2) mg/dL 06/21/22 06/22/22 06/22/22 Range/Units 20:14 07:11 07:11 RBC 2.96 L (3.80-5.40) m/uL Hgb 9.1 L (11.4-16.0) gm/dL Hct 27.4 L (34.0-46.0) % Sodium (137-145) mmol/L Chloride 108 H (98-107) mmol/L Glucose 100 H (74-99) mg/dL POC Glucose (mg/dL) 138 H (70-110) mg/dL Calcium 7.8 L (8.4-10.2) mg/dL - Imaging and Cardiology Chest x-ray: report reviewed, image reviewed Assessment and Plan Assessment: 1. Coronary artery disease, stable angina, status post 2 vessel CABG 2. Preserved left ventricular systolic function, EF 55-60% 3. History of hyperlipidemia, treated, cholesterol 208, LDL 129 4. Paroxysmal atrial fibrillation, on Eliquis outpatient, status post pulmonary vein isolation and left atrial appendage ligation 5. Hypothyroid, preoperative TSH 4.289 6. History of endometrial cancer 7. Previous tobacco dependence, preoperative FEV1 110% of predicted 8. Postoperative acute blood loss anemia and thrombocytopenia, expected 9. Atrial fibrillation, known comment occurrence after open heart surgery especially with history of paroxysmal atrial fibrillation, not a complication Plan: 1. Continue to maximize medical therapy with aspirin, statin, beta wendy therapy. Will increase beta wendy therapy as tolerated 2. Continue amiodarone. Eliquis initiated today 3. Encourage incentive spirometry 10 times every hour while awake. Bronchodilators per pulmonology 4. Increase activity, ambulate as tolerated. PT/OT/cardiac rehab following 5. Will monitor daily labs and x-rays. Electrolyte replacement per protocol. 6. GI/DVT prophylaxis 7. Pain control with current medication regimen 8. Insulin management per primary care service. Patient is not diabetic, preoperative hemoglobin A1c 5.5% 9. Strict accurate intake and output, daily weights 10. Milk of magnesia today, if no bowel movement by noon suppository should be given 11. Discharge planning in progress. Anticipate discharge to home with home care later today versus tomorrow morning 12. More recommendations to follow
[2022-06-22] MEDS: AMIODARONE 200 MG TAB PO SCH ×2 (09:36→21:38)
[2022-06-22] MEDS: ASPIRIN 81 MG PO SCH (09:36)
[2022-06-22] MEDS: MAGNESIUM HYDROXIDE 2,400 MG/10 ML CUP PO PRN (09:36)
[2022-06-22] MEDS: ZINC SULFATE 220 MG CAP PO SCH (09:36)
[2022-06-22] MEDS: METOPROLOL TARTRATE 25 MG TAB PO SCH ×3 (09:37→23:50)
[2022-06-22] MEDS: VITAMIN E (DL,TOCOPHERYL ACET) 400 UNIT (180 MG) CAP PO SCH (09:37)
[2022-06-22] MEDS: APIXABAN 5 MG TAB PO SCH ×2 (09:37→21:38)
[2022-06-22] MEDS: CHOLECALCIFEROL 125 MCG (5000 IU) TABLET PO SCH (09:37)
[2022-06-22] MEDS: ACETAMINOPHEN TAB 325 MG TAB PO PRN (09:38)
--- NOTE | 2022-06-22 10:01 | P.PN ---
Subjective Patient is a 66-year-old female with a known history of atrial fibrillation on anticoagulation with Eliquis, coronary artery disease, hyperlipidemia, GERD, chronic back pain and history of uterine cancer status post hysterectomy and prior history of smoking was admitted to the hospital for elective coronary artery bypass graft. Patient states that she developed chest discomfort about 2 to 3 months ago with minimal activity and underwent stress test which showed reversible ischemia and subsequent cardiac catheterization showed multivessel co ronary disease. Patient was seen by CT surgery and recommends CABG. 2D echocardiogram showed ejection fraction 55 to 60%. No pulmonary hypertension. Patient was admitted to the hospital today for elective coronary revascularization procedure. Patient was transferred to ICU postoperatively and was intubated preoperatively. Patient is currently extubated and is sitting State. Complains of soreness in the surgical site. No complaints of chest pain. No nausea vomiting abdominal pain or diarrhea. No cough or sputum production Chest x-ray this morning showed postoperative changes of CABG. Laboratory test showed WBC 17.0 hemoglobin 10.7 and platelets 122 Sodium 137 potassium 4.4 chloride 107 bicarb is 26 BUN 14 and creatinine 0.7 and blood sugar 122 Calcium 8.0 AST 53 ALT 21 alk phos 54 and albumin 3.1 06/19/2022 Patient is currently in MICU. Sitting in the chair. Awake alert and oriented. Requiring oxygen at 2 L via nasal cannula. Mediastinal chest tube was removed today. Chest x-ray showed minimal basilar atelectasis. No evidence of CHF. Patient is using incentive spirometry. Otherwise denied any complaints of chest pain or shortness of breath. No fever no chills. No cough or sputum production. Laboratory pressure WBC 15.1 hemoglobin 9.2 and platelets 96 sodium 132 potassium 4.6 chloride 103 BUN 15 and creatinine 0.77 and blood sugar is 120 and albumin 3.0 06/20/2022 Patient is currently sitting in the recliner. Awake alert and oriented x3. Patient converted to A. fib last night and did receive amiodarone bolus. Lopressor was added. Cardiology is on board. Currently requiring oxygen at 2 L via nasal cannula. No chest pain or shortness of breath. No nausea vomiting abdominal pain or diarrhea. Chest x-ray showed postoperative changes of CABG. Chest tube was removed today. Laboratory test showed WBC 14.0 hemoglobin 9.9 and platelets 135 sodium 138 potassium 4.3 chloride 105 bicarb is 30 BUN 49 creatinine 0.84 and albumin 3.0. Cardiology and pulmonary is on board. 06/21/2022 Patient denies any other signs and symptoms. Vitals are stable. Patient's heart rate 90% room air Chest x-rays showed removal of the right chest tube, stable left chest tube, bilateral lower lobe infiltrates versus atelectasis. Eliquis started today Patient is not on antibiotics 06/22/2012 Patient clinically doing well, she has occasional chest pain but improved now. Reason is fine. She tolerates that well. No abdominal pain. No vomiting. Left-sided chest tube was removed and repeat chest x-ray looks his stable She was started on Eliquis yesterday as well as S Jose Manuel. Objective - Vital Signs Vital signs: Vital Signs Temp 98.6 F 06/22/22 04:00 Pulse 84 06/22/22 08:35 Resp 16 06/22/22 08:35 BP 121/58 06/22/22 04:00 Pulse Ox 95 06/22/22 08:25 FiO2 40 06/17/22 19:22 Intake & Output 06/21/22 06/22/22 06/22/22 18:59 06:59 18:59 Intake Total 20 100 0 Output Total 125 800 Balance -105 -700 0 Weight 75.9 kg Intake: IV 20 Invasive Line 5 10 Invasive Line 6 10 Oral 100 0 Output: Chest Tube Drainage 0 LP 0 Urine 125 800 Other: Voiding Method Bedside Commode Toilet # Voids 1 ABP, PAP, CO, CI - Last Documented Arterial Blood Pressure 120/46 Pulmonary Artery Pressure 32/15 Cardiac Output 4.5 Cardiac Index 2.5 - Exam GENERAL: The patient is alert and oriented x3, not in any acute distress. Well d eveloped, well nourished. HEENT: Pupils are round and equally reacting to light. EOMI. No scleral icterus. No conjunctival pallor. Normocephalic, atraumatic. No pharyngeal erythema. No thyromegaly. -CARDIOVASCULAR: S1 and S2 present. No murmurs, rubs, or gallops. Left side Chest Tube PULMONARY: Chest is clear to auscultation, no wheezing or crackles. ABDOMEN: Soft, nontender, nondistended, normoactive bowel sounds. No palpable organomegaly. MUSCULOSKELETAL: No joint swelling or deformity. EXTREMITIES: No cyanosis, clubbing, or pedal edema. NEUROLOGICAL: Gross neurological examination did not reveal any focal deficits. SKIN: No rashes. no petechiae. - Labs CBC & Chem 7: 06/22/22 07:11 06/22/22 07:11 Labs: Abnormal Lab Results - Last 24 Hours (Table) 06/21/22 06/21/22 06/22/22 Range/Units 12:09 20:14 07:11 RBC 2.96 L (3.80-5.40) m/uL Hgb 9.1 L (11.4-16.0) gm/dL Hct 27.4 L (34.0-46.0) % Chloride (98-107) mmol/L Glucose (74-99) mg/dL POC Glucose (mg/dL) 120 H 138 H (70-110) mg/dL Calcium (8.4-10.2) mg/dL 06/22/22 Range/Units 07:11 RBC (3.80-5.40) m/uL Hgb (11.4-16.0) gm/dL Hct (34.0-46.0) % Chloride 108 H (98-107) mmol/L Glucose 100 H (74-99) mg/dL POC Glucose (mg/dL) (70-110) mg/dL Calcium 7.8 L (8.4-10.2) mg/dL Assessment and Plan Assessment: Coronary artery disease status post CABG. HERNANDEZ to LAD and SVG to OM. Postop day 3. Hypoxemic respiratory failure perioperatively. Currently extubated. On 2 L oxygen via nasal cannula. Paroxysmal atrial fibrillation on anticoagulation with Eliquis Hypothyroidism History of endometrial cancer status post hysterectomy Hyperlipidemia GERD Osteoarthritis Prior history of smoking DVT prophylaxis patient is currently on heparin subcu every 8h Plan: Continue with the Eliquis Patient will be continued on telemetry monitoring. Continue with aspirin Plavix and statins and also on metoprolol 25 mg twice daily. Amiodarone changed to p.o. 400 mg twice daily. Encourage incentive spirometry and activity. Continue with GI prophylaxis. Continue insulin sliding scale for better blood sugar control. Further recommendations based on the clinical course.
--- NOTE | 2022-06-22 10:53 | P.PN ---
Subjective Progress Note Date: 06/22/22 HISTORY OF PRESENT ILLNESS: Patient is status post CABG 2 vessels. Postoperative day #5. Patient examined this morning. She is sitting up in the chair. Patient denies any chest pain or pressure. She denies shortness of breath. Telemetry reveals sinus mechanism. Vital signs are stable. PHYSICAL EXAM: VITAL SIGNS: Reviewed. GENERAL: Well-developed in no acute distress. NECK: Supple. No JVD or thyromegaly LUNGS: Respirations even and unlabored. Lungs essentially clear to auscultation bilaterally. HEART: Regular rate and rhythm. S1 and S2 heard. EXTREMITIES: Normal range of motion. No clubbing or cyanosis. Peripheral pulses intact. No lower extremity edema ASSESSMENT: 1. CAD status post CABG 06/17 with HERNANDEZ to LAD and SVG to OM 2. History of paroxysmal atrial fibrillation 3. Hypothyroidism 4. Hypertension 5. Previous tobacco abuse 6. History of endometrial cancer PLAN: Continue postoperative management per cardiothoracic surgery Continue current cardiac medications Encourage use of incentive spirometer Increase activity as tolerated Stable from a cardiac standpoint Further recommendations pending patient's course Nurse practitioner note has been reviewed by physician. Signing provider agrees with the documented findings, assessment, and plan of care. Objective - Vital Signs Vital signs: Vital Signs Temp 98.6 F 06/22/22 04:00 Pulse 84 06/22/22 08:35 Resp 16 06/22/22 08:35 BP 121/58 06/22/22 04:00 Pulse Ox 95 06/22/22 08:25 FiO2 40 06/17/22 19:22 Intake & Output 06/21/22 06/22/22 06/22/22 18:59 06:59 18:59 Intake Total 20 100 0 Output Total 125 800 Balance -105 -700 0 Weight 75.9 kg Intake: IV 20 Invasive Line 5 10 Invasive Line 6 10 Oral 100 0 Output: Chest Tube Drainage 0 LP 0 Urine 125 800 Other: Voiding Method Bedside Commode Toilet # Voids 1 ABP, PAP, CO, CI - Last Documented Arterial Blood Pressure 120/46 Pulmonary Artery Pressure 32/15 Cardiac Output 4.5 Cardiac Index 2.5 - Labs CBC & Chem 7: 06/22/22 07:11 06/22/22 07:11 Labs: Abnormal Lab Results - Last 24 Hours (Table) 06/21/22 06/21/22 06/22/22 Range/Units 12:09 20:14 07:11 RBC 2.96 L (3.80-5.40) m/uL Hgb 9.1 L (11.4-16.0) gm/dL Hct 27.4 L (34.0-46.0) % Chloride (98-107) mmol/L Glucose (74-99) mg/dL POC Glucose (mg/dL) 120 H 138 H (70-110) mg/dL Calcium (8.4-10.2) mg/dL 06/22/22 Range/Units 07:11 RBC (3.80-5.40) m/uL Hgb (11.4-16.0) gm/dL Hct (34.0-46.0) % Chloride 108 H (98-107) mmol/L Glucose 100 H (74-99) mg/dL POC Glucose (mg/dL) (70-110) mg/dL Calcium 7.8 L (8.4-10.2) mg/dL
[2022-06-22 11:30] LABS: Glucose,Whole Blood 107 mg/dL (70-110)
[2022-06-22] MEDS: KETOROLAC 15 MG/ML 1 ML VIAL IVP PRN ×2 (14:07→21:42)
--- NOTE | 2022-06-22 14:53 | P.PN ---
Subjective Progress Note Date: 06/22/22 Principal diagnosis: Coronary artery bypass grafting 2 vessels, left internal mammary artery to the left anterior descending artery, reverse saphenous vein graft to the obtuse mar ginal artery, endoscopic harvesting of the right greater saphenous vein, ligation of the left atrial appendage using a 35 mm AtriClip, pulmonary vein isolation, epi-aortic ultrasound, intraoperative transesophageal echocardiogram The patient is seen today 06/21/2022 in follow-up in the intensive care unit. She is currently sitting up in a chair at the bedside. Awake and alert in no acute distress. She is maintaining good O2 saturations in the 90s on room air. She continues to work with the incentive spirometer. Chest x-ray shows basilar atelectasis. Left pleural chest tube and ventricular epicardial wires remain in place. No IV fluids. She is currently in sinus rhythm. White count 9.2. Hemoglobin 8.7. Platelets 153. Sodium 136. Potassium 4.8. BUN 14. Creatinine 0.87. Glucose 117. She is continued on DuoNeb inhalations heparin for DVT prophylaxis. Eliquis to be resumed tomorrow. The patient is seen today 06/22/2022 in follow-up on the selective care unit. She is currently sitting up in a chair at the bedside. Awake and alert in no acute distress. chest x-ray shows interval removal of the left-sided chest tube. Stable left patchy airspace opacities. Decreased trace effusions. White count 8.7. Hemoglobin 9.1. Platelets 198. Sodium 137. Potassium 4.7. BUN 15. Creatinine 0.81. Glucose 100. she is continued on DuoNeb inhalations. Working well with the incentive spirometer. Remains on oral amiodarone. Anticoagulated with Eliquis. Objective - Vital Signs Vital signs: Vital Signs Temp 97.6 F 06/22/22 11:24 Pulse 82 06/22/22 11:24 Resp 15 06/22/22 11:24 BP 108/70 06/22/22 11:24 Pulse Ox 96 06/22/22 11:24 FiO2 40 06/17/22 19:22 Intake & Output 06/21/22 06/22/22 06/22/22 18:59 06:59 18:59 Intake Total 20 100 0 Output Total 125 800 Balance -105 -700 0 Weight 75.9 kg Intake: IV 20 Invasive Line 5 10 Invasive Line 6 10 Oral 100 0 Output: Chest Tube Drainage 0 LP 0 Urine 125 800 Other: Voiding Method Bedside Commode Toilet Toilet # Voids 1 ABP, PAP, CO, CI - Last Documented Arterial Blood Pressure 120/46 Pulmonary Artery Pressure 32/15 Cardiac Output 4.5 Cardiac Index 2.5 - Exam GENERAL EXAM: Alert, 66-year-old female, on room air, up in a chair, comfortable in no apparent distress. HEAD: Normocephalic. EYES: Normal reaction of pupils, equal size. NOSE: Clear with pink turbinates. THROAT: No erythema or exudates. NECK: No masses, no JVD. CHEST: Heart hugger in place. Sternal dressing dry and intact. LUNGS: Equal air entry with faint crackles in the posterior bases. CVS: S1 and S2 normal with no audible murmur, regular rhythm. ABDOMEN: No hepatosplenomegaly, normal bowel sounds, no guarding or rigidity. SPINE: No scoliosis or deformity SKIN: No rashes CENTRAL NERVOUS SYSTEM: No focal deficits, tone is normal in all 4 extremities. EXTREMITIES: There is no peripheral edema. No clubbing, no cyanosis. Peripheral pulses are intact. - Labs CBC & Chem 7: 06/22/22 07:11 06/22/22 07:11 Labs: Abnormal Lab Results - Last 24 Hours (Table) 06/21/22 06/22/22 06/22/22 Range/Units 20:14 07:11 07:11 RBC 2.96 L (3.80-5.40) m/uL Hgb 9.1 L (11.4-16.0) gm/dL Hct 27.4 L (34.0-46.0) % Chloride 108 H (98-107) mmol/L Glucose 100 H (74-99) mg/dL POC Glucose (mg/dL) 138 H (70-110) mg/dL Calcium 7.8 L (8.4-10.2) mg/dL Assessment and Plan Assessment: Coronary artery disease status post coronary artery bypass grafting utilizing a HERNANDEZ to the LAD, SVG to OM. Postoperative day #5 Hypoxemic respiratory failure secondary to above, expected outcome. Recovered and on room air History of paroxysmal atrial fibrillation, anticoagulated with Eliquis, currently on hold Hyperlipidemia Hypothyroidism History of endometrial cancer with previous hysterectomy Arthritis History of chronic tobacco dependence Plan: The patient was seen and evaluated Chest x-ray, medications and labs reviewed Currently stable and on room air Encouraged increased use of the incentive spirometer Continue the current treatment plan Home once cleared by CT services Follow up in the office in 1 week I have personally seen and examined the patient, performed the documentation and the assessment and plan as written. Number of minutes spent on the visit: 10.
[2022-06-22 16:30] LABS: Glucose,Whole Blood 124 mg/dL (70-110)
[2022-06-22 20:14] LABS: Glucose,Whole Blood 115 mg/dL (70-110)
[2022-06-22] MEDS: ATORVASTATIN 80 MG TAB PO SCH (21:38)
[2022-06-22] MEDS: SENNOSIDES-DOCUSATE SODIUM 1 EACH TAB PO SCH (21:38)
[2022-06-22] MEDS: MELATONIN 3 MG TABLET PO SCH (21:38)
[2022-06-23 04:12] VITALS: RESP 18
[2022-06-23] MEDS: KETOROLAC 15 MG/ML 1 ML VIAL IVP PRN (04:12)
[2022-06-23 06:03] LABS: Glucose,Whole Blood 101 mg/dL (70-110)
[2022-06-23] MEDS: INSULIN ASPART (NovoLOG) 100 UNIT/ML VIAL SQ SCH (06:05)
[2022-06-23] MEDS: LEVOTHYROXINE 25 MCG TAB PO SCH (06:06)
[2022-06-23] MEDS: PANTOPRAZOLE 40 MG TABLET PO SCH (06:06)
[2022-06-23] MEDS: IPRATROPIUM-ALBUTEROL 3 ML NEB INHALATION SCH ×2 (07:17→11:04)
--- NOTE | 2022-06-23 07:25 | XR ---
EXAMINATION TYPE: XR chest 2V DATE OF EXAM: 06/23/2022 6:17 AM COMPARISON: Chest radiographs from 06/22/2022 TECHNIQUE: XR chest 2V Frontal and lateral views of the chest. CLINICAL INDICATION:Female, 66 years old with history of post cardiac surgery; FINDINGS: Lungs/Pleura: Multifocal airspace opacities most pronounced on the left. There is blunting of the cos tophrenic angles. No evidence of pneumothorax. Pulmonary vascularity: Unremarkable. Heart/mediastinum: Cardiomediastinal silhouette is unremarkable. Left atrial appendage occlusion james ce is present. Musculoskeletal: No acute osseous pathology. Midline sternotomy wires are noted. IMPRESSION: Similar multifocal airspace opacities with trace bilateral pleural effusions. Findings may represent atelectasis versus pulmonary edema.
[2022-06-23 08:45] LABS: HCT 29.8 % (34.0-46.0); HGB 9.8 gm/dL (11.4-16.0); MCH 30.9 pg (25.0-35.0); MCHC 32.9 g/dL (31.0-37.0); MCV 93.9 fL (80.0-100.0); Mean Platelet Volume 7.9; Platelet Count 262 k/uL (150-450); RBC 3.17 m/uL (3.80-5.40); RDW 14.3 % (11.5-15.5); WBC 13.3 k/uL (3.8-10.6)
[2022-06-23] MEDS ORDERED: METOPROLOL TARTRATE 50 MG TAB PO SCH (09:00)
--- NOTE | 2022-06-23 09:00 | P.PN ---
Subjective Progress Note Date: 06/23/22 Principal diagnosis: Coronary artery disease, stable angina. Previous medical history of hyperlipidemia, paroxysmal atrial fibrillation, hypothyroid, endometrial cancer, previous tobacco dependence POD #6 coronary artery bypass grafting 2 vessels, left internal mammary artery to the left anterior descending artery, reverse saphenous vein graft to the obtuse marginal artery, endoscopic harvesting of the right greater saphenous vein, ligation of the left atrial appendage using a 35 mm AtriClip, pulmonary vein isolation, epi-aortic ultrasound, intraoperative transesophageal echocardiogram Postoperative acute blood loss anemia and thrombocytopenia, expected given hemodilution and cardiopulmonary bypass pump Atrial fibrillation, known comment occurrence after open heart surgery especially with history of paroxysmal atrial fibrillation, not a complication The patient was seen and examined this morning sitting up in a recliner on the cardiac stepdown unit in no acute distress. Remains in sinus rhythm and hemodynamically stable. States post surgical pain is mostly controlled with current medication regimen, denies shortness of breath. She is currently on room air with oxygen saturation in the mid 90s. Lab work and chest x-ray reviewed. She has ambulated in the hallway several times, showered yesterday. No other new concerns. Objective - Vital Signs Vital signs: Vital Signs Temp 98.9 F 06/23/22 04:09 Pulse 84 06/23/22 07:27 Resp 18 06/23/22 04:09 BP 135/69 06/23/22 04:09 Pulse Ox 92 L 06/23/22 04:09 FiO2 40 06/17/22 19:22 Intake & Output 06/22/22 06/23/22 06/23/22 18:59 06:59 18:59 Intake Total 240 Output Total 300 1550 Balance -60 -1550 Weight 74.3 kg Intake: Oral 240 Output: Urine 300 1550 Other: Voiding Method Toilet Toilet # Bowel Movements 1 1 ABP, PAP, CO, CI - Last Documented Arterial Blood Pressure 120/46 Pulmonary Artery Pressure 32/15 Cardiac Output 4.5 Cardiac Index 2.5 - Exam CONSTITUTIONAL: Appears comfortable, cooperative, no acute distress RESPIRATORY: Lungs sounds diminished bilaterally. Respirations even, nonlabored. Currently on room air with oxygen saturation 93%. Able to achieve 750 mL on incentive spirometry. Stronger cough CARDIOVASCULAR: S1, S2 present. Regular rate and rhythm, sinus rhythm on telemetry. Sternum stable. Palpable peripheral pulses bilaterally. No edema present. No calf pain or tenderness noted. Heart hugger in place with patient demonstrating appropriate use. Antiembolism stockings, SCDs present. GASTROINTESTINAL: Abdomen soft, nontender, nondistended. Active bowel sounds present 4 quadrants. Tolerating diet. Positive bowel movement 06/22 GENITOURINARY: Continues to void clear, yellow urine INTEGUMENTARY: Skin is warm and dry with evidence of good perfusion. Anterior chest incision well approximated. Right lower extremity EVH site well stewart roximated without redness or drainage. NEUROLOGIC: Cranial nerves II through XII intact MUSKULOSKELETAL: Able to move all extremities, strength equal bilaterally, gait normal PSYCHIATRIC: Alert and oriented to person place and time, appropriate affect, intact judgment and insight - Allied health notes Allied health notes reviewed: nursing - Labs CBC & Chem 7: 06/23/22 08:21 06/22/22 07:11 Labs: Abnormal Lab Results - Last 24 Hours (Table) 06/22/22 06/22/22 06/23/22 Range/Units 16:28 20:13 08:21 WBC 13.3 H (3.8-10.6) k/uL RBC 3.17 L (3.80-5.40) m/uL Hgb 9.8 L (11.4-16.0) gm/dL Hct 29.8 L (34.0-46.0) % POC Glucose (mg/dL) 124 H 115 H (70-110) mg/dL - Imaging and Cardiology Chest x-ray: report reviewed, image reviewed Assessment and Plan Assessment: 1. Coronary artery disease, stable angina, status post 2 vessel CABG 2. Preserved left ventricular systolic function, EF 55-60% 3. History of hyperlipidemia, treated, cholesterol 208, LDL 129 4. Paroxysmal atrial fibrillation, on Eliquis outpatient, status post pulmonary vein isolation and left atrial appendage ligation 5. Hypothyroid, preoperative TSH 4.289 6. History of endometrial cancer 7. Previous tobacco dependence, preoperative FEV1 110% of predicted 8. Postoperative acute blood loss anemia and thrombocytopenia, expected 9. Atrial fibrillation, known comment occurrence after open heart surgery especially with history of paroxysmal atrial fibrillation, not a complication Plan: 1. Continue to maximize medical therapy with aspirin, statin, beta wendy therapy 2. Continue amiodarone, Eliquis 3. Encourage incentive spirometry 10 times every hour while awake. Bronchodilators per pulmonology 4. Increase activity, ambulate as tolerated. PT/OT/cardiac rehab following 5. Will monitor daily labs and x-rays. Electrolyte replacement per protocol. 6. GI/DVT prophylaxis 7. Pain control with current medication regimen 8. Insulin management per primary care service. Patient is not diabetic, preoperative hemoglobin A1c 5.5% 9. Strict accurate intake and output, daily weights 10. Discharge planning in progress. Anticipate discharge to home with home care later today 11. More recommendations to follow
[2022-06-23 09:14] LABS: Potassium 4.8 mmol/L (3.5-5.1)
[2022-06-23] MEDS: APIXABAN 5 MG TAB PO SCH (09:21)
[2022-06-23] MEDS: ZINC SULFATE 220 MG CAP PO SCH (09:21)
[2022-06-23] MEDS: CHOLECALCIFEROL 125 MCG (5000 IU) TABLET PO SCH (09:21)
[2022-06-23] MEDS: VITAMIN E (DL,TOCOPHERYL ACET) 400 UNIT (180 MG) CAP PO SCH (09:21)
[2022-06-23] MEDS: AMIODARONE 200 MG TAB PO SCH (09:21)
[2022-06-23] MEDS: ASPIRIN 81 MG PO SCH (09:21)
--- NOTE | 2022-06-23 10:40 | P.PN ---
Subjective Progress Note Date: 06/23/22 HISTORY OF PRESENT ILLNESS: Patient is status post CABG 2 vessels. Postoperative day #5. Patient examined this morning. She is sitting up in the chair. Patient denies any chest pain or pressure. She denies shortness of breath. Telemetry reveals sinus mechanism. Vital signs are stable. 06/23/2022 Patient examined this morning. She is sitting up in the chair. Denies chest pain or pressure. She denies shortness of breath. Telemetry reveals sinus mechanism. Vital signs are stable. PHYSICAL EXAM: VITAL SIGNS: Reviewed. GENERAL: Well-developed in no acute distress. NECK: Supple. No JVD or thyromegaly LUNGS: Respirations even and unlabored. Lungs essentially clear to auscultation bilaterally. HEART: Regular rate and rhythm. S1 and S2 heard. EXTREMITIES: Normal range of motion. No clubbing or cyanosis. Peripheral pulses intact. No lower extremity edema ASSESSMENT: 1. CAD status post CABG 06/17 with HERNANDEZ to LAD and SVG to OM 2. History of paroxysmal atrial fibrillation 3. Hypothyroidism 4. Hypertension 5. Previous tobacco abuse 6. History of endometrial cancer PLAN: Continue postoperative management per cardiothoracic surgery Continue current cardiac medications Encourage use of incentive spirometer Increase activity as tolerated Stable from a cardiac standpoint Anticipate discharge home today Follow up outpatient with Dr. Cunningham Nurse practitioner note has been reviewed by physician. Signing provider agrees with the documented findings, assessment, and plan of care. Objective - Vital Signs Vital signs: Vital Signs Temp 98.9 F 06/23/22 04:09 Pulse 84 06/23/22 07:27 Resp 18 06/23/22 04:09 BP 135/69 06/23/22 04:09 Pulse Ox 92 L 06/23/22 04:09 FiO2 40 06/17/22 19:22 Intake & Output 06/22/22 06/23/22 06/23/22 18:59 06:59 18:59 Intake Total 240 Output Total 300 1550 Balance -60 -1550 Weight 74.3 kg Intake: Oral 240 Output: Urine 300 1550 Other: Voiding Method Toilet Toilet # Bowel Movements 1 1 ABP, PAP, CO, CI - Last Documented Arterial Blood Pressure 120/46 Pulmonary Artery Pressure 32/15 Cardiac Output 4.5 Cardiac Index 2.5 - Labs CBC & Chem 7: 06/23/22 08:21 06/23/22 08:21 Labs: Abnormal Lab Results - Last 24 Hours (Table) 06/22/22 06/22/22 06/23/22 Range/Units 16:28 20:13 08:21 WBC 13.3 H (3.8-10.6) k/uL RBC 3.17 L (3.80-5.40) m/uL Hgb 9.8 L (11.4-16.0) gm/dL Hct 29.8 L (34.0-46.0) % Glucose (74-99) mg/dL POC Glucose (mg/dL) 124 H 115 H (70-110) mg/dL Calcium (8.4-10.2) mg/dL 06/23/22 Range/Units 08:21 WBC (3.8-10.6) k/uL RBC (3.80-5.40) m/uL Hgb (11.4-16.0) gm/dL Hct (34.0-46.0) % Glucose 137 H (74-99) mg/dL POC Glucose (mg/dL) (70-110) mg/dL Calcium 8.0 L (8.4-10.2) mg/dL
[2022-06-23 10:52] VITALS: TEMP 97.6
--- NOTE | 2022-06-23 11:28 | CDI ---
Documentation Clarification Form Date: 06/23/2022 11:09:12 AM From: Renata Chen CCS, CCDS Admit Date: 06/17/2022 05:36:00 AM Patient Name: Olive Pizano Visit Number: [id number] Discharge Date: ATTENTION: The Clinical Documentation Specialists (CDI) and [facility] Coding Staff appreciate your assistance in clarifying documentation. Please respond to the clarification below the line at the bottom and electronically sign. The CDI & [facility] Coding staff will review the response and follow-up if needed. Please note: Queries are made part of the Legal Health Record. If you have any questions, please contact the author of this message via ITS. Dr. Justin Guevara: Hypoxemic Respiratory Failure secondary to above, expected outcome, remains on mechanical ventilator. Per the 06/18 Medical Management Consult and subsequent Progress Notes: Hypoxemic Respiratory Failure perioperatively, currently extubated on 2Lnc. Based on this information and the findings below, is there an additional diagnosis that is clinically appropriate for this patient? History/Risk Factors per the Hypercholesterolemia, endometrial cancer, Arthritis, Recent diagnosis of Atrial Fibrillation, Hypothyroidism, Former smoker. Clinical Indicators: Presented on 06/17 for a 2 vessel CABG. 06/17 VS: T 97.0, P 70, R 15 - 85; BP 124/78, PO 96 RA, intubated for procedure. 06/17 on 5Lnc. 06/17 LAB: CO2 25 Blood Gas: ABG pH: 7.39, pCO2 42, pO2 382, HCO3 26, Total CO2 27, O2 Sat 99.7, Hematocrit 24, K 4.9, Ionized Calcium 4.1, Glucose 144, Hgb 7.9. Treatment 06/17: IV na Chl w/Cefazolin 2,000 mg x1, IV Na Chl w/Heparin 5,000 units, IV Papaverine 360 mg x1, IV Albumin 250 mls @ 250 mls/hr q1H, INH Duoneb 3ml Q2H/prn, IV Amiodarone q6H/prn, IV Calcium Gluconate/Na Chl 100 mls @ 100 mls/hr x1, IV Dexmedetomidine 100 mls, IV Dextrose/Water 25 mls prn, IV Insulin. Please specify the acuity of the documented Hypoxemic Respiratory Failure: [ ] Acute Hypoxic Respiratory Failure [ ] Acute on Chronic Hypoxic Respiratory Failure [ ] Chronic Hypoxic Respiratory Failure [ ] Acute Respiratory Insufficiency [ ] Other Diagnosis, please specify: [ ] Unable to determine (Template Last Revised: October 2020) ____ You need to ask who was caring for the patient when she was on the ventilator. [place]
[2022-06-23 11:40] LABS: Glucose,Whole Blood 99 mg/dL (70-110)
[2022-06-23] MEDS: ACETAMINOPHEN TAB 325 MG TAB PO PRN (12:16)
[2022-06-23 12:20] VITALS: BP 129/78; PULSE 86
--- NOTE | 2022-06-23 13:24 | P.PN ---
Subjective Progress Note Date: 06/23/22 Principal diagnosis: Coronary artery bypass grafting 2 vessels, left internal mammary artery to the left anterior descending artery, reverse saphenous vein graft to the obtuse mar ginal artery, endoscopic harvesting of the right greater saphenous vein, ligation of the left atrial appendage using a 35 mm AtriClip, pulmonary vein isolation, epi-aortic ultrasound, intraoperative transesophageal echocardiogram The patient is seen today 06/21/2022 in follow-up in the intensive care unit. She is currently sitting up in a chair at the bedside. Awake and alert in no acute distress. She is maintaining good O2 saturations in the 90s on room air. She continues to work with the incentive spirometer. Chest x-ray shows basilar atelectasis. Left pleural chest tube and ventricular epicardial wires remain in place. No IV fluids. She is currently in sinus rhythm. White count 9.2. Hemoglobin 8.7. Platelets 153. Sodium 136. Potassium 4.8. BUN 14. Creatinine 0.87. Glucose 117. She is continued on DuoNeb inhalations heparin for DVT prophylaxis. Eliquis to be resumed tomorrow. The patient is seen today 06/22/2022 in follow-up on the selective care unit. She is currently sitting up in a chair at the bedside. Awake and alert in no acute distress. chest x-ray shows interval removal of the left-sided chest tube. Stable left patchy airspace opacities. Decreased trace effusions. White count 8.7. Hemoglobin 9.1. Platelets 198. Sodium 137. Potassium 4.7. BUN 15. Creatinine 0.81. Glucose 100. she is continued on DuoNeb inhalations. Working well with the incentive spirometer. Remains on oral amiodarone. Anticoagulated with Eliquis. The patient is seen today 06/23/2022 in follow-up on the selective care unit. Awake and alert in no acute distress. Sitting up in a chair at the bedside. Maintaining good O2 saturations in the 90s on room air. S x-ray shows similar multifocal airspace opacities with trace bilateral pleural effusions. Suspect atelectasis. She is continuing to work well with the incentive spirometer. White count 13.3. Hemoglobin 9.8. Sodium 138. Potassium 4.8. BUN 13. Creatinine 0.86. She is continued on bronchodilators. Remains on oral amiodarone. Anticoagulated with Eliquis. Objective - Vital Signs Vital signs: Vital Signs Temp 97.6 F 06/23/22 08:00 Pulse 86 06/23/22 12:00 Resp 18 06/23/22 12:00 BP 129/78 06/23/22 12:00 Pulse Ox 95 06/23/22 12:00 FiO2 40 06/17/22 19:22 Intake & Output 06/22/22 06/23/22 06/23/22 18:59 06:59 18:59 Intake Total 240 180 Output Total 300 1550 100 Balance -60 -1550 80 Weight 74.3 kg Intake: Oral 240 180 Output: Urine 300 1550 100 Other: Voiding Method Toilet Toilet Toilet # Bowel Movements 1 1 ABP, PAP, CO, CI - Last Documented Arterial Blood Pressure 120/46 Pulmonary Artery Pressure 32/15 Cardiac Output 4.5 Cardiac Index 2.5 - Exam GENERAL EXAM: Alert, very pleasant 66-year-old female, on room air, up in a chair, comfortable in no apparent distress. HEAD: Normocephalic. EYES: Normal reaction of pupils, equal size. NOSE: Clear with pink turbinates. THROAT: No erythema or exudates. NECK: No masses, no JVD. CHEST: Heart hugger in place. Sternal dressing dry and intact. LUNGS: Equal air entry with faint crackles in the posterior bases. CVS: S1 and S2 normal with no audible murmur, regular rhythm. ABDOMEN: No hepatosplenomegaly, normal bowel sounds, no guarding or rigidity. SPINE: No scoliosis or deformity SKIN: No rashes CENTRAL NERVOUS SYSTEM: No focal deficits, tone is normal in all 4 extremities. EXTREMITIES: There is no peripheral edema. No clubbing, no cyanosis. Peripheral pulses are intact. - Labs CBC & Chem 7: 06/23/22 08:21 06/23/22 08:21 Labs: Abnormal Lab Results - Last 24 Hours (Table) 06/22/22 06/22/22 06/23/22 Range/Units 16:28 20:13 08:21 WBC 13.3 H (3.8-10.6) k/uL RBC 3.17 L (3.80-5.40) m/uL Hgb 9.8 L (11.4-16.0) gm/dL Hct 29.8 L (34.0-46.0) % Glucose (74-99) mg/dL POC Glucose (mg/dL) 124 H 115 H (70-110) mg/dL Calcium (8.4-10.2) mg/dL 06/23/22 Range/Units 08:21 WBC (3.8-10.6) k/uL RBC (3.80-5.40) m/uL Hgb (11.4-16.0) gm/dL Hct (34.0-46.0) % Glucose 137 H (74-99) mg/dL POC Glucose (mg/dL) (70-110) mg/dL Calcium 8.0 L (8.4-10.2) mg/dL Assessment and Plan Assessment: Coronary artery disease status post coronary artery bypass grafting utilizing a HERNANDEZ to the LAD, SVG to OM. Postoperative day #6 Acute hypoxemic respiratory failure secondary to above, expected outcome. Recovered and on room air History of paroxysmal atrial fibrillation, anticoagulated with Eliquis, currently on hold Hyperlipidemia Hypothyroidism History of endometrial cancer with previous hysterectomy Arthritis History of chronic tobacco dependence Plan: The patient was seen and evaluated Chest x-ray, medications and labs reviewed Encouraged to continue the use of the incentive spirometer at home Home once cleared by CT services Follow up in the office in 1 week I have personally seen and examined the patient, performed the documentation and the assessment and plan as written. Number of minutes spent on the visit: 10.
--- NOTE | 2022-06-23 14:59 | P.DS ---
Providers Date of admission: 06/17/22 05:36 Expected date of discharge: 06/23/22 Attending physician: Lukasz Belle Consults: 06/17/22 13:20 Consult Physician Routine Consulting Provider: Jacob Bishop Consult Reason/Comments: Automatic I Threading Machine Feeder Consult: post cardiac surgery Do you want consulting provider notified?: Yes Consult Physician Routine Consulting Provider: Coral Sapp Consult Reason/Comments: Impregnation Operator Consult: post cardiac surgery Do you want consulting provider notified?: Yes Consult Physician Routine Consulting Provider: Elia Marie Consult Reason/Comments: med mgmt; Gabe patient Do you want consulting provider notified?: Yes 06/18/22 13:52 Consult Physician Routine Consulting Provider: Michelle Cornelius Consult Reason/Comments: medical management Do you want consulting provider notified?: Yes Primary care physician: [facility] Course: FINAL DIAGNOSIS: 1. Coronary artery disease, stable angina 2. Preserved left ventricular systolic function, EF 55-60% 3. History of hyperlipidemia, treated, cholesterol 208, LDL 129 4. Paroxysmal atrial fibrillation, on Eliquis outpatient 5. Hypothyroid, preoperative TSH 4.289 6. History of endometrial cancer 7. Previous tobacco dependence, preoperative FEV1 110% of predicted 8. Postoperative acute blood loss anemia and thrombocytopenia, expected PRINCIPAL PROCEDURE: 1. Coronary artery bypass grafting 2 vessels, left internal mammary artery to the left anterior descending artery, reverse saphenous vein graft to the obtuse marginal artery 2. Endoscopic harvesting of the right greater saphenous vein 3. Ligation of the left atrial appendage using a 35 mm AtriClip 4. Pulmonary vein isolation 5. Epi-aortic ultrasound 6. Intraoperative transesophageal echocardiogram performed by anesthesia HISTORY OF PRESENT ILLNESS: This is a 66-year-old female who follows on an outpatient basis with Dr. Bernal for primary care and Dr. Cunningham for cardiology. She was reporting progressive chest discomfort over the previous 2- 3 months which occurred both at rest and with minimal activity, it did resolve on its own. She also reported shortness of breath with activity. She underwent calcium scoring which was abnormal, and subsequently underwent stress testing which was also abnormal revealing possible anterior wall reversible ischemia. Cardiac catheterization was recommended and performed revealing multivessel coronary artery disease not amenable to PCI. The patient was referred to Dr. Belle from cardiothoracic surgery. She was recommended to undergo coronary artery bypass surgery. The usual perioperative course was discussed in detail with the patient and her , all risks and benefits were explained, all questions were answered, and consent was obtained to proceed with surgery. The patient was scheduled for elective surgery at the earliest available date after discontinuation of Eliquis for 5 days. HOSPITAL COURSE: The patient was brought to the hospital on 06/17/22, taken to the preoperative area, prepared in the usual fashion, and subsequently taken to the operating room where Dr. Belle performed 2 vessel CABG. Upon completion of surgery the patient was transferred to the cardiovascular intensive care unit where she was recovered and monitored hemodynamically. She was extubated, all lines, tubes, and drips were discontinued when appropriate, and she was transferred to [facility] cardiac stepdown unit for further monitoring and rehabilitation. Her oxygen was titrated down, she continued to work with physical and occupational therapy, she was tolerating oral diet, her pain was controlled, and she was ready to be discharged to home with [facility] care on postoperative day #6. She received written and verbal instruction regarding her medications, activity restrictions, signs and symptoms requiring physician notification, and follow-up appointments. Patient Condition at Discharge: Stable Plan - Discharge Summary Discharge Rx Participant: No New Discharge Prescriptions: New Amiodarone [Cordarone] 400 mg PO BID #33 tab Metoprolol Tartrate [Lopressor] 50 mg PO BID #60 tab Sennosides-Docusate Sodium [Senokot-S] 2 each PO HS PRN tab PRN Reason: Constipation Pantoprazole [Protonix] 40 mg PO AC-BRKFST #30 tab Continue Levothyroxine Sodium [Synthroid] 25 mcg PO QAM Vitamin B Complex W/ Vit C 1 dose PO DAILY Zinc Gluconate [Zinc] 50 mg PO DAILY Acetaminophen [Tylenol Extra Strength] 500 mg PO BID PRN PRN Reason: Pain Cholecalciferol [Vitamin D3 (10 Mcg = 400 Iu)] 125 mcg PO DAILY Vitamin E (Dl,Tocopheryl Acet) [Vitamin E (400 Iu = 180 mg)] 180 mg PO DAILY Atorvastatin Calcium [Lipitor] 80 mg PO HS Ibuprofen 800 mg PO Q8H PRN PRN Reason: Pain Apixaban [Eliquis] 5 mg PO BID #60 tab Changed Aspirin 81 mg PO DAILY #0 Discontinued Potassium Gluconate [Potassium Gluconate ER] 99 mg PO DAILY Metoprolol Succinate (ER) [Toprol Xl] 50 mg PO HS Discharge Medication List Cholecalciferol [Vitamin D3 (10 Mcg = 400 Iu)] 125 mcg PO DAILY 06/11/22 [History] Levothyroxine Sodium [Synthroid] 25 mcg PO QAM 06/11/22 [History] Vitamin B Complex W/ Vit C 1 dose PO DAILY 06/11/22 [History] Vitamin E (Dl,Tocopheryl Acet) [Vitamin E (400 Iu = 180 mg)] 180 mg PO DAILY 06/11/22 [History] Atorvastatin Calcium [Lipitor] 80 mg PO HS 06/14/22 [History] Zinc Gluconate [Zinc] 50 mg PO DAILY 06/14/22 [History] Acetaminophen [Tylenol Extra Strength] 500 mg PO BID PRN 06/16/22 [History] Ibuprofen 800 mg PO Q8H PRN 06/16/22 [History] Amiodarone [Cordarone] 400 mg PO BID #33 tab 06/23/22 [Rx] Apixaban [Eliquis] 5 mg PO BID #60 tab 06/23/22 [Rx] Aspirin 81 mg PO DAILY #0 06/23/22 [Rx] Metoprolol Tartrate [Lopressor] 50 mg PO BID #60 tab 06/23/22 [Rx] Pantoprazole [Protonix] 40 mg PO AC-BRKFST #30 tab 06/23/22 [Rx] Sennosides-Docusate Sodium [Senokot-S] 2 each PO HS PRN tab 06/23/22 [Rx] Follow up Appointment(s)/Referral(s): Coral Sapp MD [STAFF PHYSICIAN] - 07/13/22 2:00 pm Venita Negron NPC [Nurse Practitioner] - 06/28/22 2:30 pm (You will be seen in the surgeon's office behind the hospital in [facility], [address]. Office phone number is ) Rehab Bernadette MORRIS,Cardiac [NON-STAFF] - 4 Weeks (You will receive a phone call in approximately 4-6 weeks for evaluation for cardiac rehab) [facility] [NON-STAFF] - 1-2 Days (will call to set up home care. Any questions please call agency) Tim Cunningham MD [STAFF PHYSICIAN] - 06/28/22 3:00 pm (Your appointment is at the [address] office (inside [facility])) Lukasz Belle MD [STAFF PHYSICIAN] - 07/20/22 9:30 am Van Bernal DO [Primary Care Provider] - 06/30/22 9:30 am Ambulatory/Diagnostic Orders: Complete Blood Count w/diff [LAB.AMB] Time Frame: 3 Days, Location: None Selected Comprehensive Metabolic Panel [LAB.AMB] Time Frame: 3 Days, Location: None Selected Activity/Diet/Wound Care/Special Instructions: DISCHARGE INSTRUCTIONS: 1. No driving for 4 weeks, or until physician gives their ok. 2. The patient should sleep in their own bed, no medical bed needed. 3. Stairs are not an issue. If the bedroom is upstairs, it is advised that the patient go up at night and down in the morning for the first week. Go slowly, using handrail and take 1 step at a time. 4. MADDI hose are to be worn for 30 days post surgery or until physician discontinues. 5. Heart hugger is to be worn 100% of the time until physician discontinues.(except when showering) 6. No lifting, pushing, or pulling more than 10 pounds for 12 weeks. The physician will advise of any restriction changes. 7. The patient is expected to continue the prescribed walking program. 8. Continue pain control per as needed orders. 9. Continue with incentive spirometry and splinting/heart hugger until otherwise directed by the physician. 10. Must shower daily using liquid antibacterial soap 11. Routine sternal incision care. No powders, lotions, ointments on incisions. No dressings are necessary on incisions unless they are draining. Dermabond tape is to remain on sternal incision until surgeon follow-up. 12. Please call surgeon/MICROELECTRONICS ENGINEER for temp greater than 101 F or purulent drainage from incisions. 13. You should weigh yourself daily, record and bring log with you to follow up appointments. 14. All prescriptions given by surgeon for 30 days. Refills need to be filled through electronics technician/primary care physician. 15. A Red armband has been placed on the patient. It should be worn for 30 days post discharge from surgery and will be removed by the cardiac surgeons. If an ER visit is necessary, please make sure the number on the Red armband is called before going to ER. 16. You have been referred to and are expected to begin Cardiac Rehab in approximately 4-6 weeks. HOME HEALTH SERVICES TO PROVIDE: RN SKILLED HOME CARE SERVICES FOR POST-OP SURGICAL PATIENTS WITH THE FOLLOWING: Coronary Artery Bypass Surgery (CABG), Mitral Valve Replacement/Repair ( MVR), Aortic Valve Replacement/Repair (AVR) RN TO CONTINUE EDUCATION FROM ``ROAD TO A HEALTH HEART PATIENT EDUCATION MANUAL (GIVEN TO PATIENT IN THE HOSPITAL) MEDICATION RECONCILIATION WITH EDUCATION NEEDED ON FIRST HOME VISIT EMPHASIZE IMPORTANCE OF WEARING BREAST SUPPORT/HEART HUGGER ENCOURAGE USE OF INCENTIVE SPIROMETER 10 X EVERY HOUR WHILE AWAKE ENCOURAGE UTILIZATION OF LOWER EXTREMITY COMPRESSION STOCKINGS/MADDI HOSE and ELEVATE LEGS ABOVE LEVEL OF HEART WHILE AT REST. ENCOURAGE AMBULATION 3-5x/day INCREASING TOLERATES, WHILE AVOIDING EXTREMES IN TEMPERATURE FREQUENCY: RN TO OPEN THE PATIENT WITHIN 24 HOURS OF DISCHARGE FROM THE HOSPITAL WITH TELEHEALTH INSTALLED AT [facility], RN TO VISIT 2-3 X A WEEK FOR 4 WEEKS ESTABLISHED BY PATIENT NEEDS. LABORATORY: CBC, CMP TO BE DRAWN ON THE THIRD DAY HOME, (RAN STAT) FAX RESULTS TO [phone]. TELEHEALTH PARAMETERS: WEIGHT: NOTIFY MD OF WEIGHT GAIN OF 2 LBS IN 24 HOURS OR 5 LBS IN ONE WEEK HR: NOTIFY MD OF HR <55 BPM OR HR>100 BPM BP: NOTIFY MD IF BP <90/55 OR BP>140/100 O2 SAT: NOTIFY MD IF PO2<93% ON ROOM AIR SEND TELEHEALTH REPORT TO ASSEMBLING MACHINE OPERATOR AND CARDIOVASCULAR SURGEON THE FIRST WEEK OF CARE AND THEN BI-WEEKLY. PLEASE ADDITIONALLY COMMUNICATE ANY ABNORMALS AND NEW FINDINGS TO THE SURGEONS OFFICE. Discharge Disposition: HOME WITH HOME HEALTH SERVICES
--- NOTE | 2022-06-23 22:00 | P.PN ---
Subjective Patient is a 66-year-old female with a known history of atrial fibrillation on anticoagulation with Eliquis, coronary artery disease, hyperlipidemia, GERD, chronic back pain and history of uterine cancer status post hysterectomy and prior history of smoking was admitted to the hospital for elective coronary artery bypass graft. Patient states that she developed chest discomfort about 2 to 3 months ago with minimal activity and underwent stress test which showed reversible ischemia and subsequent cardiac catheterization showed multivessel co ronary disease. Patient was seen by CT surgery and recommends CABG. 2D echocardiogram showed ejection fraction 55 to 60%. No pulmonary hypertension. Patient was admitted to the hospital today for elective coronary revascularization procedure. Patient was transferred to ICU postoperatively and was intubated preoperatively. Patient is currently extubated and is sitting State. Complains of soreness in the surgical site. No complaints of chest pain. No nausea vomiting abdominal pain or diarrhea. No cough or sputum production Chest x-ray this morning showed postoperative changes of CABG. Laboratory test showed WBC 17.0 hemoglobin 10.7 and platelets 122 Sodium 137 potassium 4.4 chloride 107 bicarb is 26 BUN 14 and creatinine 0.7 and blood sugar 122 Calcium 8.0 AST 53 ALT 21 alk phos 54 and albumin 3.1 06/19/2022 Patient is currently in MICU. Sitting in the chair. Awake alert and oriented. Requiring oxygen at 2 L via nasal cannula. Mediastinal chest tube was removed today. Chest x-ray showed minimal basilar atelectasis. No evidence of CHF. Patient is using incentive spirometry. Otherwise denied any complaints of chest pain or shortness of breath. No fever no chills. No cough or sputum production. Laboratory pressure WBC 15.1 hemoglobin 9.2 and platelets 96 sodium 132 potassium 4.6 chloride 103 BUN 15 and creatinine 0.77 and blood sugar is 120 and albumin 3.0 06/20/2022 Patient is currently sitting in the recliner. Awake alert and oriented x3. Patient converted to A. fib last night and did receive amiodarone bolus. Lopressor was added. Cardiology is on board. Currently requiring oxygen at 2 L via nasal cannula. No chest pain or shortness of breath. No nausea vomiting abdominal pain or diarrhea. Chest x-ray showed postoperative changes of CABG. Chest tube was removed today. Laboratory test showed WBC 14.0 hemoglobin 9.9 and platelets 135 sodium 138 potassium 4.3 chloride 105 bicarb is 30 BUN 49 creatinine 0.84 and albumin 3.0. Cardiology and pulmonary is on board. 06/21/2022 Patient denies any other signs and symptoms. Vitals are stable. Patient's heart rate 90% room air Chest x-rays showed removal of the right chest tube, stable left chest tube, bilateral lower lobe infiltrates versus atelectasis. Eliquis started today Patient is not on antibiotics 06/22/2022 Patient clinically doing well, she has occasional chest pain but improved now. Reason is fine. She tolerates that well. No abdominal pain. No vomiting. Left-sided chest tube was removed and repeat chest x-ray looks his stable She was started on Eliquis yesterday as well as S Jose Manuel. 06/23/2022 Patient denies any complaints Vitals stable Labs reviewed Patient clinically stable Eliquis restarted as well as oral Lasix and aspirin Patient was instructed to follow up with PCP in one week after discharge and she agrees Objective - Vital Signs Vital signs: Vital Signs Temp 97.6 F 06/23/22 08:00 Pulse 86 06/23/22 12:00 Resp 18 06/23/22 12:00 BP 129/78 06/23/22 12:00 Pulse Ox 95 06/23/22 12:00 FiO2 40 06/17/22 19:22 Intake & Output 06/23/22 06/23/22 06/24/22 06:59 18:59 06:59 Intake Total 360 Output Total 1550 100 Balance -1550 260 Weight 74.3 kg Intake: Oral 360 Output: Urine 1550 100 Other: Voiding Method Toilet Toilet # Bowel Movements 1 ABP, PAP, CO, CI - Last Documented Arterial Blood Pressure 120/46 Pulmonary Artery Pressure 32/15 Cardiac Output 4.5 Cardiac Index 2.5 - Exam GENERAL: The patient is alert and oriented x3, not in any acute distress. Well developed, well nourished. HEENT: Pupils are round and equally reacting to light. EOMI. No scleral icterus. No conjunctival pallor. Normocephalic, atraumatic. No pharyngeal erythema. No thyromegaly. -CARDIOVASCULAR: S1 and S2 present. No murmurs, rubs, or gallops. Left side Chest Tube PULMONARY: Chest is clear to auscultation, no wheezing or crackles. ABDOMEN: Soft, nontender, nondistended, normoactive bowel sounds. No palpable organomegaly. MUSCULOSKELETAL: No joint swelling or deformity. EXTREMITIES: No cyanosis, clubbing, or pedal edema. NEUROLOGICAL: Gross neurological examination did not reveal any focal deficits. SKIN: No rashes. no petechiae. - Labs CBC & Chem 7: 06/23/22 08:21 06/23/22 08:21 Labs: Abnormal Lab Results - Last 24 Hours (Table) 06/23/22 06/23/22 Range/Units 08:21 08:21 WBC 13.3 H (3.8-10.6) k/uL RBC 3.17 L (3.80-5.40) m/uL Hgb 9.8 L (11.4-16.0) gm/dL Hct 29.8 L (34.0-46.0) % Glucose 137 H (74-99) mg/dL Calcium 8.0 L (8.4-10.2) mg/dL Assessment and Plan Assessment: Coronary artery disease status post CABG. HERNANDEZ to LAD and SVG to OM. Postop day 3. Hypoxemic respiratory failure perioperatively. Currently extubated. On 2 L oxygen via nasal cannula. Paroxysmal atrial fibrillation on anticoagulation with Eliquis Hypothyroidism History of endometrial cancer status post hysterectomy Hyperlipidemia GERD Osteoarthritis Prior history of smoking DVT prophylaxis patient is currently on heparin subcu every 8h Plan: Continue with the Eliquis Patient will be continued on telemetry monitoring. Continue with aspirin Plavix and statins and also on metoprolol 25 mg twice daily. Amiodarone changed to p.o. 400 mg twice daily. Encourage incentive spirometry and activity. Continue with GI prophylaxis. Continue insulin sliding scale for better blood sugar control. Further recommendations based on the clinical course.
--- NOTE | 2022-06-24 07:44 | CDI ---
Documentation Clarification Form Date: 06/23/2022 11:09:00 AM From: Renata Chen CCS, CCDS Admit Date: 06/17/2022 05:36:00 AM Patient Name: Olive Pizano Visit Number: [id number] Discharge Date: 06/23/2022 03:12:00 PM ATTENTION: The Clinical Documentation Specialists (CDI) and [facility] Coding Staff appreciate your assistance in clarifying documentation. Please respond to the clarification below the line at the bottom and electronically sign. The CDI & [facility] Coding staff will review the response and follow-up if needed. Please note: Queries are made part of the Legal Health Record. If you have any questions, please contact the author of this message via ITS. Dr. Coral Sapp: Hypoxemic Respiratory Failure secondary to above, expected outcome, remains on mechanical ventilator. Per the 06/18 Medical Management Consult and subsequent Progress Notes: Hypoxemic Respiratory Failure perioperatively, currently extubated on 2Lnc. Based on this information and the findings below, is there an additional diagnosis that is clinically appropriate for this patient? History/Risk Factors per the Hypercholesterolemia, endometrial cancer, Arthritis, Recent diagnosis of Atrial Fibrillation, Hypothyroidism, Former smoker. Clinical Indicators: Presented on 06/17 for a 2 vessel CABG. 06/17 VS: T 97.0, P 70, R 15 - 85; BP 124/78, PO 96 RA, intubated for procedure. 06/17 on 5Lnc. 06/17 LAB: CO2 25 Blood Gas: ABG pH: 7.39, pCO2 42, pO2 382, HCO3 26, Total CO2 27, O2 Sat 99.7, Hematocrit 24, K 4.9, Ionized Calcium 4.1, Glucose 144, Hgb 7.9. Treatment 06/17: IV na Chl w/Cefazolin 2,000 mg x1, IV Na Chl w/Heparin 5,000 units, IV Papaverine 360 mg x1, IV Albumin 250 mls @ 250 mls/hr q1H, INH Duoneb 3ml Q2H/prn, IV Amiodarone q6H/prn, IV Calcium Gluconate/Na Chl 100 mls @ 100 mls/hr x1, IV Dexmedetomidine 100 mls, IV Dextrose/Water 25 mls prn, IV Insulin. Please specify the acuity of the documented Hypoxemic Respiratory Failure: [ ] Acute Hypoxic Respiratory Failure [ ] Acute on Chronic Hypoxic Respiratory Failure [ ] Chronic Hypoxic Respiratory Failure [ ] Acute Respiratory Insufficiency [ x] Other Diagnosis, please specify: _Patient did not have any form of respiratory failure, she was intubated mostly for the procedure only and this is expected [ ] Unable to determine (Template Last Revised: October 2020) MTDD
== END 2022-06-23 15:12 | disposition home health service (06) | DRG 236 ==
LOC: 2ORMAIN 05:36 → 2SICU 13:13 → 3SCARD 06-21 12:47
PROVIDERS: ADMIT Surgery; ATTEND Surgery
PROC: 021009W Bypass Coronary Artery, One Artery from Aorta with Autologous Venous Tissue, Open Approach (ICD-10-PCS; 2022-06-17)
PROC: 02L70CK Occlusion of Left Atrial Appendage with Extraluminal Device, Open Approach (ICD-10-PCS; 2022-06-17)
PROC: 5A1221Z Performance of Cardiac Output, Continuous (ICD-10-PCS; 2022-06-17)
PROC: 0210093 Bypass Coronary Artery, One Artery from Coronary Artery with Autologous Venous Tissue, Open Approach (ICD-10-PCS; principal; 2022-06-17 08:00)
PROC: 06BP4ZZ Excision of Right Saphenous Vein, Percutaneous Endoscopic Approach (ICD-10-PCS; 2022-06-17 08:00)
PROC: 03B10ZZ Excision of Left Internal Mammary Artery, Open Approach (ICD-10-PCS; 2022-06-17 08:00)
DX: I25.118 Atherosclerotic heart disease of native coronary artery with other forms of angina pectoris (principal); D62 Acute posthemorrhagic anemia; I10 Essential (primary) hypertension; E03.9 Hypothyroidism, unspecified; D69.6 Thrombocytopenia, unspecified; I48.0 Paroxysmal atrial fibrillation; E78.00 Pure hypercholesterolemia, unspecified; G89.29 Other chronic pain; M19.90 Unspecified osteoarthritis, unspecified site; M54.9 Dorsalgia, unspecified; Z28.310 Unvaccinated for COVID-19; Z86.16 Personal history of COVID-19; Z88.1 Allergy status to other antibiotic agents; Z91.048 Other nonmedicinal substance allergy status; Z85.42 Personal history of malignant neoplasm of other parts of uterus; Z90.710 Acquired absence of both cervix and uterus; Z87.891 Personal history of nicotine dependence; Z79.899 Other long term (current) drug therapy; Z79.890 Hormone replacement therapy; Z79.82 Long term (current) use of aspirin; Z79.01 Long term (current) use of anticoagulants; Z82.49 Family history of ischemic heart disease and other diseases of the circulatory system; K21.9 Gastro-esophageal reflux disease without esophagitis
CPT/HCPCS: 71045; 71046; 80048; 80053; 82330; 82805; 83036; 83735; 85025; 85027; 85520; 85610; 85730; 86850; 86891; 86900; 86901; 86920; 94002; 94640; 94760